=== PATIENT | female | born 1980 | race Caucasian/White ===

== ENCOUNTER 2025-02-18 12:53 | Inpatient (IN) | payer SELFPAY ==
[2025-02-18] VITALS (8 sets, daily range): BP systolic 107–148; BP diastolic 65–98; PULSE 85–125; RESP 15–18; TEMP 36.7–37.1; O2SAT 97–100; BMI 31.4; BMI 34.2
--- NOTE | 2025-02-18 13:19 | EKG12_ITS ---
Test Reason : Blood Pressure : */* mmHG Vent. Rate : 103 BPM Atrial Rate : 103 BPM P-R Int : 126 ms QRS Dur : 66 ms QT Int : 362 ms P-R-T Axes : 53 26 -8 degrees QTcB Int : 474 ms Sinus tachycardia Nonspecific T wave abnormality Abnormal ECG Confirmed by Luca Ring ([id number]), advertising editor SHARMAINE ENCISO ([id number]) on 02/19/2025 10:59:26 AM Referred By: Confirmed By: Luca Ring
--- NOTE | 2025-02-18 13:20 | US_ITS ---
PROCEDURE: ABDOMEN LIMITED 02/18/2025 REASON FOR EXAM: PAIN, JAUNDICE TECHNIQUE: Procedure Code: USABDL Modality: US Procedure: ABDOMEN LIMITED COMPARISON: None FINDINGS: Exam limited by soft tissue attenuation, shadowing bowel gas, and suboptimal penetration of the echogenic liver. Liver: LEFT lobe not visible. Echogenic. 22.0 cm in length. Gallbladder: Distended without visualized stones, significant wall thickening or pericholecystic fluid. Sludge is present. Reportedly, sonographic Jj's was negative. Biliary tree: Unremarkable. CBD measures 3 mm. Pancreas: Partially obscured by shadowing bowel gas, grossly unremarkable as visualized. Right kidney: Unremarkable. 10.6 cm in length. Other: No visualized free fluid. US/Abdomen Limited IMPRESSION: 1. Somewhat limited exam. 2. Distended gallbladder with sludge. No biliary dilatation or definite eviden ce of acute cholecystitis. 3. Hepatomegaly with appearance of the parenchyma most frequently associated w ith hepatic steatosis or other chronic liver disease. Correlate with clinical and laboratory evaluation. 4. Additional description as above. Reading Location: [id number]
--- NOTE | 2025-02-18 13:26 | EDS_ITS ---
HPI HPI - Female History of Present Illness Chief Complaint: Complaint Narrative Narrative: Chief complaint and HPI: 44-year-old female with past medical history of alcohol use presents for evaluation of dysuria and right upper quadrant abdominal pain. Onset of symptoms several weeks but worsened in the last 5 days. On presentation, patient is jaundice which I brought to her and her 's attention. states he has been noticing yellowing discoloration of her eyes for the past week. She states that she drinks a bottle of liquor every few days. Does not feel that she is an alcoholic. She denies any history of daily NSAID use or hepatitis. Denies any gallbladder disease. She denies any fever, chills, shortness of breath, chest pain. Endorses abdominal bloating and decreased p.o. intake. Review of systems: See HPI Medications: As listed on the chart Allergies: As listed on the chart PFSH: Per chart Vital signs: As listed on the chart. Reviewed. Physical exam: Gen: A&O x3, NAD Head: Normocephalic, atraumatic Eyes: + sclera icterus, conjunctiva clear, PERRL ENT: Mildly dry mucous membranes Neck: Trachea midline, No JVD CV: Tachycardic, regular rhythm, no murmurs, no peripheral edema Resp: Lungs CTA BL, no w/r/c GI: Abd soft, mildly distended, tender to palpation in the right upper quadrant and epigastrium, no rebound or rigidity Msc: Full ROM, no deformity Skin: Warm, dry, jaundice Neuro: Alert, oriented, grossly intact, sensation intact Psych: Cooperative, appropriate mood and affect PFS PFS Home Medications ?Medication ?Instructions ?Recorded ?Last Taken ?Type omeprazole 20 mg tablet,delayed 20 mg PO DAILY 5 02/17/25 History release Allergy/AdvReac Type Severity Reaction Status Date / Time No Known Allergies Allergy Verified 02/18/25 12:56 Social History Smoking Status: Never smoker EXAM Physical Exam Const Vital Signs: 02/18/25 12:54 02/18/25 12:56 02/18/25 14:56 Temperature 98.2 F 98.2 F 98.6 F Temperature Source Oral Oral Oral Pulse Rate 125 H 120 H 85 Respiratory Rate 16 18 17 Blood Pressure 148/98 H 148/98 H 110/65 Blood Pressure Mean 114 114 80 Pulse Ox 100 100 100 Oxygen Delivery Method Room Air Room Air Room Air 02/18/25 16:00 02/18/25 16:19 Temperature 98.8 F 98.8 F Temperature Source Oral Pulse Rate 92 92 Respiratory Rate 16 16 Blood Pressure 115/74 115/74 Blood Pressure Mean 87 87 Pulse Ox 98 98 Oxygen Delivery Method Room Air MDM MDM MDM Narrative Medical decision making narrative: 44-year-old female with past medical history of alcohol use presents for evaluation of dysuria and right upper quadrant abdominal pain. Onset of symptoms several weeks but worsened in the last 5 days. On presentation, patient is jaundice which I brought to her and her 's attention. states he has been noticing yellowing discoloration of her eyes for the past week. She states that she drinks a bottle of liquor every few days. Differential diagnosis includes but is not limited to choledocholithiasis, hepatitis, cirrhosis, pancreatic cancer, UTI. NS bolus, morphine, Zofran ordered. Abdominal pain workup ordered including ultrasound. CBC without leukocytosis or anemia. Platelets unremarkable. INR 1.2. CMP shows dehydration without MACIEJ. Patient has hypokalemia of 3.2. P.o. potassium ordered. Lactic acid 3.3. I suspect that lactic acid is elevated secondary to dehydration as well as UTI. Will cover broadly with Zosyn. Urine culture sent. NS bolus running. Patient has hyperbilirubinemia with a direct of 6.81, AST of 324, ALT of 100. Ammonia unremarkable. Lipase unremarkable. Abdominal ultrasound shows distended gallbladder with sludge. No biliary dilation or acute cholecystitis. Common bile duct measures 3 mm. Biliary tree unremarkable. Patient has hepatomegaly with hepatic steatosis or other chronic liver. Pancreas partially obscured by shadowing bowel gas, grossly unremarkable. At this point in time, no biliary obstruction to explain her hyperbilirubinemia. GI, Dr. Trotter was consulted and patient was discussed. Recommended CT abdomen pelvis to get a baseline of the liver. Suspect this is all alcoholic hepatitis. Alcohol level unremarkable. Ammonia level unremarkable. Dr. Trotter agrees with admission. CT abdomen pelvis ordered. I spoke with Dr. Balderrama who accepted admission. She will evaluate the patient after CT abdomen pelvis is performed. Patient was updated of all the results and confirmed understanding of the plan. CT abdomen pelvis pending at this time. EKG: Interpreted by me/EM physician: EKG shows sinus tachycardia nonspecific ST changes. Heart rate 103 Impression: 1. Hyperbilirubinemia 2. Transaminitis 3. Suspect alcoholic hepatitis 4. UTI 6. Hypokalemia with dehydration 7. History of alcohol abuse Lab Data Labs: Laboratory Results - last 24 hr 02/18/25 02/18/25 13:48 14:11 WBC 9.9 RBC 3.81 L Hgb 13.8 Hct 38.3 MCV 100.5 H MCH 36.2 H MCHC 36.0 RDW Std Deviation 63.7 H RDW Coeff of Chrissy 17.3 H Plt Count 196 MPV 10.1 Immature Gran % (Auto) 0.500 Neut % (Auto) 83.8 H Lymph % (Auto) 7.7 L [place] % (Auto) 6.0 Eos % (Auto) 1.0 Baso % (Auto) 1.0 Absolute Neuts (auto) 8.3 H Absolute Lymphs (auto) 0.76 L Nucleated RBC % 0 PT 15.1 H INR 1.2 Sodium 135 Potassium 3.2 L Chloride 92 L Carbon Dioxide 26.7 Anion Gap 15 BUN 5 Creatinine 0.87 Estim Creat Clear Calc 87.26 Est GFR (MDRD) Non-Af 84 BUN/Creatinine Ratio 6.0 L Glucose 120 H Lactic Acid 3.3 H* Calcium 9.2 Total Bilirubin 10.30 H Direct Bilirubin 6.81 H AST 324 H ALT 100 H Alkaline Phosphatase 426 H Ammonia 49.1 Total Protein 8.0 Albumin 3.7 Globulin 4.3 H Lipase 42 Urine Color SEE COMMENT BELOW Urine Clarity Turbid Urine pH 5.0 Ur Specific [place] 1.020 Urine Protein 100 H Urine Glucose (UA) Normal Urine Ketones 5 H Urine Occult Blood 150 H Urine Nitrite Negative Urine Bilirubin 6 H Urine Urobilinogen 12 H Ur Leukocyte Esterase Negative Urine RBC 0 SEEN Urine WBC 10-25 SEEN Ur Squamous Epith Cells 5-10 SEEN Urine Bacteria 3+ Urine Mucus 0 SEEN Ethyl Alcohol < 10.1 Radiography Diagnostic Testing: Clinical Impression(s) from Imaging Studies Abdomen Ultrasound 02/18/25 13:20 IMPRESSION: 1. Somewhat limited exam. 2. Distended gallbladder with sludge. No biliary dilatation or definite evidence of acute cholecystitis. 3. Hepatomegaly with appearance of the parenchyma most frequently associated with hepatic steatosis or other chronic liver disease. Correlate with clinical and laboratory evaluation. 4. Additional description as above. Reading Location: [facility] Discharge Plan Triage Chief Complaint: Complaint ED Provider: Dragan Montiel Dx/Rx/DC Orders Prescriptions: No Action omeprazole 20 mg tablet,delayed release (DR/EC) 20 mg PO DAILY Primary Care Provider: Care Physician,No Primary Referrals: Fadi Lawrence MD [STAFF PHYSICIAN] - Print Language: Georgian
[2025-02-18] MEDS: 0.9% Normal Saline (1000mL) 1,000 ML 999 ML IV ×2 (13:46→19:58)
[2025-02-18 13:57] LABS: Hematocrit 38.3 % (37-47); Hemoglobin 13.8 g/dL (12.0-15.0); Immature Granulocytes Count 0.050 X10^3/uL (0.0-0.0); Mean Corp Hgb Conc 36.0 g/dL (32-36); Mean Corpuscular Volume 100.5 fL (81-99); Mean Platelet Vol. 10.1 fl (6.2-12.0); NRBC Flagged by Analyzer 0 % (0-5); Platelet Count 196 K/mm3 (150-450); RBC Distribution Width CV 17.3 % (11.6-14.6); RBC Distribution Width SD 63.7 fl (35.1-43.9); Red Blood Count 3.81 M/mm3 (4.2-5.4); White Blood Count 9.9 K/mm3 (4.4-11.0)
[2025-02-18 14:05] LABS: Prothrombin Time (Protime)PT. 15.1 SECONDS (11.7-14.9)
--- OUTSIDE RECORDS SUMMARY | 2025-02-18 14:07 | XMS RPT_ITS | CCD ---
Author Organization [facility] Care Team Providers Care Strategic Marketing Leader Name Role Phone KATTY ULLOA MD Unavailable Unavailabl KATTY Sr MD Unavailable Unavailabl e NO REFERRING DR Unavailable Unavailable Unavailable Primary Care Provider Unavailabl e Medications Completed/Discontinued Medications Medication Drug Class(es) Dates Sig (Normalized) Sig (Original) 24 hr buPROPion hydrochloride 300 mg extended release oral tablet (1 source) Aminoketone Start: 12-13-2014 take 1 tablet by mouth once daily buPROPion XL (WELLBUTRIN XL) 300 mg 24 hr tablet Indications: Anxiety disorder , Depression, major Take 1 tablet by mouth once daily. 30 tablet 0 12/13/2014 Active Comment on above: Take 1 tablet by jae th once daily. cholecalciferol 0.05 mg oral capsule (2 sources) Vitamin D Start: 10-08-2014 take 1 tablet by mouth once daily Cholecalciferol, Vitamin D3, 2,000 unit cap Indications: Vitamin D deficiency Take 1 tablet by mouth once daily. 30 capsule 6 10/08/2014 Active Start: 11-28-2013 take 1 capsule by mo [facility] every week cholecalciferol, Vitamin D3, 50,000 unit cap capsule Indications: Vitamin D deficiency Take 1 capsule by mouth once each week. 12 capsule 0 11/28/2013 Active Comment on above: Take 1 capsule by mo [facility] once each week. Take 1 tablet by jae th once daily. clonazePAM 0.5 mg oral tablet (1 source) Benzodiazepine Start: 015 take 1 tablet by mouth twice daily as needed clonazePAM (KLONOPIN) 0.5 mg tablet Indications: Anxiety disorder Take 1 tablet by mouth twice daily as needed. 60 tablet 2 11/04/2014 Active Comment on above: Take 1 tablet by jae th twice daily as needed. cyclobenzaprine hydrochloride 10 mg oral tablet (1 source) Muscle Relaxant Start: 015 take 1 tablet by mouth three times daily as needed for muscle spasms cyclobenzaprine (FLEXERIL) 10 mg tablet Indications: Trapezius muscle spasm Take 1 tablet by mouth three times daily as needed for Muscle Spasm. 60 tablet 3 11/04/2014 Active Comment on above: Take 1 tablet by jae th three times daily as needed for Muscle Spasm. Problems Active Problems Problem Classification Problem Date Documented Da te Episodic/Chronic Anxiety disorders (1 source) Anxiety disorder; Translations: [Anxiety disorder, unspecified] Onset: 11-23-2013 11-23-2013 Chronic External Injury - Natural / Environment (1 source) Exposure to other specified factors, initial encounter; Translations: [EXPOSURE OTHER SPEC FACT] Onset: 11-19-2016 Mood disorders (1 source) Major depressive disorder; Translations: [Major depressive disorder, single episode, unspecified] Onset: 11-23-2013 11-23-2013 Chronic Other female genital disorders (1 source) Dyspareunia; Translations: [Dyspareunia] Onset: 01-23-2014 01-23-2014 Chronic Residual codes; unclassified (1 source) Viral syndrome; Translations: [Other general symptoms and signs] 07-03-2023 Episodic Substance-related disorders (1 source) Nicotine dependence, cigarettes, uncomplicated; Translations: [NICOTINE DEPEND CIGARETT] Onset: 11-19-2016 Chronic Past or Other Problems Problem Classification Problem Date Documented Da te Episodic/Chronic Abdominal pain (1 source) Chronic pelvic pain of female; Translations: [Pelvic and perineal pain] Onset: 01-23-2014 01-23-2014 Episodic Malaise and fatigue (1 source) Fatigue; Translations: [Other fatigue] Onset: 11-23-2013 11-23-2013 Episodic Other injuries and conditions due to external causes (2 sources) Unspecified injury of left wrist, hand and finger(s), initial encounter; Translations: [UNS INJ LT WRIST HAND FI] Onset: 11-19-2016 Episodic Sprains and strains (1 source) Unspecified sprain of left thumb, initial encounter; Translations: [UNSPECIFIED SPRAIN LT TH] Onset: 11-19-2016 Episodic Results Test Name Value Interpretation Reference Range Facility [facility] 07-04-2023 [facility] Telephone ([facility]) NEVAEH NAVARRETE ([id number]) 1980 F JAY[place] Date Time Provider Department 07/04/23 CONCEPCION GOFF During your visit today, we recorded the following information about you: Leann Loco 07/04/2023 10:08 AM Signed Nevaeh is calling Concepcion Goff PA-C today to request a call to advise the lab results from the [facility] in clinic on 07/03/2023 Please call number below which has been verified Patient has been identified by name and birthdate. Duration of symptoms: days Person calling: self Call patient at: at home [phone] (home) Was an appointment scheduled: No Closing statement: Symptom Call: Thank you for calling [facility], your call is very important. A nurse will call in approximately 2-4 hours during business hours. If this is an emergency, please contact 911. Ximena Barcenas APRN.MECHANICAL SERVICE TECHNICIAN 07/04/2023 10:15 AM Signed Spoke to patient. Notified her of positive influenza A results. Outside the window for tamiflu. Allergies As of Date: 07/04/2023 (No Known Allergies) Date Reviewed: 07/03/2023 Reviewed by: Janice Diamond MA - Fully Assessed Reason for Visit: Results [95] Prescriptions as of 07/04/2023 - buPROPion XL (WELLBUTRIN XL) 300 mg 24 hr tablet Take 1 tablet by mouth once daily. - cyclobenzaprine (FLEXERIL) 10 mg tablet Take 1 tablet by mouth three times daily as needed for Muscle Spasm. - clonazePAM (KLONOPIN) 0.5 mg tablet Take 1 tablet by mouth twice daily as needed. - Cholecalciferol, Vitamin D3, 2,000 unit cap Take 1 tablet by mouth once daily. - cholecalciferol, Vitamin D3, 50,000 unit cap capsule Take 1 capsule by mouth once each week. Problem List As Of Date 07/04/2023 Noted Resolved Fatigue [R53.83] 11/23/2013 Anxiety disorder [F41.9] 11/23/2013 Depression, major (HCC) [F32.9] 11/23/2013 Dyspareunia [[id number]] 01/23/2014 Chronic pelvic pain in female [R10.2, G89.29] 01/23/2014 Encounter Status:Closed by XIMENA DENSON on 07/04/23 [facility] CNCOon 07-03-2023 CNCO Letter Text [facility] CNOVon 07-03-2023 CNOV Office Visit ([place] ) NEVAEH NAVARRETE ([id number]) 1980 [facility] Date Time Provider Department 07/03/23 1:00 PM CONCEPCION GOFF During your visit today, we recorded the following information about you: Temperature Pulse Blood pressure Weight 98.5 degrees 85/minute 164/95 89.4 kg Concepcion Goff PA-C 07/03/2023 1:27 PM Signed Nevaeh Navarrete is a 42 year old female with a complaint of cough, nasal congestion, rhinorrhea, fever up to 100.5, chills x 3 days. Works at [employer]. Diarrhea today. Had one episode of vomiting 3 days ago. Denies sob or any other complaints. Home covid test negative on day 1 of symptoms. REVIEW OF SYSTEMS See HPI, otherwise unremarkable. PAST MEDICAL HISTORY Diagnosis Date Anxiety disorder Depression, major Tobacco abuse Vitamin D deficiency 11/2013 PAST SURGICAL HISTORY Procedure Laterality Date TUBAL LIGATION, 2001 FAMILY HISTORY Problem Relation Age of Onset Breast Cancer Paternal Grandmother other (dementia [Other]) Maternal Grandmother Diabetes Paternal Grandfather Social History Tobacco Use Smoking status: Every Day Packs/day: 0.50 Years: 10.00 Additional pack years: 0.00 Total pack years: 5.00 Types: Cigarettes Smokeless tobacco: Never Substance Use Topics Alcohol use: Yes Comment: rarely Drug use: No PHYSICAL EXAMINATION: Vitals: BP 164/95 Pulse 85 Temp 36.9 ?C (98.5 ?F) Wt 89.4 kg (196 lb 15.7 oz) LMP 07/21/2014 SpO2 100% BMI 32.53 kg/m? General Appearance: Well appearing, alert, in no acute distress, well-hydrated, well nourished.. Ears: External ears normal, canals clear. TMs clear Nose/Sinuses: Positive findings: mucosa erythematous and swollen. Oropharynx: Lips, mucosa, and tongue normal, teeth and gums normal, oropharynx normal. Neck: Supple, no adenopathy. Lungs: Lungs clear to auscultation. No wheezing, rhonchi, rales.. Heart: RRR without murmur, gallop, or rubs. No ectopy. ASSESSMENT: DIAGNOSIS: (R68.89) Flu-like symptoms (primary encounter diagnosis) PLAN: ASSESSMENT/PLAN: 1. Flu-like symptoms - ICD9: 780.99, ICD10: R68.89 Supportive care, follow up for new, worsening or persistent sx. Pt in agreement with the plan and verbalized understanding. - COVID AND INFLUENZA A/B AND RSV NAAT, ROUTINE Concepcion Goff PA-C Referring Provider: SELF [200] Allergies As of Date: 07/03/2023 (No Known Allergies) Date Reviewed: 07/03/2023 Reviewed by: Janice Diamond MA - Fully Assessed Reason for Visit: Viral Syndrome [119] Cmt: Symptoms started on the 11 cough, body aches diarrhea No diarrhea this morning, headache, head congestion. Primary Visit Diagnosis:Flu-like symptoms [R68.89] Order(s):COVID AND INFLUENZA A/B AND RSV NAAT, ROUTINE [[id number]] Order #: [id number]. #:[id number] Prescriptions as of 07/03/2023 - buPROPion XL (WELLBUTRIN XL) 300 mg 24 hr tablet Take 1 tablet by mouth once daily. - cyclobenzaprine (FLEXERIL) 10 mg tablet Take 1 tablet by mouth three times daily as needed for Muscle Spasm. - clonazePAM (KLONOPIN) 0.5 mg tablet Take 1 tablet by mouth twice daily as needed. - Cholecalciferol, Vitamin D3, 2,000 unit cap Take 1 tablet by mouth once daily. - cholecalciferol, Vitamin D3, 50,000 unit cap capsule Take 1 capsule by mouth once each week. Problem List As Of Date 07/03/2023 Noted Resolved Fatigue [R53.83] 11/23/2013 Anxiety disorder [F41.9] 11/23/2013 Depression, major (HCC) [F32.9] 11/23/2013 Dyspareunia [CJD7616] 01/23/2014 Chronic pelvic pain in female [R10.2, G89.29] 01/23/2014 Encounter Status:Closed by CONCEPCION GOFF on 07/03/23 Normal [facility] COVID AND INFLUENZA A/B AND RSV NAAT, ROUTINEon 07-03-2023 SARS-CoV-2 (COVID-19) RNA ELGIN+probe Ql (Unsp spec) COVID 19 RESULT: Not detected The method used is RT-PCR or an equivalent NAAT method. Reference Range (the expected result in uninfected individuals): Not detected INFLUENZA A PCR: Detected INFLUENZA B PCR: Not detected RSV PCR: Not detected Abnormal [facility] Comment on above: Performed By: #### C VFLRS #### [facility] CLIA [id number] [address] [place] [address] [place] Phone Msgon 05-21-2021 Phone Msg - From: Elizabeth Sheffield To: Shirin Johnson; Sent: 04/30/2021 10:56:44 EST Subject: re msg 04/16 Pt is calling back, this is the first day of her period and she was told to call to get scheduled for IUD. No available appts. [phone] From: Shirin Johnson To: Elizabeth Sheffield; Sent: 04/30/2021 11:22:14 EST Subject: RE: re msg 04/16 Is patient aware to call back next month? From: Elizabeth Sheffield To: Shirin Johnson; Sent: 04/30/2021 12:54:55 EST Subject: RE: re msg 04/16 she was under the impression that Dr would fit her in to an appt, so I dont think she does From: Shirin Johnson To: [facility] [employer]; Sent: 04/30/2021 13:15:44 EST Subject: FW: re msg 04/16 I LVM for patient- Please push patient through to the office Patient has not returned call. Normal [facility] Amb Office-Progress Notes-Pr ovideron 04-19-2021 Amb Office-Progress Notes-Provider Assessment/Plan 1. Abnormal uterine bleeding (AUB) N93.9 plan Mirena IUD 2. Menorrhagia N92.0 3. Tobacco use Z72.0 Chief Complaint f/u from [facility] on 03/31, discuss surgery History of Present Illness AUB- bleeds for a full month emb was normal + tobacco didn't tolerate aygestin no evidence of adenomyosis risk bleeding expectations discussed with mirena, ablation but hyst is major surgery she isn't ready for hyst yet she states recommended IUD if she doesn't like we can do ablation but can't go reverse Physical Exam Vitals & Measurements BP: 140/90 HT: 165 cm WT: 88.8 kg BMI: 32.62 Depression Screening Scores Initial Depression Screen Score: 0 (04/13/21 08:33:00) Fall Risk Assessment Is the patient ambulatory (mobile): Yes (04/13/21 08:33:00) Have you had a fall within the past: No (04/13/21 08:33:00) Have you had 2 or more falls in the past: No (04/13/21 08:33:00) OB History History (2,0,0,2) # 1 Baby 1 Outcome Date: 1998 Outcome: Live Outcome or Result: Vaginal Gender: Male Gest Age: 40 weeks Wt: -- Hospital: other [facility] Labor: -- Child's Name: -- Baby's Father: -- # 2 Baby 1 Outcome Date: 2001 Outcome: Live Outcome or Result: Vaginal Gender: Female Gest Age: 40 weeks Wt: -- Hospital: other [facility] Labor: -- Child's Name: -- Baby's Father: -- Problem List/Past Medical History Ongoing Abnormal uterine bleeding (AUB) Adult BMI 32.0-32.9 kg/sq m Menorrhagia Tobacco use Historical Procedure/Surgical History Last pap - Neg w/Neg HPV (02/17/2021) BTL (2001) Mammogram-never Allergies No Known Allergies No Known Medication Allergies Social History Alcohol Current, 12/08/2020 Sexual Other contraceptive use: BTL., 12/08/2020 Substance Abuse - Denies Substance Abuse, 12/08/2020 Tobacco 5-9 cigarettes (between 1/4 to 1/2 pack)/day in last 30 days Tobacco Use:., 12/08/2020 Family History Breast cancer..: Grandmother. Normal [facility] Phone Msgon 04-16-2021 Phone Msg - From: Shirin Johnson To: [facility] [employer]; Sent: 04/13/2021 09:06:40 EDT Subject: PA Will you please PA the patient for the Mirena for Dr. Betancourt From: Leandra Motta ([facility] [employer]) To: Shirin Johnson; Sent: 04/16/2021 13:36:53 EDT Subject: RE: PA Spoke with Erika and pt is covered under [employer] for insertion/removal. No copay. Calendar year benefits. REF# [id number] From: Shirin Johnson [facility] [employer]; Sent: 04/16/2021 15:50:51 EDT Subject: RE: PA Patient made aware and advised to call on the first day of her period to get her scheduled Normal [facility] Ambulatory Clinical Summaryo n 04-13-2021 Ambulatory Clinical Summary NEVAEH NAVARRETE :1980 Visit Date:04/13/2021 Ambulatory Visit Instructions Your Diagnosis Abnormal uterine bleeding (AUB) Menorrhagia Your Care Team Attending Physician - SERENA ARREDONDO Primary Care Physician - NO FAMILY PHYSICIAN, 837 Procedures Performed Last pap - Neg w/Neg HPV (02/17/2021) BTL (2001) Mammogram-never Discharge Vitals Blood Pressure 140/90 Height 165 cm Weight 88.8 kg BMI 32.62 Systolic Blood Pressure: 140 mmHg (04/13/21 08:33:00) Diastolic Blood Pressure: 90 mmHg (04/13/21 08:33:00) Mean Arterial Pressure: 107 mmHg (04/13/21 08:33:00) Height/Length Measured: 165 cm (04/13/21 08:33:00) Weight Measured: 88.8 kg (04/13/21 08:33:00) Body Mass Index Measured: 32.62 kg/m2 (04/13/21 08:33:00) Weight Measured - lbs2: 195 lb (04/13/21 08:33:00) Height/Length Measured - in2: 64.96 in (04/13/21 08:33:00) Body Mass Index Measured English2: 32.49 kg/m2 (04/13/21 08:33:00) BSA: 2.01 m2 (04/13/21 08:33:00) Ht/Wt Measurement Refused by Patient?2: No (04/13/21 08:33:00) What to do next Scheduled Follow-Up Appointments No results Medications What How Much When Why Instructions Unchanged norethindrone (Aygestin 5 mg oral tablet) 1 Tabs Oral DAILY Abnormal uterine bleeding (AUB) Unchanged progesterone (Prometrium 100 mg oral capsule) 1 Capsules Oral AT BEDTIME Dysmenorrhea Allergies No Known Allergies No Known Medication Allergies Problems Ongoing - Any problem that you are currently receiving treatment for. Abnormal uterine bleeding (AUB) Adult BMI 32.0-32.9 kg/sq m Menorrhagia Tobacco use Historical - Any problem that you are no longer receiving treatment for. Common Emergency Awareness Tips IS IT A STROKE? Act FAST and Check for these signs: FACE Does the face look uneven? ARM Does one arm drift down? SPEECH Does their speech sound strange? TIME Call at any sign of stroke Heart Attack Signs Chest discomfort: Most heart attacks involve discomfort in the center of the chest and lasts more than a few minutes, or goes away and comes back. It can feel like uncomfortable pressure, squeezing, fullness or pain. Discomfort in upper body: Symptoms can include pain or discomfort in one or both arms, back, neck, jaw or stomach. Shortness of breath: With or without discomfort. Other signs: Breaking out in a cold sweat, nausea, or lightheaded. Remember, MINUTES DO MATTER. If you experience any of these heart attack warning signs, call to get immediate medical attention! Normal [facility] HYSTERSONOGRAPHY OFFICE Peter Callaway 04-09-2021 HYSTERSONOGRAPHY OFFICE READ INBOUND SALES ADVISOR U/S TV Date: 03/31/2021 Indication: AUB SIS Uterus: 6.4 cm x 3.8 cm x 5.0 cm Endometrium: 4.0mm Position: retroverted Right Ovary: 13 mm x 16 mm x 14 mm well visualized, subcentimeter follicles present Flow normal Left Ovary: 14 mm x 13 mm x 8 mm well visualized, subcentimeter follicles present Flow normal No Free fluid in cul de sac IMPRESSION: Normal pelvic us No adnexal masses No acute process SIS= Saline infused Sonohysterogram Catheter seen inside cavity fluid distends with adequate view of uterine cavity. Endometrial lining visualized without difficulty. No pathology seen. Findings reviewed with patient. _ Normal [facility] Comment on above: Order Comment: Order ed on Fin# [id number] Result Comment: Tech nologist: DM Dictated By: SERENA ARREDONDO Signed By: SERENA ARREDONDO Transcribed: 04.09.2021 08:23 Signed Out: 04/09/21 08:23:31 Amb Office-Progress Notes-Pr ovideron 04-05-2021 Amb Office-Progress Notes-Provider Assessment/Plan 1. Abnormal uterine bleeding (AUB) N93.9 emb done 2. Pre-procedure lab exam Z01.812 3. Tobacco use Z72.0 no estrogen Chief Complaint u/s f/u, AUB, doesnt like aygestin makes her feel weird History of Present Illness AUB + tobacco prometrium didn't control bleeding Aygestin controlled bleeding but she didn't like how it made her feel lining today is thin SIS done with EMb to discuss next step of treatment she reported no period for 45 days and then reported to me bleeding non stop mirena or ablation or hyst discussed will get results of biopsy and discussed no evidence of adenomyosis risk bleeding expectations discussed with mirena, ablation but hyst is major surgery Physical Exam Vitals & Measurements BP: 130/88 HT: 165 cm WT: 88.8 kg BMI: 32.62 Depression Screening Scores Initial Depression Screen Score: 0 (03/31/21 10:16:00) Fall Risk Assessment Is the patient ambulatory (mobile): Yes (03/31/21 10:16:00) Have you had a fall within the past: No (03/31/21 10:16:00) Have you had 2 or more falls in the past: No (03/31/21 10:16:00) Procedure: Saline Infused Sonogram and Endometrial Biopsy Consent: Informed consent was obtained. Prep: The patient was placed in the dorsal lithotomy position, a speculum was placed in the vagina. The cervix was cleansed with betadyne solution.. Procedure: The cervix was stabilized with ring forceps. Uterus was sounded to __6_cm. Endometrial pipelle placed without difficulty and multiple passes were made. Adequate tissue obtained. The specimen sent to pathology. The SIS catheter was placed into the uterus easily, and saline was infused without difficulty. The cavity was visualized well. There was no evidence of pathology. There was not evidence of adenomyosis. Post procedure: Patient tolerated procedure well OB History History (2,0,0,2) # 1 Baby 1 Outcome Date: 1998 Outcome: Live Outcome or Result: Vaginal Gender: Male Gest Age: 40 weeks Wt: -- Hospital: other [facility]: -- Child's Name: -- Baby's Father: -- # 2 Baby 1 Outcome Date: 2001 Outcome: Live Outcome or Result: Vaginal Gender: Female Gest Age: 40 weeks Wt: -- Hospital: other [facility]: -- Child's Name: -- Baby's Father: -- Problem List/Past Medical History Ongoing Abnormal uterine bleeding (AUB) Adult BMI 32.0-32.9 kg/sq m Menorrhagia Tobacco use Historical Procedure/Surgical History Last pap - Neg w/Neg HPV (02/17/2021) BTL (2001) Mammogram-never Medications Aygestin 5 mg oral tablet, 5 mg= 1 tabs, ORAL, DAILY Allergies No Known Allergies No Known Medication Allergies Social History Alcohol Current, 12/08/2020 Sexual Other contraceptive use: BTL., 12/08/2020 Substance Abuse - Denies Substance Abuse, 12/08/2020 Tobacco 5-9 cigarettes (between 1/4 to 1/2 pack)/day in last 30 days Tobacco Use:., 12/08/2020 Family History Breast cancer..: Grandmother. Normal [facility] SURGICAL PATH REPORTon 04-03 SURGICAL PATH REPORT [facility] Department of Pathology [address] [place] [id number] Name: NEVAEH NAVARRETE : 1980 [facility] [id number] Number: Gender: Female Location: [facility]. Admit 40 years Attending SERENA ARREDONDO Age: Provider: Ordering SERENA ARREDONDO Provider: Consulting: Surgical Pathology Report ACCESSION: COLLECTED DATE/TIME: RECEIVED DATE/TIME: PATHOLOGIST: [id number] 03/31/2021 10:40 EDT 04/01/2021 08:31 EDT PILO FELIPE MD Final Diagnosis ENDOMETRIUM, BIOPSY: - STRIPS AND FRAGMENTS OF BENIGN ENDOMETRIUM OF INDETERMINATE DATE. - NEGATIVE FOR MALIGNANCY OR HYPERPLASIA. PILO FELIPE PATHOLOGIST (Electronic Signature) Date Verified 04/03/2021 WW Clinical Data PRE-OP DIAGNOSIS: AUB POST-OP DIAGNOSIS: Not specified PROCEDURES: SIS/endometrial biopsy SPECIMEN: Endometrial biopsy Gross Description Labeled endometrial bx. Received in formalin are multiple irregular grover feathery segments of soft tissue. The specimen is filtered and has a filtrate aggregate dimension of 0.9 x 0.5 x 0.1 cm. The specimen is entirely submitted in one cassette. MP/ww 04/01/2021 Codes CPT CODE: 79651 Print Date/ 04/03/2021 16:09 EDT Number: Time: Normal [facility] Comment on above: Performed By: #### [id number] ####[facility] [id number] [place] [address] Medical Director: Kristian Arellano MD [facility] Clinical Summary NEVAEH NAVARRETE :1980 Visit Date:03/31/2021 Ambulatory Visit Instructions Your Diagnosis Abnormal uterine bleeding (AUB) Pre-procedure lab exam Tobacco use Tests Performed AMB Urine POC [id number] US HYSTERSONOGRAPHY OFFICE READ -- Results Pending -- You will be contacted within 72 hours with your results. Your Care Team Attending Physician - SERENA ARREDONDO Primary Care Physician - NO FAMILY PHYSICIAN, 837 Procedures Performed Last pap - Neg w/Neg HPV (02/17/2021) BTL (2001) Mammogram-never Discharge Vitals Blood Pressure 130/88 Height 165 cm Weight 88.8 kg BMI 32.62 Systolic Blood Pressure: 130 mmHg (03/31/21 10:16:00) Diastolic Blood Pressure: 88 mmHg (03/31/21 10:16:00) Mean Arterial Pressure: 102 mmHg (03/31/21 10:16:00) Height/Length Measured: 165 cm (03/31/21 10:16:00) Weight Measured: 88.8 kg (03/31/21 10:16:00) Body Mass Index Measured: 32.62 kg/m2 (03/31/21 10:16:00) Weight Measured - lbs2: 195 lb (03/31/21 10:16:00) Height/Length Measured - in2: 64.96 in (03/31/21 10:16:00) Body Mass Index Measured English2: 32.49 kg/m2 (03/31/21 10:16:00) BSA: 2.01 m2 (03/31/21 10:16:00) Ht/Wt Measurement Refused by Patient?2: No (03/31/21 10:16:00) What to do next Scheduled Follow-Up Appointments Appointment Type Reason for visit Day With Date Time Where City&State Established Patient 2 Week Follow Up- Discuss Results Tuesday Serena Betancourt April 13, 2021 08:20 am EDT Sandra LEIJA Medications What How Much When Why Instructions Unchanged norethindrone (Aygestin 5 mg oral tablet) 1 Tabs Oral DAILY Abnormal uterine bleeding (AUB) Unchanged progesterone (Prometrium 100 mg oral capsule) 1 Capsules Oral AT BEDTIME Dysmenorrhea Test Results AMB Urine POC [id number] (03/31/2021) U beta hCG Ql - Negative Allergies No Known Allergies No Known Medication Allergies Problems Ongoing - Any problem that you are currently receiving treatment for. Abnormal uterine bleeding (AUB) Adult BMI 32.0-32.9 kg/sq m Menorrhagia Tobacco use Historical - Any problem that you are no longer receiving treatment for. Common Emergency Awareness Tips IS IT A STROKE? Act FAST and Check for these signs: FACE Does the face look uneven? ARM Does one arm drift down? SPEECH Does their speech sound strange? TIME Call at any sign of stroke Heart Attack Signs Chest discomfort: Most heart attacks involve discomfort in the center of the chest and lasts more than a few minutes, or goes away and comes back. It can feel like uncomfortable pressure, squeezing, fullness or pain. Discomfort in upper body: Symptoms can include pain or discomfort in one or both arms, back, neck, jaw or stomach. Shortness of breath: With or without discomfort. Other signs: Breaking out in a cold sweat, nausea, or lightheaded. Remember, MINUTES DO MATTER. If you experience any of these heart attack warning signs, call to get immediate medical attention! Normal [facility] Phone Msgon 03-04-2021 Phone Msg - From: Jasmyne Leon RN To: Jasmyne Leon RN; Sent: 03/04/2021 10:57:29 EDT Pt notified of pap and hpv results- showed signs of BV but pt is not symptomatic Normal [facility] THIN PREP IMAGE SEND OUTon 0 02-28-2021 THIN PREP IMAGE SEND OUT See Report Normal [facility] Comment on above: Order Comment: Order ed on Fin# [id number] Performed By: #### C [id number] ####[facility] [id number] [place] [address] Medical Director: Kristian Arellano MD GP HPVon 02-19-2021 GP HPV Negative Normal [facility] Comment on above: Order Comment: Order ed on Fin# [id number] Result Comment: This HPV assay is being performed via a second generation NAAT that utilizes target capture, general surgery physician assistant mediated amplification and dual kenetic assay technologies. Performed By: #### C [id number] #### [facility] [address] [place] [address] Business Lawyer: MD Jimi Talavera Office-Progress Notes-Pr ovideron 02-17-2021 Amb Office-Progress Notes-Provider Assessment/Plan 1. Well woman exam Z01.419 2. Abnormal uterine bleeding (AUB) N93.9 Ordered: Aygestin 5 mg oral tablet, 5 mg 1 tabs, ORAL, DAILY, 90 tabs, Date: 02/17/2021 15:39:00 EDT, [facility], Tablet, 1 tabs ORAL DAILY, Abnormal uterine bleeding (AUB) AMB Follow - Up Appt Amb, 02/17/2021 15:34:00 EDT, Other: pelvic possible SIS 3. Screening mammogram, encounter for Z12.31 Ordered: MAMM DIGITAL SCRN BILATERAL, 02/17/2021, Routine, SCREENING, Screening mammogram, encounter for 4. Cervical cancer screening Z12.4 Ordered: GP HPV, ROUTINE, 02/17/2021, Specimen type: Cervical, Dx: Cervical cancer screening THIN PREP IMAGE SEND OUT, ROUTINE, 02/17/2021, Specimen type: INBOUND SALES ADVISOR Spec, Dx: Cervical cancer screening Chief Complaint Here for Annual exam, Unknown last pap. Mammo-never. LMP still having AUB on prometrium History of Present Illness Annual due for pap due for mammo AUB still prometrium not working will try aygestin + tobacco she needs u/s as prometrium not working periods- 14 days long heavy for 2-3 days- change q q4-5 pads overnights, change at night or flood the sheet clots- half dollar occ usually quarter plan change to aygestin Review of Systems Constitutional: Denies chills, denies fever, no weight gain/loss, energized Eyes: no blurry vision, no double vision, normal conjunctiva Cardiovascular: denies angina, denies chest pain, denies palpitations Respiratory: denies difficulty breathing, denies chest tightness, denies cough Gastrointestinal: denies abdominal pain, denies diarrhea, denies dysphagia, denies nausea, denies vomiting Genitourinary: see HPI for details Musculoskeletal: denies arthralgias, denies muscle aches, denies paresthesia Skin: denies hives, denies rashes, denies sores Psychologic: denies anxiety, denies hallucinations, denies agitation Physical Exam Vitals & Measurements BP: 124/84 HT: 165 cm WT: 87.7 kg BMI: 32.21 LMP: 12/25/2020 00:00 EDT Depression Screening Scores Initial Depression Screen Score: 0 (02/17/21 14:58:00) Fall Risk Assessment Is the patient ambulatory (mobile): Yes (02/17/21 14:58:00) Have you had a fall within the past: No (02/17/21 14:58:00) Have you had 2 or more falls in the past: No (02/17/21 14:58:00) Constitutional: Appears appropriate for age, non-toxic, and comfortable. No signs of apparent distress present. Speech is clear and appropriate. Awake and oriented x3. Stand comfortably erect. Patient is cooperative. VSS and reviewed Eyes: Full range of extra-ocular motion. Conjunctivae clear. Neck: supple and no thyromegaly Respiratory: Chest expansion is adequate bilaterally. Lungs Clear Cardiovascular: Rate is regular and rhythm, Abdomen: Soft and Non-tender, Non distended Musculoskeletal: Walks with a normal gait. Motor strength is intact Ext: No C/C/E Skin: Warm and dry with no evidence of unusual rashes or suspicious lesions. Neurological: Alert and oriented x 3. Mood is normal. Extremities: No clubbing, Cyanosis or edema INBOUND SALES ADVISOR EXAM: Breast exam: normal bilateral breast tissue, no skin changes no masses and no nipple discharge, no LAD Pelvic Exam: Ext Gen: normal Vulva anatomy no rash Perineum: no lesions and intact Vagina: no cystocele or rectocele vaginal mucosa healthy pink Cervix: no CMT, discharge present normal Bladder: non tender on palpation Uterus: normal size and mobile midline, NT adnexa: NT and no masses Pelvic muscles: normal muscle tauntness/support INBOUND SALES ADVISOR Additional Details Menstrual History Menstrual StatusMenarcheal Last Menstrual Vptesl8912/25/2020 OB History History (2,0,0,2) # 1 Baby 1 Outcome Date: 1998 Outcome: Live Outcome or Result: Vaginal Gender: Male Gest Age: 40 weeks Wt: -- Hospital: other [facility]: -- Child's Name: -- Baby's Father: -- # 2 Baby 1 Outcome Date: 2001 Outcome: Live Outcome or Result: Vaginal Gender: Female Gest Age: 40 weeks Wt: -- Hospital: other [facility]: -- Child's Name: -- Baby's Father: -- Problem List/Past Medical History Ongoing Adult BMI 32.0-32.9 kg/sq m Historical Procedure/Surgical History BTL (2001) Last pap-unsure Mammogram-never Medications Aygestin 5 mg oral tablet, 5 mg= 1 tabs, ORAL, DAILY Prometrium 100 mg oral capsule, 100 mg= 1 caps, ORAL, QHS Allergies No Known Allergies No Known Medication Allergies Social History Alcohol Current, 12/08/2020 Sexual Other contraceptive use: BTL., 12/08/2020 Substance Abuse - Denies Substance Abuse, 12/08/2020 Tobacco 5-9 cigarettes (between 1/4 to 1/2 pack)/day in last 30 days Tobacco Use:., 12/08/2020 Family History Breast cancer..: Grandmother. Normal [facility] Ambulatory Clinical Summaryo n 02-17-2021 Ambulatory Clinical Summary NEVAEH NAVARRETE :1980 Visit Date:02/17/2021 Ambulatory Visit Instructions Your Diagnosis Well woman exam Abnormal uterine bleeding (AUB) Screening mammogram, encounter for Cervical cancer screening Menorrhagia Tobacco use Your Care Team Attending Physician - SERENA ARREDONDO Primary Care Physician - NO FAMILY PHYSICIAN, 837 Procedures Performed BTL (2001) Last pap-unsure Mammogram-never Discharge Vitals Blood Pressure 124/84 Height 165 cm Weight 87.7 kg BMI 32.21 Systolic Blood Pressure: 124 mmHg (02/17/21 14:58:00) Diastolic Blood Pressure: 84 mmHg (02/17/21 14:58:00) Mean Arterial Pressure: 97 mmHg (02/17/21 14:58:00) Height/Length Measured: 165 cm (02/17/21 14:58:00) Weight Measured: 87.7 kg (02/17/21 14:58:00) Body Mass Index Measured: 32.21 kg/m2 (02/17/21 14:58:00) Height/Length Measured - in2: 65 in (02/17/21 14:58:00) Ht/Wt Measurement Refused by Patient?2: No (02/17/21 14:58:00) Last Menstrual Period: 12/25/20 (02/17/21 14:58:00) What to do next Scheduled Follow-Up Appointments Appointment Type Reason for visit Day With Date Time Where City&State [place] - 40 POSS Tuesday Ultrasound - [facility] March 31, 2021 10:00 am EDT [facility]/ Endometrial Biopsy POSS Tuesday Serena Betancourt DO March 31, 2021 10:30 am EDT [facility]/ You Need to Schedule the Following Appointments GP HPV, ROUTINE, 02/17/2021, Specimen type: Cervical, Dx: Cervical cancer screening THIN PREP IMAGE SEND OUT, ROUTINE, 02/17/2021, Specimen type: INBOUND SALES ADVISOR Spec, Dx: Cervical cancer screening MAMM DIGITAL SCRN BILATERAL, 02/17/2021, Routine, SCREENING, Screening mammogram, encounter for Medications What How Much When Why Instructions New norethindrone (Aygestin 5 mg oral tablet) 1 Tabs Oral DAILY Abnormal uterine bleeding (AUB) Pickup at [facility] Unchanged progesterone (Prometrium 100 mg oral capsule) 1 Capsules Oral AT BEDTIME Dysmenorrhea Pharmacy Information [facility] #69: [address] [place], [place] [phone] Allergies No Known Allergies No Known Medication Allergies Problems Ongoing - Any problem that you are currently receiving treatment for. Abnormal uterine bleeding (AUB) Adult BMI 32.0-32.9 kg/sq m Menorrhagia Tobacco use Historical - Any problem that you are no longer receiving treatment for. Common Emergency Awareness Tips IS IT A STROKE? Act FAST and Check for these signs: FACE Does the face look uneven? ARM Does one arm drift down? SPEECH Does their speech sound strange? TIME Call at any sign of stroke Heart Attack Signs Chest discomfort: Most heart attacks involve discomfort in the center of the chest and lasts more than a few minutes, or goes away and comes back. It can feel like uncomfortable pressure, squeezing, fullness or pain. Discomfort in upper body: Symptoms can include pain or discomfort in one or both arms, back, neck, jaw or stomach. Shortness of breath: With or without discomfort. Other signs: Breaking out in a cold sweat, nausea, or lightheaded. Remember, MINUTES DO MATTER. If you experience any of these heart attack warning signs, call to get immediate medical attention! Normal [facility] Amb Office-Progress Notes-Pr ovideron 12-12-2020 Amb Office-Progress Notes-Provider Assessment/Plan 1. Abnormal uterine bleeding (AUB) N93.9 start with prometrium if persists needs u/s 2. Dysmenorrhea N94.6 due for pap and mammo med check annual in 2 months Chief Complaint New pt to discuss her periods, painful, irregular periods. happening for six months now. no recent u/s History of Present Illness Due for pap and mammo, last pap 8 years ago will use annual as followup s/p tubal Irregular periods= 6 months once a month heavy= yes change = pads and tampon q 1 hr- supers for 1 days clots= Quarter pain- yes occuring for how long= 6-30 days workup= had an u/s years ago heart shape/ retroverted treatment options tried= they recommended ocp but she declined smoker- yes acne-no migraines with aura-no family history of stroke/DVT - no post coital bleeding- no risks for uterine cancer reviewed workup discussed treatment options discussed R/B/A occ sleep issues will start with prometrium History (2,0,0,2) # 1 Baby 1 Outcome Date: 1998 Outcome: Live Outcome or Result: Vaginal Gender: Male Gest Age: 40 weeks Wt: -- Hospital: other [facility]: -- Child's Name: -- Baby's Father: -- # 2 Baby 1 Outcome Date: 2001 Outcome: Live Outcome or Result: Vaginal Gender: Female Gest Age: 40 weeks Wt: -- Hospital: other [facility]: -- Child's Name: -- Baby's Father: -- Physical Exam Vitals & Measurements BP: 120/82 HT: 165 cm WT: 87.7 kg BMI: 32.21 LMP: 11/19/2020 00:00 EDT Depression Screening Scores Initial Depression Screen Score: 0 (12/08/20 14:20:00) Fall Risk Assessment Is the patient ambulatory (mobile): Yes (12/08/20 14:20:00) Have you had a fall within the past: No (12/08/20 14:20:00) Have you had 2 or more falls in the past: No (12/08/20 14:20:00) Constitutional: Appears appropriate for age, non-toxic, and comfortable. No signs of apparent distress present. Speech is clear and appropriate. Patient is cooperative. VSS and reviewed Eyes: Pupils observed equal. Conjunctivae clear. Neck: Supple and no observed Thyromegaly Respiratory: Chest expansion is adequate bilaterally. No work of breath Musculoskeletal: Walks with a normal gait. Motor strength is observed intact Neurological: Alert and oriented x 3. Mood is normal. INBOUND SALES ADVISOR Additional Details Menstrual History Last Menstrual Nkyahb9111/19/2020 OB History History (2,0,0,2) # 1 Baby 1 Outcome Date: 1998 Outcome: Live Outcome or Result: Vaginal Gender: Male Gest Age: 40 weeks Wt: -- Hospital: other [facility]: -- Child's Name: -- Baby's Father: -- # 2 Baby 1 Outcome Date: 2001 Outcome: Live Outcome or Result: Vaginal Gender: Female Gest Age: 40 weeks Wt: -- Hospital: other [facility]: -- Child's Name: -- Baby's Father: -- Problem List/Past Medical History Ongoing No qualifying data Historical Procedure/Surgical History BTL (2001) Last pap-unsure Mammogram-never Medications Prometrium 100 mg oral capsule, 100 mg= 1 caps, ORAL, QHS Allergies No Known Medication Allergies Social History Alcohol Current, 12/08/2020 Sexual Other contraceptive use: BTL., 12/08/2020 Substance Abuse - Denies Substance Abuse, 12/08/2020 Tobacco 5-9 cigarettes (between 1/4 to 1/2 pack)/day in last 30 days Tobacco Use:., 12/08/2020 Family History Breast cancer..: Grandmother. Normal [facility] Ambulatory Clinical Summaryo n 12-08-2020 Ambulatory Clinical Summary NEVAEH NAVARRETE :1980 Visit Date:12/08/2020 Ambulatory Visit Instructions Your Diagnosis Abnormal uterine bleeding (AUB) Dysmenorrhea Your Care Team Attending Physician - SERENA ARREDONDO Primary Care Physician - NO FAMILY PHYSICIAN, 837 Procedures Performed BTL (2001) Last pap-unsure Mammogram-never Discharge Vitals Blood Pressure 120/82 Height 165 cm Weight 87.7 kg BMI 32.21 Systolic Blood Pressure: 120 mmHg (12/08/20 14:20:00) Diastolic Blood Pressure: 82 mmHg (12/08/20 14:20:00) Mean Arterial Pressure: 95 mmHg (12/08/20 14:20:00) Height/Length Measured: 165 cm (12/08/20 14:20:00) Weight Measured: 87.7 kg (12/08/20 14:20:00) Body Mass Index Measured: 32.21 kg/m2 (12/08/20 14:20:00) Height/Length Measured - in2: 65 in (12/08/20 14:20:00) Ht/Wt Measurement Refused by Patient?2: No (12/08/20 14:20:00) Last Menstrual Period: 11/19/20 (12/08/20 14:20:00) What to do next Scheduled Follow-Up Appointments Tuesday 3:00 PM EDT With: SERENA ARREDONDO Where: [facility] Medications What How Much When Why Instructions New progesterone (Prometrium 100 mg oral capsule) 1 Capsules Oral AT BEDTIME Dysmenorrhea Pickup at [facility] Pharmacy Information [facility]: [address], [place] [phone] Allergies No Known Medication Allergies Problems Historical - Any problem that you are no longer receiving treatment for. Common Emergency Awareness Tips IS IT A STROKE? Act FAST and Check for these signs: FACE Does the face look uneven? ARM Does one arm drift down? SPEECH Does their speech sound strange? TIME Call at any sign of stroke Heart Attack Signs Chest discomfort: Most heart attacks involve discomfort in the center of the chest and lasts more than a few minutes, or goes away and comes back. It can feel like uncomfortable pressure, squeezing, fullness or pain. Discomfort in upper body: Symptoms can include pain or discomfort in one or both arms, back, neck, jaw or stomach. Shortness of breath: With or without discomfort. Other signs: Breaking out in a cold sweat, nausea, or lightheaded. Remember, MINUTES DO MATTER. If you experience any of these heart attack warning signs, call to get immediate medical attention! Normal [facility] Vital Signs Date Time Vital Sign Value Performing Clinician Alessandra pineda 07-03-2023 13:15-0500 Body temperature 98.49 [degF] Concepcion Goff PA-C Work Phone: [facility] 07-03-2023 13:15-0500 Body weight 89.35 kg Concepcion JEFFERSON-C Work Phone: [facility] 07-03-2023 13:15-0500 Diastolic blood pressure 95 mm[Hg] Concepcion JEFFERSON-C Work Phone: [facility] 07-03-2023 13:15-0500 Heart rate 85 /min Concepcion JEFFERSON-C Work Phone: [facility] 07-03-2023 13:15-0500 SaO2% (BldA) [Mass fraction] 100 % Concepcion JEFFERSON-C Work Phone: [facility] 07-03-2023 13:15-0500 Systolic blood pressure 164 mm[Hg] Concepcion JEFFERSON-C Work Phone: [facility] Encounters Encounter Date Encounter Type Care Provider Facility Start: 07-03-2023 End: 07-03-2023 ambulatory Facility:[facility] Start: 07-03-2023 End: 07-03-2023 Patient encounter procedure Concepcion JEFFERSON-C Work Phone: [facility] Comment on above: Flu-like symptoms (P rimary Dx) Start: 11-19-2016 End: 11-19-2016 Emergency department patient visit KATTY ULLOA MD Facility:[facility] Plan of Treatment Date Care Activity Detail Author Start: 08-07-2024 Urine microalbumin profile DTaP,Tdap,Td Vaccine (2 - Td or Tdap) [facility] Start: 02-18-2023 Influenza vaccination Influenza Vacc ine (#1) [facility] Start: 01-23-2019 Screening for malign ant neoplasm of cervix [facility] Start: 2018 Screening for malign ant neoplasm of breast Mammogram Screening [facility] Start: 08-07-2015 Pneumococcal vaccination Pneumococcal Vaccine (2 of 2 - PCV) [facility] Start: 1996 Hepatitis C screening Hepatitis C Sc reening [facility] Start: 1996 HIV screening HIV Screening [facility] Start: 03-28-1979 Covid-19 Vaccine (#1) Covid-19 Vacci ne (#1) [facility] Start: 1978 Hepatitis B Vaccine (1 of 3 - 3-dose series) Hepatitis B Vaccine (1 of 3 - 3-dose series) [facility] COVID & INFLUENZA A/ B & RSV NAAT, ROUTINE COVID & INFLUENZA A/B & RSV NAAT, ROUTINE Microbiology Routine Flu-like symptoms Ordered: 07/03/2023 [facility] Work Phone: Comment on above: Ordered: 07/03/2023 Immunizations Immunization Date Immunization Notes Care Provider Fa cility 08-07-2014 pneumococcal polysaccharide vaccine, 23 valent Concepcion Goff PA-C Work Phone: [facility] Work Phone: 08-07-2014 tetanus toxoid, redu jesús diphtheria toxoid, and acellular pertussis vaccine, adsorbed Concepcion Goff PA-C Work Phone: [facility] Work Phone: 04-09-2014 influenza, seasonal, injectable Concepcion Goff PA-C Work Phone: [facility] Work Phone: 04-09-2014 influenza virus vacc ine, unspecified formulation Concepcion Goff PA-C Work Phone: [facility] Payers Date Payer Category Payer Policy ID Unknown [id number] Social History Date Type Detail Facility [facility]: 01-30-[facility] History of tobacco use [facility]igarette Sm[facility] Start: 01-30-2014 End: 07-03-2023 Cigarettes smoked current (pack per day) - Reported 0.5 [facility] Start: 01-30-2014 Tobacco use and exposure Smoke less tobacco non-user [facility] Start: 07-03-2023 Alcohol intake Current drinke r of alcohol (finding) [facility] Start: 07-03-2023 Tobacco use panel [facility] Start: 1980 Sex Assigned At Not on file [facility] Progress note 07-03-2023 Note Date & Type Note Facility 07-03-2023 Note HNO ID: [id number] Author: CONCEPCION GOFF PA-C Service: ? Author Type: Physician Supervisor Residential Type: Progress Notes Filed: 07/03/2023 13:27 Note Text: Nevaeh Navarrete is a 42 year old female with a complaint of cough, nasal congestion, rhinorrhea, fever up to 100.5, chills x 3 days. Works at [employer]. Diarrhea today. Had one episode of vomiting 3 days ago. Denies sob or any other complaints. Home covid test negative on day 1 of symptoms. REVIEW OF SYSTEMS See HPI, otherwise unremarkable. PAST MEDICAL HISTORY Diagnosis Date Anxiety disorder Depression, major Tobacco abuse Vitamin D deficiency 11/2013 PAST SURGICAL HISTORY Procedure Laterality Date TUBAL LIGATION, 2001 FAMILY HISTORY Problem Relation Age of Onset Breast Cancer Paternal Grandmother other (dementia [Other]) Maternal Grandmother Diabetes Paternal Grandfather Social History Tobacco Use Smoking status: Every Day Packs/day: 0.50 Years: 10.00 Additional pack years: 0.00 Total pack years: 5.00 Types: Cigarettes Smokeless tobacco: Never Substance Use Topics Alcohol use: Yes Comment: rarely Drug use: No PHYSICAL EXAMINATION: Vitals: BP 164/95 Pulse 85 Temp 36.9 ?C (98.5 ?F) Wt 89.4 kg (196 lb 15.7 oz) LMP 07/21/2014 SpO2 100% BMI 32.53 kg/m? General Appearance: Well appearing, alert, in no acute distress, well-hydrated, well nourished.. Ears: External ears normal, canals clear. TMs clear Nose/Sinuses: Positive findings: mucosa erythematous and swollen. Oropharynx: Lips, mucosa, and tongue normal, teeth and gums normal, oropharynx normal. Neck: Supple, no adenopathy. Lungs: Lungs clear to auscultation. No wheezing, rhonchi, rales.. Heart: RRR without murmur, gallop, or rubs. No ectopy. ASSESSMENT: DIAGNOSIS: (R68.89) Flu-like symptoms (primary encounter diagnosis) PLAN: ASSESSMENT/PLAN: 1. Flu-like symptoms - ICD9: 780.99, ICD10: R68.89 Supportive care, follow up for new, worsening or persistent sx. Pt in agreement with the plan and verbalized understanding. - COVID AND INFLUENZA A/B AND RSV NAAT, ROUTINE Concepcion Goff PA-C [facility] History of Present illness Narrative 07-03-2023 Concepcion Goff PA-C - 07/03/2023 1:21 PM EST Note Date & Type Note Facility 07-03-2023 History of Presen t illness Narrative Nevaeh Navarrete is a 42 year old female with a complaint of cough, nasal congestion, rhinorrhea, fever up to 100.5, chills x 3 days. Works at [employer]. Diarrhea today. Had one episode of vomiting 3 days ago. Denies sob or any other complaints. Home covid test negative on day 1 of symptoms. REVIEW OF SYSTEMS See HPI, otherwise unremarkable. PAST MEDICAL HISTORY Diagnosis Date Anxiety disorder Depression, major Tobacco abuse Vitamin D deficiency 11/2013 PAST SURGICAL HISTORY Procedure Laterality Date TUBAL LIGATION, 2001 FAMILY HISTORY Problem Relation Age of Onset Breast Cancer Paternal Grandmother other (dementia [Other]) Maternal Grandmother Diabetes Paternal Grandfather Social History Tobacco Use Smoking status: Every Day Packs/day: 0.50 Years: 10.00 Additional pack years: 0.00 Total pack years: 5.00 Types: Cigarettes Smokeless tobacco: Never Substance Use Topics Alcohol use: Yes Comment: rarely Drug use: No PHYSICAL EXAMINATION: Vitals: BP 164/95 Pulse 85 Temp 36.9 C (98.5 F) Wt 89.4 kg (196 lb 15.7 oz) LMP 07/21/2014 SpO2 100% BMI 32.53 kg/m General Appearance: Well appearing, alert, in no acute distress, well-hydrated, well nourished.. Ears: External ears normal, canals clear. TMs clear Nose/Sinuses: Positive findings: mucosa erythematous and swollen. Oropharynx: Lips, mucosa, and tongue normal, teeth and gums normal, oropharynx normal. Neck: Supple, no adenopathy. Lungs: Lungs clear to auscultation. No wheezing, rhonchi, rales.. Heart: RRR without murmur, gallop, or rubs. No ectopy. ASSESSMENT: DIAGNOSIS: (R68.89) Flu-like symptoms (primary encounter diagnosis) PLAN: ASSESSMENT/PLAN: 1. Flu-like symptoms - ICD9: 780.99, ICD10: R68.89 Supportive care, follow up for new, worsening or persistent sx. Pt in agreement with the plan and verbalized understanding. - COVID & INFLUENZA A/B & RSV NAAT, ROUTINE Concepcion Goff PA-C documented in this encounter [facility] Evaluation note Note Date & Type Note Facility Evaluation note Diagnosis Flu-like symptoms- Primary Other general symptoms documented in this encounter [facility] Summary Purpose Family History No Family History Records FoundNo Family History Records FoundNo Family History Records Found Advance Directives No Advanced Directives Records FoundNo Advanced Directives Records FoundNo Advanced Directives Records Found Additional Source Comments INFORMATION SOURCE (unrecogn ized section and content) DATE CREATED AUTHOR 12/14/2017 [facility] [employer] DATE CREATED AUTHOR AUTHOR'S ORGANIZ ATION 05/22/2021 [facility] DATE CREATED AUTHOR AUTHOR'S ORGANIZ ATION 07/04/2023 [facility] Source Comments (unrecognize d section and content) In the event this informatio n is protected by the Federal Confidentiality of Alcohol and Drug Abuse Patient Records regulations: The Federal rules restrict any use of the information to criminally investigate or prosecute any alcohol or drug abuse patient.[facility] Reason for Visit (unrecogniz ed section and content) Reason Comments Viral Syndrome Symptoms started on the cough, body aches diarrhea No diarrhea this morning, headache, head congestion. Specialty Diagnoses / Procedures Referred By Contac t Referred To Contact Internal Medicine / WALK-IN CLINIC Diagnoses cough, some body aches, diarrhea onset 06/30 Procedures NEW SAME DAY Self Walk In [address] [place] [address] Referral ID Status Reason Start Date Expiration Date Visits Requested Visits Authorized [id number] Pending Review Financial Clearance Required - Self Pay 07/03/2023 10/01/2023 1 1 FOR RECORDS PERTAINING TO PATIENTS WHO ARE OR HAVE BEEN ENROLLED IN A CHEMICAL DEPENDENCY/SUBSTANCEABUSE PROGRAM, SOME INFORMATION MAY BE OMITTED. This clinical summary was aggregated from multiple sources. Caution should be exercised in using it in the provision of clinical care. This summary normalizes information from multiple sources, and as a consequence, information in this document may materially change the coding, format and clinical context of patient data. In addition, data may be omitted in some cases. CLINICAL DECISIONS SHOULD BE BASED ON THE PRIMARY CLINICAL RECORDS. [facility]. provides no warranty or guarantee of the accuracy or completeness of information in this document.
[2025-02-18 14:17] LABS: Mucous, Urine 0 SEEN /hpf (<or=2+); Red Blood Cells-Urine 0 SEEN /hpf (0-5)
[2025-02-18 14:17] LABS: Lipase 42 U/L (13-75)
[2025-02-18 14:19] LABS: AST(SGOT) 324 U/L (<=31); Alanine Aminotransfer ALT/SGPT 100 U/L (<=34); Albumin, Serum 3.7 g/dL (3.5-5.0); Alkaline Phosphatase 426 U/L (35-104); Anion Gap 15 (5-15); BUN 5 mg/dL (4-19); BUN/Creat Ratio 6.0 RATIO (10-20); Bilirubin, Direct 6.81 mg/dL (0.00-0.30); Calcium,Total 9.2 mg/dL (7.6-11.0); Carbon Dioxide 26.7 mmol/L (21.0-32.0); Chloride 92 mmol/L (98-108); Estimated Creatinine Clearance 87.26 ml/min (50-250); Globulin 4.3 g/dL (2.2-4.2); Glucose 120 mg/dL (70-99); Potassium 3.2 mmol/L (3.3-5.1)
[2025-02-18 14:20] LABS: Alcohol, Blood (Medical)-Serum < 10.1 mg/dL (<=10.0); Ammonia 49.1 umol/L (11-51)
[2025-02-18 14:21] LABS: Glucose, Dipstick Normal (Normal); Ketone-Dipstick 5 mg/dl (Negative); Leukocyte Esterase-Dipstick Negative /ul (Negative); Nitrite-Dipstick Negative (Negative); Occult Blood-Urine 150 /ul (Negative); Protein-Dipstick 100 mg/dl (Negative); Specific Gravity, Urine 1.020 (1.002-1.030)
[2025-02-18 14:22] LABS: Color, Urine SEE COMMENT BELOW (Yellow); Urine Bilirubin Dipstick 6 mg/dL (Negative)
[2025-02-18 14:32] LABS: Squamous Epithelial Cells - UA 5-10 SEEN /hpf (5-10)
[2025-02-18] MEDS: Piperacil/Tazobactam 3.375 GM in 0.9% Normal Saline (50mL MB+) 50 ML IV ×2 (15:29→21:06)
--- NOTE | 2025-02-18 15:55 | CT_ITS ---
PROCEDURE: CT ABDOMEN/PELVIS W IV CONT ONLY 02/18/2025 REASON FOR EXAM: RIGHT UPPER QUADRANT ABDOMINAL PAIN TECHNIQUE: Procedure Code: [id number] Modality: CT Procedure: ABDOMEN/PELVIS W IV CONT ONLY Coronal and Sagittal reconstruction series were provided. One or more dose reduction techniques were used (e.g., Automated exposure control, adjustment of the mA and/or kV according to patient size, use of iterative reconstruction technique. RADIATION DOSE SUMMARY: DLP: 1266.91 mGycm COMPARISON: Abdominal ultrasound same day 02/18/2025. FINDINGS: Lung bases: Clear. Liver: Hepatomegaly with severe hepatic steatosis. No focal lesion. Gallbladder: Unremarkable. No biliary ductal dilatation or pericholecystic inflammation. Spleen: Normal size and morphology. Pancreas: Unremarkable. Adrenals: Unremarkable. Kidneys: Unremarkable. No urolithiasis or hydronephrosis. Bladder: Unremarkable. Reproductive Organs: Grossly normal. Bilateral tubal ligation clips. Bowel: No evidence of bowel obstruction or active inflammatory process. Normal appendix. Diffuse submucosal fatty infiltration of the colon, likely metabolic such as with insulin resistance. Lymph nodes: No enlarged abdominopelvic lymph nodes. Vasculature: Major vascular structures are patent, normal in course and caliber. Peritoneum / Retroperitoneum: No significant ascites or free air. Bones: No significant abnormality. CT/Abdomen/Pelvis W IV Cont ONLY IMPRESSION: 1. No acute or active inflammatory intra-abdominal pathology. 2. No evidence for acute cholecystitis or pancreatitis. No biliary ductal dilat ation. 3. Hepatomegaly with severe fatty infiltration. Submucosal fat deposition throu ghout the colon presumably metabolic in nature and can be seen with insulin resistance. Reading Location: [id number]
[2025-02-18] MEDS: Potassium Chloride Oral Soln 20 MEQ/15 ML UDC 40 MEQ PO (16:38)
--- NOTE | 2025-02-18 16:51 | PCM.HP.STD ---
HPI - General General Date of Admission: 02/18/25 Date of Service: 02/18/25 Chief Complaint: Abd pain, poor PO intake HPI Narrative NEVAEH CARDENAS, is a 44-year-old female history of alcohol abuse and GERD presented to [facility] ED 02/18/2025 for dysuria and right upper quadrant abdominal pain over the past several weeks but have worsened further over the past 5 days. also states he noticed yellow discoloration of her eyes for the past week. Patient drinks a bottle of liquor every few days but does not think she is an alcoholic. Does endorse some abdominal bloating decreased p.o. intake. In the ED temp 98.2, heart rate initially 125 with a blood pressure 148/98, respiratory rate 16 pulse ox 100% on room air. CBC with white blood cell count 9.9, hemoglobin 13.8. BMP with potassium of 3.2 and a glucose of 120, INR 1.2 and lipase of 42. Liver profile did reveal a total bili of 10.3 with a direct bili 6.81, AST 324, ALT 100 and alk phos 426, alcohol level negative and ammonia 49. Lactic acid 3.3 and UA with bacteria, occult blood, 10-25 white blood cells but negative nitrite negative leuk esterase. Abdominal ultrasound somewhat limited but showed distended gallbladder with sludge with no definitive evidence of acute cholecystitis, also noted hepatomegaly with appearance of parenchyma most frequently associated with hepatic steatosis or other chronic liver diseases. ED physician contacted GI who felt that this was likely a manifestation of her alcohol abuse, recommended CT abdomen pelvis with IV contrast just to get baseline and better look at liver and to admit patient, did not think the MRCP was necessary at this time. Patient given Zosyn due to abnormal UA and significant elevation of her direct bili and total bili and hospitalist contacted for admission. Patient evaluated bedside. She reports several weeks of increasing right upper quadrant pain worsened over the past 3 to 5 days with yellowing of her eyes over the past 3 days and poor p.o. intake for a couple of weeks with nausea if she tries to eat at all, denies diarrhea and has been constipated, notes the pain in her abdomen is a pressure and is somewhat better if she just sits there but is worse if she tries to move or do any other activities so she has not been doing much in general. Does drink usually daily and will drink peach [place], bottle lasts her about 2 days. Denies any history of withdrawal seizures or DTs. Used to smoke but has subsequently quit smoking recently and now only have a cigarette occasionally. Denies cough or fever but has been having little bit of shortness of breath since she began having the abdominal pain. Dysuria has been present over the past week or 2 as well PFSH Home Medications ?Medication ?Instructions ?Recorded ?Last Taken ?Type omeprazole 20 mg tablet,delayed 20 mg PO DAILY 02/18/25 02/17/25 History release Allergy/AdvReac Type Severity Reaction Status Date / Time No Known Allergies Allergy Verified 02/18/25 12:56 Social History Smoking Status: Never smoker ROS ROS Narrative General: Denies fever/chills HENT: Denies headache, denies stuffy nose, denies sore throat EYES: Denies changes in vision Resp: Denies cough, some shortness of breath Cardiac: Denies chest pain GI: Right upper abdominal pressure, some constipation, poor p.o. with nausea if she tries to eat : Some burning on urination Extremity: Has had problems with intermittent swelling in her legs since at least last summer MSK: Feels generally weak and fatigued Neuro: Denies any numbness/tingling Heme: Denies any bleeding or bruising, does have the yellowing of sclera Skin: Denies rashes Psychiatric: No complaints voiced Vital Signs Vital Signs Vital Signs: 02/18/25 12:54 02/18/25 12:56 02/18/25 14:56 Temperature 98.2 F 98.2 F 98.6 F Temperature Source Oral Oral Oral Pulse Rate 125 H 120 H 85 Respiratory Rate 16 18 17 Blood Pressure 148/98 H 148/98 H 110/65 Blood Pressure Mean 114 114 80 Pulse Ox 100 100 100 Oxygen Delivery Method Room Air Room Air Room Air 02/18/25 16:00 02/18/25 16:19 Temperature 98.8 F 98.8 F Temperature Source Oral Pulse Rate 92 92 Respiratory Rate 16 16 Blood Pressure 115/74 115/74 Blood Pressure Mean 87 87 Pulse Ox 98 98 Oxygen Delivery Method Room Air Weight Weight: 85.531 kg Body Mass Index (BMI) 31.4 Physical Exam Narrative General: Alert, oriented HEENT: Atraumatic, normocephalic Eyes: scleral icterus, normal conjunctiva, extraocular movements grossly intact Neck: Supple Respiratory: Clear to auscultation bilaterally, normal respiratory effort Cardiovascular: Regular rate and rhythm GI: Soft, somewhat tender to palpation more in epigastric to right upper quadrant without rebound, guarding, rigidity Extremities: No significant pitting edema Musculoskeletal: Moving all extremities Neuro: No overt focal neurological deficits Skin: No rashes appreciated Psych: Cooperative Results Lab / Micro Data 02/18/25 13:48 02/18/25 13:48 Labs: Laboratory Results - last 24 hr 02/18/25 13:48: WBC 9.9, RBC 3.81 L, Hgb 13.8, Hct 38.3, MCV 100.5 H, MCH 36.2 H, MCHC 36.0, RDW Std Deviation 63.7 H, RDW Coeff of Chrissy 17.3 H, Plt Count 196, MPV 10.1, Immature Gran % (Auto) 0.500, Neut % (Auto) 83.8 H, Lymph % (Auto) 7.7 L, [place] % (Auto) 6.0, Eos % (Auto) 1.0, Baso % (Auto) 1.0, Absolute Neuts (auto) 8.3 H, Absolute Lymphs (auto) 0.76 L, Nucleated RBC % 0, PT 15.1 H, INR 1.2, Sodium 135, Potassium 3.2 L, Chloride 92 L, Carbon Dioxide 26.7, Anion Gap 15, BUN 5, Creatinine 0.87, Estim Creat Clear Calc 87.26, Est GFR (MDRD) Non-Af 84, BUN/Creatinine Ratio 6.0 L, Glucose 120 H, Lactic Acid 3.3 H*, Calcium 9.2, Total Bilirubin 10.30 H, Direct Bilirubin 6.81 H, AST 324 H, ALT 100 H, Alkaline Phosphatase 426 H, Ammonia 49.1, Total Protein 8.0, Albumin 3.7, Globulin 4.3 H, Lipase 42, Ethyl Alcohol < 10.1 02/18/25 14:11: Urine Color SEE COMMENT BELOW, Urine Clarity Turbid, Urine pH 5.0, Ur Specific [place] 1.020, Urine Protein 100 H, Urine Glucose (UA) Normal, Urine Ketones 5 H, Urine Occult Blood 150 H, Urine Nitrite Negative, Urine Bilirubin 6 H, Urine Urobilinogen 12 H, Ur Leukocyte Esterase Negative, Urine RBC 0 SEEN, Urine WBC 10-25 SEEN, Ur Squamous Epith Cells 5-10 SEEN, Urine Bacteria 3+, Urine Mucus 0 SEEN Imaging Radiology Impression Abdomen Ultrasound 02/18/25 13:20 IMPRESSION: 1. Somewhat limited exam. 2. Distended gallbladder with sludge. No biliary dilatation or definite evidence of acute cholecystitis. 3. Hepatomegaly with appearance of the parenchyma most frequently associated with hepatic steatosis or other chronic liver disease. Correlate with clinical and laboratory evaluation. 4. Additional description as above. Reading Location: [id number] Assessment & Plan Assessment/Plan (1) Elevated liver function tests: PLAN: Plan # Abnormal liver function tests -Liver profile did reveal a total bili of 10.3 with a direct bili 6.81, AST 324, ALT 100 and alk phos 426 -No previous labs available in our system - Abdominal ultrasound somewhat limited but showed distended gallbladder with sludge with no definitive evidence of acute cholecystitis, also noted hepatomegaly with appearance of parenchyma most frequently associated with hepatic steatosis or other chronic liver diseases -GI suspicious for alcoholic hepatitis given history and symptoms -Also check hepatitis panel -GI consult -Will continue Zosyn started in the ED, do feel it is reasonable at this time -IV fluids - Will start patient on transitional diet, will make her n.p.o. at midnight in the event she does need further imaging or evaluation tomorrow # Abnormal UA - There is concern patient may have UTI in the ED given her complaints of dysuria and bacteria in the urine -Patient does have some white cells but it is reported negative leuk esterase and nitrite -Does have some squamous cells -Bacteria is 3+ -Patient placed on Zosyn -Will continue for now given all of the above though lower suspicion for actual UTI, de-escalate as tolerated -Urine culture ordered and pending #Hypokalemia -Replace -Repeat in the AM # Heavy alcohol use - Will start CIWA with as needed coverage -Thiamine and folate #GERD -Continue PPI #DVT ppx: SCDs Sanam Balderrama MD Charges/Coding Visit Charges Inpatient E&M: 09786 Init Hosp L2
--- OUTSIDE RECORDS SUMMARY | 2025-02-18 17:14 | XMS RPT_ITS | CCD ---
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 12 capsule 0 11/28/2013 Active Comment on above: Take 1 capsule by mo [facility] once each week. Take 1 tablet [...] Test Name Value Interpretation Reference Range Facility Abdomen Limitedon 02-18-2025 Abdomen Limited [facility] [address] [place], [place] [address] Abdomen Limited MR#: [id number] Acct: [id number] Name: NEVAEH CARDENAS Rep #: [id number] : 1980 F 44 From: Orlando Recinos MD PCP: Care Physician,No Primary Status: REG ER Study: Abdomen Limited Date of Exam: 02/18/25 Exam# [id number] Ordering Dr: Dragan Montiel DO PROCEDURE: ABDOMEN LIMITED 02/18/2025 REASON FOR EXAM: PAIN, JAUNDICE TECHNIQUE: Procedure Code: USABDL Modality: US Procedure: ABDOMEN LIMITED COMPARISON: None FINDINGS: Exam limited by soft tissue attenuation, shadowing bowel gas, and suboptimal penetration of the echogenic liver. Liver: LEFT lobe not visible. Echogenic. 22.0 cm in length. Gallbladder: Distended without visualized stones, significant wall thickening or pericholecystic fluid. Sludge is present. Reportedly, sonographic Jj's was negative. Biliary tree: Unremarkable. CBD measures 3 mm. Pancreas: Partially obscured by shadowing bowel gas, grossly unremarkable as visualized. Right kidney: Unremarkable. 10.6 cm in length. Other: No visualized free fluid. US/Abdomen Limited IMPRESSION: 1. Somewhat limited exam. 2. Distended gallbladder with sludge. No biliary dilatation or definite evidence of acute cholecystitis. 3. Hepatomegaly with appearance of the parenchyma most frequently associated with hepatic steatosis or other chronic liver disease. Correlate with clinical and laboratory evaluation. 4. Additional description as above. Reading Location: [facility] CC: Dr. Dragan Montiel DO; No Primary Care Physician Cylinder Dyer: Signed Normal [facility] Alcohol, Blood (Medical)-Ser umon 02-18-2025 SERUM ETOH < 10.1 Normal <=10.0 [facility] Comment on above: Result Comment: This test is for medical purposes only. The legal definition of intoxication varies according to local law. Performed By: #### L 501.9100 #### [facility] [address] [place], [address] Ammoniaon 02-18-2025 Ammonia (P) [Moles/Vol] 49.1 umol/L Normal 11-51 [facility] Comment on above: Performed By: #### L 501.2450, L500.2500, L100.0100, L500.3400, L503.6005 #### [facility] [address] [place], [address] Basic Metabolic Profile (BMP )on 02-18-2025 BUN/CRE 6.0 RATIO Low 10-20 [facility] Comment on above: Performed By: #### L 501.2450, L500.2500, L100.0100, L500.3400, L503.6005 #### [facility] [address] [place], [address] Calcium [Mass/Vol] 9.2 mg/dL Normal 7.6-11.0 [facility] Comment on above: Performed By: #### L 501.2450, L500.2500, L100.0100, L500.3400, L503.6005 #### [facility] [address] [place], [address] Chloride [Moles/Vol] 92 mmol/L Low 98-108 [facility] Comment on above: Performed By: #### L 501.2450, L500.2500, L100.0100, L500.3400, L503.6005 #### [facility] [address] [place], [address] CO2 [Moles/Vol] 26.7 mmol/L Normal 21.0-32.0 [facility] Comment on above: Performed By: #### L 501.2450, L500.2500, L100.0100, L500.3400, L503.6005 #### [facility] [address] [place], [address] Creatinine [Mass/Vol] 0.87 mg/dL Normal 0.70-1.20 [facility] Comment on above: Result Comment: Icte sabiha present, Results may be affected. Performed By: #### L 501.2450, L500.2500, L100.0100, L500.3400, L503.6005 #### [facility] [address] [place], [address] ECRCL 87.26 ml/min Normal 50-250 [facility] Comment on above: Performed By: #### L 501.2450, L500.2500, L100.0100, L500.3400, L503.6005 #### [facility] [address] [place], [address] GAP 15 Normal 5-15 [facility] Comment on above: Performed By: #### L 501.2450, L500.2500, L100.0100, L500.3400, L503.6005 #### [facility] [address] [place], [address] GFR/1.73 sq M.predicted among non-blacks MDRD (S/P/Bld) [Vol rate/Area] 84 mL/min/{1.73_m2} Normal >60 [facility] Comment on above: Result Comment: mL/m in/1.73m2 CKD-EPI Creatinine Equation (2020) Performed By: #### L 501.2450, L500.2500, L100.0100, L500.3400, L503.6005 #### [facility] [address] [place], [address] Glucose [Mass/Vol] 120 mg/dL High 70-99 [facility] Comment on above: Performed By: #### L 501.2450, L500.2500, L100.0100, L500.3400, L503.6005 #### [facility] [address] [place], [address] Potassium [Moles/Vol] 3.2 mmol/L Low 3.3-5.1 [facility] Comment on above: Performed By: #### L 501.2450, L500.2500, L100.0100, L500.3400, L503.6005 #### [facility] [address] [place], [address] Sodium [Moles/Vol] 135 mmol/L Normal 133-145 [facility] Comment on above: Performed By: #### L 501.2450, L500.2500, L100.0100, L500.3400, L503.6005 #### [facility] [address] [place], [address] Urea nitrogen [Mass/Vol] 5 mg/dL Normal 4-19 [facility] Comment on above: Performed By: #### L 501.2450, L500.2500, L100.0100, L500.3400, L503.6005 #### [facility] [address] [place], [address] CBC W/Diff, Automatedon 09-0 -2024 Absolute Lymph 0.76 X10 3/uL Low 0.83-4.51 [facility] Comment on above: Performed By: #### L 501.2450, L500.2500, L100.0100, L500.3400, L503.6005 #### [facility] [address] [place], [address] Absolute Neut 8.3 X10 3/uL High 2.0-7.7 [facility] Comment on above: Performed By: #### L 501.2450, L500.2500, L100.0100, L500.3400, L503.6005 #### [facility] [address] [place], [address] Basophils/100 WBC (Bld) 1.0 % Normal 0-1 [facility] Comment on above: Performed By: #### L 501.2450, L500.2500, L100.0100, L500.3400, L503.6005 #### [facility] [address] [place], [address] Eosinophils/100 WBC (Bld) 1.0 % Normal 0-5 [facility] Comment on above: Performed By: #### L 501.2450, L500.2500, L100.0100, L500.3400, L503.6005 #### [facility] [address] [place], [address] Erythrocyte distribution width (RBC) [Ratio] 17.3 % High 11.6-14.6 [facility] Comment on above: Performed By: #### L 501.2450, L500.2500, L100.0100, L500.3400, L503.6005 #### [facility] [address] [place], [address] Hematocrit (Bld) [Volume fraction] 38.3 % Normal 37-47 [facility] Comment on above: Performed By: #### L 501.2450, L500.2500, L100.0100, L500.3400, L503.6005 #### [facility] [address] [place], [address] Hemoglobin (Bld) [Mass/Vol] 13.8 g/dL Normal 12.0-15.0 [facility] Comment on above: Performed By: #### L 501.2450, L500.2500, L100.0100, L500.3400, L503.6005 #### [facility] [address] [place], [address] IG% 0.500 Normal 0.0-0.9 [facility] Comment on above: Result Comment: IG% - Immature Granulocytes (promyelocytes, myelocytes and metamyelocytes) > 1% indicates that a LEFT SHIFT is Present. Performed By: #### L 501.2450, L500.2500, L100.0100, L500.3400, L503.6005 #### [facility] [address] [place], [address] Lymphocytes/100 WBC (Bld) 7.7 % Low 19-41 [facility] Comment on above: Performed By: #### L 501.2450, L500.2500, L100.0100, L500.3400, L503.6005 #### [facility] [address] [place], [address] MCH (RBC) [Entitic mass] 36.2 pg High 27.0-32.0 [facility] Comment on above: Performed By: #### L 501.2450, L500.2500, L100.0100, L500.3400, L503.6005 #### [facility] [address] [place], [address] MCHC (RBC) [Mass/Vol] 36.0 g/dL Normal 32-36 [facility] Comment on above: Performed By: #### L 501.2450, L500.2500, L100.0100, L500.3400, L503.6005 #### [facility] [address] [place], [address] MCV (RBC) [Entitic vol] 100.5 fL High 81-99 [facility] Comment on above: Performed By: #### L 501.2450, L500.2500, L100.0100, L500.3400, L503.6005 #### [facility] [address] [place], [address] Monocytes/100 WBC (Bld) 6.0 % Normal 0-10 [facility] Comment on above: Performed By: #### L 501.2450, L500.2500, L100.0100, L500.3400, L503.6005 #### [facility] [address] [place], [address] Neutrophils/100 WBC (Bld) 83.8 % High 47-70 [facility] Comment on above: Performed By: #### L 501.2450, L500.2500, L100.0100, L500.3400, L503.6005 #### [facility] [address] [place], [address] Nucleated RBC (Bld) [#/Vol] 0 10*3/uL Normal 0-5 [facility] Comment on above: Performed By: #### L 501.2450, L500.2500, L100.0100, L500.3400, L503.6005 #### [facility] [address] [place], [address] Platelet mean volume (Bld) [Entitic vol] 10.1 fL Normal 6.2-12.0 [facility] Comment on above: Performed By: #### L 501.2450, L500.2500, L100.0100, L500.3400, L503.6005 #### [facility] [address] [place], [address] Platelets (Bld) [#/Vol] 196 10*3/uL Normal 150-450 [facility] Comment on above: Performed By: #### L 501.2450, L500.2500, L100.0100, L500.3400, L503.6005 #### [facility] [address] [place], [address] RBC (Bld) [#/Vol] 3.81 10*6/uL Low 4.2-5.4 [facility] Comment on above: Performed By: #### L 501.2450, L500.2500, L100.0100, L500.3400, L503.6005 #### [facility] [address] [place], [address] RDW SD 63.7 fl High 35.1-43.9 [facility] Comment on above: Performed By: #### L 501.2450, L500.2500, L100.0100, L500.3400, L503.6005 #### [facility] [address] [place], [address] WBC (Bld) [#/Vol] 9.9 10*3/uL Normal 4.4-11.0 [facility] Comment on above: Performed By: #### L 501.2450, L500.2500, L100.0100, L500.3400, L503.6005 #### [facility] [address] [place], [address] Emergency Department Summary on 02-18-2025 Emergency Department Summary [facility] Medical Records Department [address] [place] [id number] Emergency Department Summary 02/18/25 MR#: [id number] Acct: [id number] Name: NEVAEH CARDENAS Rep #: [id number] : 1980 44 From: Dragan Montiel DO PCP: Care Physician,No Primary Status:REG ER Location: ED HPI HPI - Female History of Present Illness Chief Complaint: Complaint Narrative Narrative: Chief complaint and HPI: 44-year-old female with past medical history of alcohol use presents for evaluation of dysuria and right upper quadrant abdominal pain. Onset of symptoms several weeks but worsened in the last 5 days. On presentation, patient is jaundice which I brought to her and her 's attention. states he has been noticing yellowing discoloration of her eyes for the past week. She states that she drinks a bottle of liquor every few days. Does not feel that she is an alcoholic. She denies any history of daily NSAID use or hepatitis. Denies any gallbladder disease. She denies any fever, chills, shortness of breath, chest pain. Endorses abdominal bloating and decreased p.o. intake. Review of systems: See HPI Medications: As listed on the chart Allergies: As listed on the chart PFSH: Per chart Vital signs: As listed on the chart. Reviewed. Physical exam: Gen: A O x3, NAD Head: Normocephalic, atraumatic Eyes: + sclera icterus, conjunctiva clear, PERRL ENT: Mildly dry mucous membranes Neck: Trachea midline, No JVD CV: Tachycardic, regular rhythm, no murmurs, no peripheral edema Resp: Lungs CTA BL, no w/r/c GI: Abd soft, mildly distended, tender to palpation in the right upper quadrant and epigastrium, no rebound or rigidity Msc: Full ROM, no deformity Skin: Warm, dry, jaundice Neuro: Alert, oriented, grossly intact, sensation intact Psych: Cooperative, appropriate mood and affect PFS PFS Home Medications ???Medication ???Instructions ???Recorded ???Last Taken ???Type omeprazole 20 mg tablet,delayed 20 mg PO DAILY 02/18/25 02/17/25 H istory release Allergy/AdvReac Type Severity Reaction Status Date / Time No Known Allergies Allergy Verified 02/18/25 12:56 Social History Smoking Status: Never smoker EXAM Physical Exam Const Vital Signs: 02/18/25 12:54 02/18/25 12:56 02/18/25 14:56 Temperature 98.2 F 98.2 F 98.6 F Temperature Source Oral Oral Oral Pulse Rate 125 H 120 H 85 Respiratory Rate 16 18 17 Blood Pressure 148/98 H 148/98 H 110/65 Blood Pressure Mean 114 114 80 Pulse Ox 100 100 100 Oxygen Delivery Method Room Air Room Air Room Air 02/18/25 16:00 02/18/25 16:19 Temperature 98.8 F 98.8 F Temperature Source Oral Pulse Rate 92 92 Respiratory Rate 16 16 Blood Pressure 115/74 115/74 Blood Pressure Mean 87 87 Pulse Ox 98 98 Oxygen Delivery Method Room Air MDM MDM MDM Narrative Medical decision making narrative: 44-year-old female with past medical history of alcohol use presents for evaluation of dysuria and right upper quadrant abdominal pain. Onset of symptoms several weeks but worsened in the last 5 days. On presentation, patient is jaundice which I brought to her and her 's attention. states he has been noticing yellowing discoloration of her eyes for the past week. She states that she drinks a bottle of liquor every few days. Differential diagnosis includes but is not limited to choledocholithiasis, hepatitis, cirrhosis, pancreatic cancer, UTI. NS bolus, morphine, Zofran ordered. Abdominal pain workup ordered including ultrasound. CBC without leukocytosis or anemia. Platelets unremarkable. INR 1.2. CMP shows dehydration without MACIEJ. Patient has hypokalemia of 3.2. P.o. potassium ordered. Lactic acid 3.3. I suspect that lactic acid is elevated secondary to dehydration as well as UTI. Will cover broadly with Zosyn. Urine culture sent. NS bolus running. Patient has hyperbilirubinemia with a direct of 6.81, AST of 324, ALT of 100. Ammonia unremarkable. Lipase unremarkable. Abdominal ultrasound shows distended gallbladder with sludge. No biliary dilation or acute cholecystitis. Common bile duct measures 3 mm. Biliary tree unremarkable. Patient has hepatomegaly with hepatic steatosis or other chronic liver. Pancreas partially obscured by shadowing bowel gas, grossly unremarkable. At this point in time, no biliary obstruction to explain her hyperbilirubinemia. GI, Dr. Trotter was consulted and patient was discussed. Recommended CT abdomen pelvis to get a baseline of the liver. Suspect this is all alcoholic hepatitis. Alcohol level unremarkable. Ammonia level unremarkable. Dr. Trotter agrees with admission. CT abdomen pelvis ordered. I spoke with Dr. Balderrama who accepted admission. She will evaluate the patient after CT abdomen pelvis is pe (more content not included)... Normal [facility] Lactic Acidon 02-18-2025 Lactate [Moles/Vol] 3.3 mmol/L Invalid Interpretation Code 0.0-2.0 [facility] Comment on above: Order Comment: Y Result Comment: Crit ical Result(s) Called at 02/18/2025-14:20 by Donavan Christopher to Matt Watson.??Results read back by same. Performed By: #### L 501.2450, L500.2500, L100.0100, L500.3400, L503.6005 #### [facility] [address] [place], [address] Lipaseon 02-18-2025 Lipase [Catalytic activity/Vol] 42 U/L Normal 13-75 [facility] Comment on above: Result Comment: Marlon hanley note: LIPASE revised reference range effective 22. New Lipase methodology. Expected to produce lower values than the previous assay method. NEW Reference Range: 13 - 75 U/L Performed By: #### L 501.2450, L500.2500, L100.0100, L500.3400, L503.6005 #### [facility] [address] [place], [address] Liver Profileon 02-18-2025 Albumin [Mass/Vol] 3.7 g/dL Normal 3.5-5.0 [facility] Comment on above: Performed By: #### L 501.2450, L500.2500, L100.0100, L500.3400, L503.6005 #### [facility] [address] [place], [address] ALK PHOS 426 U/L High 35-104 [facility] Comment on above: Performed By: #### L 501.2450, L500.2500, L100.0100, L500.3400, L503.6005 #### [facility] [address] [place], [address] ALT [Catalytic activity/Vol] 100 U/L High <=34 [facility] Comment on above: Performed By: #### L 501.2450, L500.2500, L100.0100, L500.3400, L503.6005 #### [facility] [address] [place], [address] AST [Catalytic activity/Vol] 324 U/L High <=31 [facility] Comment on above: Performed By: #### L 501.2450, L500.2500, L100.0100, L500.3400, L503.6005 #### [facility] [address] [place], [address] Bilirubin [Mass/Vol] 10.30 mg/dL High 0.00-1.30 [facility] Comment on above: Performed By: #### L 501.2450, L500.2500, L100.0100, L500.3400, L503.6005 #### [facility] [address] [place], [address] Bilirubin.direct [Mass/Vol] 6.81 mg/dL High 0.00-0.30 [facility] Comment on above: Performed By: #### L 501.2450, L500.2500, L100.0100, L500.3400, L503.6005 #### [facility] [address] [place], [address] Globulin (S) [Mass/Vol] 4.3 g/dL High 2.2-4.2 [facility] Comment on above: Performed By: #### L 501.2450, L500.2500, L100.0100, L500.3400, L503.6005 #### [facility] [address] [place], [address] T PROT 8.0 g/dL Normal 5.9-8.4 [facility] Comment on above: Performed By: #### L 501.2450, L500.2500, L100.0100, L500.3400, L503.6005 #### [facility] [address] [place], [address] Prothrombin Time w/INRon INR Coag (PPP) [Relative time] 1.2 {INR} Normal [facility] Comment on above: Performed By: #### L 503.5510, L300.3900 #### [facility] [address] [place], [address] PT Coag (PPP) [Time] 15.1 s High 11.7-14.9 [facility] Comment on above: Performed By: #### L 503.5510, L300.3900 #### [facility] [address] [place], [address] Urinalysis, Completeon 02-18 BACTERIA 3+ /hpf Normal None Seen [facility] Comment on above: Order Comment: CLEAN CATCH Performed By: #### L 400.0001 #### [facility] [address] [place], [address] EPI,SQUAMOUS 5-10 SEEN Normal 5-10 [facility] Comment on above: Order Comment: CLEAN CATCH Performed By: #### L 400.0001 #### [facility] [address] [place], [address] WBC 10-25 SEEN Normal 0-5 [facility] Comment on above: Order Comment: CLEAN CATCH Performed By: #### L 400.0001 #### [facility] [address] [place], [address] Mucus Ql (Urine sed) 0 SEEN Normal [facility] Comment on above: Order Comment: CLEAN CATCH Performed By: #### L 400.0001 #### [facility] [address] [place], [address] RBC 0 SEEN Normal 0-5 [facility] Comment on above: Order Comment: CLEAN CATCH Performed By: #### L 400.0001 #### [facility] [address] [place], [address] [facility] NEVAEH NAVARRETE ([id number]) 1980 [facility] Date Time Provider Department 07/04/23 [facility] GOFF During your visit today, we recorded the following information about you: Leann Loco 07/04/2023 10:08 AM Signed Nevaeh is calling Concepcion Goff PA-C today to request a call to advise the lab results from the [place] walk in clinic on 07/03/2023 Please call number below which has been verified Patient has been identified by name and birthdate. Duration of symptoms: days Person calling: self Call patient at: at home [phone] (home) Was an appointment scheduled: No Closing statement: Symptom Call: Thank you for calling [facility], your call is very important. A nurse will call in approximately 2-4 hours during business hours. If this is an emergency, please contact 911. Leann Byrne [facility] Ximena Huang APRN.SOCIAL SECRETARY 07/04/2023 10:15 AM Signed Spoke to patient. [...] 11/23/2013 Depression, major (HCC) [F32.9] 11/23/2013 Dyspareunia [BRE0071] 01/23/2014 Chronic pelvic pain in female [R10.2, G89.29] 01/23/2014 Encounter Status:Closed by XIMENA HUANG on 07/04/23 Normal [facility] CNCOon 07-03-2023 CNCO Letter Text Normal [facility] CNOVon 07-03-2023 CNOV Office Visit (WALKWA ) NEVAEH NAVARRETE ([id number]) 1980 [place] Date Time Provider Department 07/03/23 1:00 PM [...] 100.5, chills x 3 days. Works at [employer]. Diarrhea today. Had one episode of vomiting [...] AND INFLUENZA A/B AND RSV NAAT, ROUTINE LI Malagon-Altagracia Referring Provider: SELF [200] Allergies As of Date: 07/03/2023 (No Known Allergies) Date Reviewed: 07/03/2023 Reviewed by: Janice Diamond MA - Fully Assessed Reason for Visit: Viral Syndrome [119] Cmt: Symptoms started on the 11 cough, body aches diarrhea No diarrhea this morning, headache, head congestion. Primary Visit Diagnosis:Flu-like symptoms [R68.89] Order(s):COVID AND INFLUENZA A/B AND RSV NAAT, ROUTINE [SQCVFLRS] Order #: [id number]. #:[id number] Prescriptions as of 07/03/2023 - buPROPion XL [...] 11/23/2013 Depression, major (HCC) [F32.9] 11/23/2013 Dyspareunia [RMZ3051] 01/23/2014 Chronic pelvic pain in female [R10.2, G89.29] 01/23/2014 Encounter Status:Closed by CONCEPCION GOFF on 07/03/23 Normal [facility] COVID AND INFLUENZA A/B AND RSV NAAT, ROUTINEon 07-03-2023 SARS-CoV-2 (COVID-19) RNA ELGIN+probe Ql (Unsp spec) COVID 19 RESULT: Not detected The method used is RT-PCR or an equivalent NAAT method. Reference Range (the expected result in uninfected individuals): Not detected INFLUENZA A PCR: Detected INFLUENZA B PCR: Not detected RSV PCR: Not detected Abnormal [facility] Comment on above: Performed By: #### C VFLRS #### [facility] CLIA [id number] [address] [place] [address] [place] Phone Msgon 05-21-2021 Phone Msg - From: Elizabeth Sheffield To: Shirin Johnson; Sent: 04/30/2021 10:56:44 EST Subject: re msg 04/16 Pt is calling back, this is the first day of her period and she was told to call to get scheduled for IUD. No available appts. [phone] From: Shirin Johnson To: Elizabeth Sheffield; Sent: 04/30/2021 11:22:14 EST Subject: RE: re msg 04/16 Is patient aware to call back next month? From: Elizabeth Sheffield To: Shirin Johnson; Sent: 04/30/2021 12:54:55 EST Subject: RE: re msg 04/16 she was under the impression that would fit her in to an appt, so I dont think she does From: Shirin Johnson To: [facility] Access to Care; Sent: 04/30/2021 13:15:44 EST Subject: FW: re msg 04/16 I LVM for patient- Please push patient through to the office Patient has not returned call. [facility] Amb Office-Progress Notes-Pr ovideron 04-19-2021 Amb Office-Progress [...] 12/08/2020 Family History Breast cancer..: Grandmother. [facility] Phone Msgon 04-16-2021 Phone Msg - From: Shirin Johnson To: [facility] Precert Pool; Sent: 04/13/2021 09:06:40 EDT Subject: PA Will you please PA the patient for the Mirena for Dr. Betancourt From: Leandra Motta ([facility] Precert Pool) To: Shirin Johnson; Sent: 04/16/2021 13:36:53 EDT Subject: RE: PA Spoke with Erika and pt is covered under [employer] for insertion/removal. No copay. Calendar year benefits. REF# [id number] From: Shirin Johnson To: [facility] Precert Pool; Sent: 04/16/2021 15:50:51 EDT Subject: RE: PA Patient made aware and advised to call on the first day of her period to get her scheduled [facility] Ambulatory Clinical Summaryo n 04-13-2021 Ambulatory Clinical [...] 08:33:00) Body Mass Index Measured: 32.62 kg/m2 (04/13/21:33:00) Weight Measured - lbs2: 195 lb (04/13/21 08:33:00) Height/Length Measured - in2: 64.96 in (04/13/21 08:33:00) Body Mass Index Measured English2: 32.49 kg/m2 (04/13/21:33:00) BSA: 2.01 m2 (04/13/21 08:33:00) Ht/Wt Measurement [...] of these heart attack warning signs, call 02-18- to get immediate medical attention! 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 Findings reviewed with patient. _ [facility] Comment on above: Order Comment: Order ed on Fin# [id number] Result Comment: Tech nologist: DM Dictated By: [...] 12/08/2020 Family History Breast cancer..: Grandmother. [facility] SURGICAL PATH REPORTon 04-03 SURGICAL PATH REPORT [facility] Department of Pathology [address] [place] [id number] Name: NEVAEH NAVARRETE : 1980 [facility]ly [facility] [id number] Number: Gender: Female Location: [facility]. Admit 40 years Attending SERENA ARREDONDO Age: Provider: Ordering SERENA ARREDONDO Provider: Consulting: Surgical Pathology Report ACCESSION: COLLECTED DATE/TIME: RECEIVED DATE/TIME: PATHOLOGIST: [id number] 03/31/2021 10:40 EDT 04/01/2021 08:31 EDT MATTEO AMATO, PILO SUÁREZ Final Diagnosis ENDOMETRIUM, BIOPSY: - STRIPS AND FRAGMENTS OF BENIGN ENDOMETRIUM OF INDETERMINATE DATE. - NEGATIVE FOR MALIGNANCY OR HYPERPLASIA. PILO FELIPE PATHOLOGIST (Electronic Signature) Date Verified 04/03/2021 Clinical Data PRE-OP DIAGNOSIS: AUB POST-OP DIAGNOSIS: Not specified PROCEDURES: SIS/endometrial biopsy SPECIMEN: Endometrial biopsy Gross Description Labeled endometrial bx. Received in formalin are multiple irregular grover feathery segments of soft tissue. The specimen is filtered and has a filtrate aggregate dimension of 0.9 x 0.5 x 0.1 cm. The specimen is entirely submitted in one cassette. 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 [facility] Phone Msgon 03-04-2021 Phone Msg - From: Jasmyne Leon RN To: Jasmyne Leon RN; Sent: 03/04/2021 10:57:29 EDT Pt notified of pap and hpv results- showed signs of BV but pt is not symptomatic [facility] THIN PREP IMAGE SEND OUTon 0 02-28-2021 THIN PREP IMAGE SEND OUT See Report [facility] Comment on above: Order Comment: Order ed on Fin# [id number] Performed By: #### C [id number] ####[facility] [id number] [place] [address] Medical Director: Kristian Arellano MD GP HPVon 02-19-2021 GP HPV Negative [facility] Comment on above: Order Comment: Order ed on Fin# [id number] Result Comment: This HPV assay is being performed via a second generation NAAT that utilizes target capture, road boss mediated amplification and dual kenetic assay technologies. Performed By: #### C [id number] #### [facility] [address] [place] [address] Cardiovascular Technician: MD Jimi Talavera Office-Progress Notes-Pr ovideron 02-17-2021 Amb Office-Progress Notes-Provider Assessment/Plan 1. Well woman exam Z01.419 2. 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 [facility] Ambulatory Clinical Summaryo n 02-17-2021 Ambulatory Clinical [...] for visit Day With Date Time Where 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 [facility] Amb Office-Progress Notes-Pr ovideron 12-12-2020 [facility] Office-Progress Notes-Provider Assessment/Plan 1. Abnormal uterine bleeding [...] and oriented x 3. Mood is normal. 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 [facility] Ambulatory Clinical Summaryo n 12-08-2020 Ambulatory Clinical [...] Capsules Oral AT BEDTIME Dysmenorrhea Pickup at [facility] Pharmacy Information [facility]: [address] [place], [place] [id number] [phone] Allergies No Known Medication Allergies Problems Historical [...] call to get immediate medical attention! [facility] Vital Signs Date Time Vital Sign Value Performing Clinician Alessandra pineda 07-03-2023 13:15-0500 Body temperature 98.49 [degF] Concepcion Goff PA-C Work Phone: [facility] 07-03-2023 13:15-0500 Body weight 89.35 kg Concepcion Goff PA-C Work Phone: [facility] 07-03-2023 13:15-0500 Diastolic blood pressure 95 mm[Hg] Concepcion Goff PA-C Work Phone: [facility] 07-03-2023 13:15-0500 Heart rate 85 /min Concepcion Goff PA-C Work Phone: [facility] 07-03-2023 13:15-0500 SaO2% (BldA) [Mass fraction] 100 % Concepcion Goff PA-C Work Phone: [facility] 07-03-2023 13:15-0500 Systolic blood pressure 164 mm[Hg] Concepcion Goff PA-C Work Phone: [facility] Encounters Encounter Date Encounter Type Care Provider Facility Start: 02-18-2025 [facility] Start: 07-03-2023 End: 07-03-2023 ambulatory Facility:[facility] Start: 07-03-2023 End: 07-03-2023 Patient encounter procedure Concepcion Goff PA-C [facility] Phone: [facility] Comment on above: Flu-like symptoms (P rimary Dx) Start: 11-19-2016 End: 11-19-2016 Emergency department patient visit KATTY ULLOA MD Facility:[facility] Plan of Treatment Date Care Activity Detail Author Start: 08-07-2024 Urine microalbumin profile DTaP,Tdap,Td Vaccine (2 - Td or Tdap) [facility] Start: 02-18-2023 Influenza vaccination Influenza Vacc ine (#1) [facility] Start: 01-23-2019 Screening for malign ant neoplasm of cervix [facility] Start: 2018 Screening for malign ant neoplasm of breast Mammogram Screening [facility] Start: 08-07-2015 Pneumococcal vaccination Pneumococcal Vaccine (2 of 2 - PCV) [facility] Start: 1996 Hepatitis C screening Hepatitis C Sc reening [facility] Start: 1996 HIV screening HIV Screening [facility] Start: 03-28-1979 Covid-19 Vaccine (#1) Covid-19 Vacci ne (#1) [facility] Start: 1978 Hepatitis B Vaccine (1 of 3 - 3-dose series) Hepatitis B Vaccine (1 of 3 - 3-dose series) [facility] COVID & INFLUENZA A/ B & RSV NAAT, ROUTINE COVID & INFLUENZA A/B & RSV NAAT, ROUTINE Microbiology Routine Flu-like symptoms Ordered: 07/03/2023 [facility] Work Phone: Comment on above: Ordered: 07/03/2023 Immunizations Immunization Date Immunization Notes Care Provider Fa dongnadine 08-07-2014 pneumococcal polysaccharide vaccine, 23 valent Concepcion Goff PA-C Work Phone: [facility] Work Phone: 08-07-2014 tetanus toxoid, redu jesús diphtheria toxoid, and acellular pertussis vaccine, adsorbed Concepcion Goff PA-C Work Phone: [facility] Work Phone: 04-09-2014 influenza, seasonal, injectable Concepcion Goff PA-C Work Phone: [facility] Work Phone: 04-09-2014 influenza virus vacc ine, unspecified formulation Concepcion Goff PA-C Work Phone: [facility] Payers Date Payer Category Payer Self-pay Unknown [id number] Unknown [id number] Social History Date Type Detail Facility [facility]: [facility] History of tobacco use Cigarette Smoker [facility] Start: 01-30-2014 End: 07-03-2023 Cigarettes smoked current (pack per day) - Reported 0.5 [facility] Start: 01-30-2014 Tobacco use and exposure Smoke less tobacco non-user [facility] Start: 07-03-2023 Alcohol intake Current drinke r of alcohol (finding) [facility] Start: 07-03-2023 Tobacco use panel [facility] Start: 1980 Sex Assigned At [facility] 07-03-2023 Note Date & Type Note Facility 07-03-2023 Note HNO ID: [id number] Author: CONCEPCION GOFF PA-C Service: ? Author Type: Physician Tray Filler Type: Progress Notes Filed: 07/03/2023 13:27 Note Text: Nevaeh Navarrete is a 42 year old female with a complaint of cough, nasal congestion, rhinorrhea, fever up to 100.5, chills x 3 days. Works at [employer]. Diarrhea today. Had one episode of vomiting [...] AND RSV NAAT, ROUTINE Concepcion Goff PA-C [facility] History of Present illness Narrative 07-03-2023 Concepcion Goff PA-C - 07/03/2023 1:21 PM EST Note Date & Type Note Facility 07-03-2023 History of Presen t illness Narrative Nevaeh Navarrete is a 42 year old female with a complaint of cough, nasal congestion, rhinorrhea, fever up to 100.5, chills x 3 days. Works at long [employer]. Diarrhea today. Had one episode of vomiting [...] Concepcion Goff PA-C documented in this encounter [facility] Evaluation note Note Date & Type Note Facility Evaluation note Diagnosis Flu-like symptoms- Primary Other general symptoms documented in this encounter [facility] Summary Purpose Family History No Family History Records FoundNo Family History Records FoundNo Family History Records FoundNo Family History Records Found Advance Directives No Advanced Directives Records FoundNo Advanced Directives Records FoundNo Advanced Directives Records FoundNo Advanced Directives Records Found Additional Source Comments INFORMATION SOURCE (unrecogn ized section and content) DATE CREATED AUTHOR 12/14/2017 [facility] DATE CREATED AUTHOR AUTHOR'S ORGANIZ ATION 05/22/2021 [facility] DATE CREATED AUTHOR AUTHOR'S ORGANIZ ATION 07/04/2023 [facility] DATE CREATED AUTHOR AUTHOR'S ORGANIZ ATION 02/18/2025 [facility] Source Comments (unrecognize d section and content) In the event this informatio n is protected by the Federal Confidentiality of Alcohol and Drug Abuse Patient Records regulations: The Federal rules restrict any use of the information to criminally investigate or prosecute any alcohol or drug abuse patient.[facility] Reason for Visit (unrecogniz ed section and content) Reason Comments Viral Syndrome Symptoms started on the 11 cough, body aches diarrhea No diarrhea this morning, headache, head congestion. Specialty Diagnoses / Procedures Referred By Sidra tee Referred To Contact Internal Medicine / WALK-IN CLINIC Diagnoses cough, some body aches, diarrhea onset 06/30 Procedures NEW SAME DAY Self Walk In [place] [place] [address] Referral ID Status Reason Start Date Expiration Date Visits Requested Visits Authorized [id number] Pending Review Financial Clearance Required - Self [...] BE BASED ON THE PRIMARY CLINICAL RECORDS. [facility]. provides no warranty or guarantee of the accuracy or completeness of information in this document.
[2025-02-18 17:55] LABS: Reflex Lactate? Y
[2025-02-18] MEDS: 0.9% Normal Saline (1000mL) 1,000 ML 75 ML IV (18:03)
[2025-02-19 00:34] VITALS: BP 124/82; PULSE 95; RESP 15; TEMP 36.6; O2SAT 97
[2025-02-19 01:22] VITALS: BP 124/82; PULSE 95; RESP 15; TEMP 36.6; O2SAT 97
[2025-02-19 05:00] VITALS: BP 122/79; PULSE 89; RESP 15; TEMP 36.7; O2SAT 100
[2025-02-19 05:36] VITALS: BP 122/79; PULSE 89; RESP 15; TEMP 36.7; O2SAT 100
[2025-02-19] MEDS: Piperacil/Tazobactam 3.375 GM in 0.9% Normal Saline (50mL MB+) 50 ML IV (06:19)
[2025-02-19 06:21] LABS: Hematocrit 30.6 % (37-47); Hemoglobin 11.0 g/dL (12.0-15.0); Immature Granulocytes Count 0.050 X10^3/uL (0.0-0.0); Mean Corp Hgb Conc 35.9 g/dL (32-36); Mean Corpuscular Volume 101.7 fL (81-99); Mean Platelet Vol. 10.6 fl (6.2-12.0); NRBC Flagged by Analyzer 0 % (0-5); Platelet Count 170 K/mm3 (150-450); RBC Distribution Width CV 17.5 % (11.6-14.6); RBC Distribution Width SD 64.0 fl (35.1-43.9); Red Blood Count 3.01 M/mm3 (4.2-5.4); White Blood Count 7.3 K/mm3 (4.4-11.0)
[2025-02-19 06:37] LABS: Prothrombin Time (Protime)PT. 15.7 SECONDS (11.7-14.9)
[2025-02-19 06:52] LABS: Magnesium 1.6 mg/dL (1.5-2.2)
[2025-02-19 06:54] LABS: AST(SGOT) 230 U/L (<=31); Alanine Aminotransfer ALT/SGPT 71 U/L (<=34); Albumin, Serum 3.0 g/dL (3.5-5.0); Alkaline Phosphatase 308 U/L (35-104); Anion Gap 12 (5-15); BUN 5 mg/dL (4-19); BUN/Creat Ratio 6.7 RATIO (10-20); Calcium,Total 7.9 mg/dL (7.6-11.0); Carbon Dioxide 23.9 mmol/L (21.0-32.0); Chloride 99 mmol/L (98-108); Estimated Creatinine Clearance 103.16 ml/min (50-250); Globulin 3.1 g/dL (2.2-4.2); Glucose 81 mg/dL (70-99); Potassium 3.5 mmol/L (3.3-5.1)
[2025-02-19] MEDS: 0.9% Normal Saline (1000mL) 1,000 ML 75 ML IV (08:28)
[2025-02-19] MEDS: Thiamine Hydrochloride 100 MG Tablet PO (08:28)
[2025-02-19 09:34] VITALS: BP 113/76; PULSE 91; RESP 18; TEMP 36.4; O2SAT 97
--- NOTE | 2025-02-19 11:26 | CASEMGMT ---
Dx: ABD pain, elevated LFTS and bili LACE: 1 6-Clicks:24 Medical record reviewed and patient evaluated for identification of discharge planning needs. Based on this review, at this time criteria are not present to indicate a need for discharge planning. Will remain available to assist with discharge planning needs as identified or requested.
--- NOTE | 2025-02-19 12:09 | CASEMGMT ---
Social Work- SW met with pt to discuss self-pay status. Pt completed HCPA with [employer] rep Debra. Pt provided [facility]CP list, [facility], and [facility] list, as well as [facility]. Pt reports no additional needs at this time. NIKHIL Christiansen
[2025-02-19 14:00] VITALS: BP 118/81; PULSE 80; RESP 18; TEMP 36.3; O2SAT 96
--- NOTE | 2025-02-19 14:12 | DCINST_ITS ---
Discharge Instructions DC O2, CPAP, BIPAP needs Home O2 Discharge instructions: No Dressing / Incision Discharge Activity: Return to Normal Activity Weight Bearing Status: Full weight bearing Follow Up Care Test Results: Test results from this visit will be discussed in further detail at your follow- up appointment, if applicable. Discharge Plan Admission Admit Date/Time: 02/18/25 16:51 Primary Reason for Your Visit: alcohol induced hepatitis Attending Provider: Orlando Ordoñez Primary Care Provider: Care Physician,No Primary Consulting Providers: Anselmo Guan; Josh Trotter; Yola Galo; Radha Sands; Gena Josue; Sanam Balderrama Instructions Additional Instructions / Restrictions: Avoid alcohol intake Discharge Orders/Prescriptions Prescriptions: New prednisone 20 mg tablet 20 mg PO BID Qty: 60 1RF Rx Instructions: begin tonite Continued omeprazole 20 mg tablet,delayed release (DR/EC) 20 mg PO DAILY Referrals / Follow Up: Josh Trotter DO [Med Staff - Active Staff] - See Referral Note (office will call you to schedule the appointment, call by this Tuesday if you don't hear from the office) Fadi Lawrence MD [STAFF PHYSICIAN] - In 1 Week (Have him recheck your liver enzymes) Care Physician,No Primary [Primary Care Provider] - Disposition Disposition (needs filled in before D/C Order can be placed): Home, Self Care
--- NOTE | 2025-02-19 14:23 | PCM.DC.SUM ---
Providers Date of Admission: 02/18/25 Date of Discharge: 02/19/25 Primary Care Physician: Addie Primary Care Phys Consultations 02/18/25 17:39 Consult: Gastroenterology Routine Consulting Provider: Syed Gastroenteragustin Reason for Consult: elevated bili and LFTs EMERGENT Consult: No MD Notified: Yes Date Notified: 02/18/25 Time Notified: 17:02 Method of Notification: ED Physician Initiated Reason For Visit: ABD PAIN, ELEVATED LFTS AND BILI Diagnosis Discharge Diagnosis (1) Elevated liver function tests: Status: Acute Code(s): R79.89 - Other specified abnormal findings of blood chemistry Plan 1. Alcoholic hepatitis #2 GERD Medications at Discharge Home Medications omeprazole 20 mg tablet,delayed release 20 mg PO DAILY 02/18/25 prednisone 20 mg tablet 20 mg PO BID #60 tabs 02/19/25 Hospital Course Operations None Procedures None Summary of Care Provided Minutes Spent on Discharge: 30 Hospital Course: This 44-year-old white female was seen in the emergency room at [facility] for evaluation of dysuria and right upper quadrant abdominal pain. She had also noted a discoloration of her skin over the past several days. Patient admitted to a daily intake of alcohol. Lab work obtained revealed normal CBC, patient's chemistry was abnormal for a bilirubin of 10.3, alkaline phosphatase of 426, AST of 324 and an ALT of 100. Patient's lactic acid was elevated at 3.3, her lipase was normal. CT of the abdomen pelvis showed no evidence for cholecystitis or pancreatitis, there was hepatomegaly with severe fatty liver infiltration, there was no acute or active inflammatory intra-abdominal pathology. Patient's urine showed +3 bacteria but it was not a good specimen as it had 5-10 squamous cells present, there were 10-25 WBCs seen. Patient was admitted to [place] [address], she was seen in consultation by gastroenterology felt that the patient had alcoholic hepatitis. Patient's urine culture came back showing low numbers of alphahemolytic organism she was not felt to have a UTI. On 02/19/2025, patient was seen and examined: On examination she appeared in good health and spirits, she does not appear to be in any distress. Vital signs as documented. Skin warm and dry and without overt rashes. Patient appeared jaundiced. Neck without JVD, thyroid appears normal, trachea is midline, neck is supple. Lungs clear, normal air movement was noted. Heart exam notable for regular rhythm, normal sounds and absence of murmurs, rubs or gallops. Abdomen unremarkable and without evidence of organomegaly, masses, or abdominal aortic enlargement, bowel sounds are present in all 4 quadrants, no abdominal tenderness was noted. Extremities nonedematous, no cyanosis was noted, no clubbing was noted. Neuro: Cranial nerves II through XII are grossly intact, no focal motor deficits were noted, sensation to light touch and pinprick is intact, motor exam 5/5 throughout. Psych: Patient is alert and oriented x3, she does not appear anxious or depressed, she does not appear agitated. On 02/19/2025, patient was seen and examined and felt to be in stable condition for discharge home. Weight / BMI Weight Weight: 93.44 kg Body Mass Index (BMI) 34.2 ABG / Lab / Microbiology Data 02/19/25 05:15 02/19/25 05:15 Laboratory: Laboratory Results - last 24 hr 02/18/25 14:11: Urine RBC 0 SEEN, Urine WBC 10-25 SEEN, Ur Squamous Epith Cells 5-10 SEEN, Urine Bacteria 3+, Urine Mucus 0 SEEN 02/18/25 18:12: Lactic Acid 3.9 H* 02/19/25 05:15: WBC 7.3, RBC 3.01 L, Hgb 11.0 L, Hct 30.6 L, MCV 101.7 H, MCH 36.5 H, MCHC 35.9, RDW Std Deviation 64.0 H, RDW Coeff of Chrissy 17.5 H, Plt Count 170, MPV 10.6, Immature Gran % (Auto) 0.700, Neut % (Auto) 80.2 H, Lymph % (Auto) 9.3 L, Emmet % (Auto) 6.5, Eos % (Auto) 2.5, Baso % (Auto) 0.8, Absolute Neuts (auto) 5.9, Absolute Lymphs (auto) 0.68 L, Nucleated RBC % 0, PT 15.7 H, INR 1.2, Sodium 135, Potassium 3.5, Chloride 99, Carbon Dioxide 23.9, Anion Gap 12, BUN 5, Creatinine 0.77, Estim Creat Clear Calc 103.16, Est GFR (MDRD) Non-Af 96, BUN/Creatinine Ratio 6.7 L, Glucose 81, Calcium 7.9, Magnesium 1.6, Total Bilirubin 10.30 H, AST 230 H, ALT 71 H, Alkaline Phosphatase 308 H, Total Protein 6.1, Albumin 3.0 L, Globulin 3.1, Albumin/Globulin Ratio 1.0, TSH 7.250 H Microbiology: Microbiology 02/18/25 14:11 Urine, Clean Catch Urine Culture - Final Alpha hemolytic organism Radiography Diagnostic Testing: Radiology Impression Abdomen Ultrasound 02/18/25 13:20 IMPRESSION: 1. Somewhat limited exam. 2. Distended gallbladder with sludge. No biliary dilatation or definite evidence of acute cholecystitis. 3. Hepatomegaly with appearance of the parenchyma most frequently associated with hepatic steatosis or other chronic liver disease. Correlate with clinical and laboratory evaluation. 4. Additional description as above. Reading Location: [facility] Abdomen/Pelvis CT 02/18/25 15:55 IMPRESSION: 1. No acute or active inflammatory intra-abdominal pathology. 2. No evidence for acute cholecystitis or pancreatitis. No biliary ductal dilatation. 3. Hepatomegaly with severe fatty infiltration. Submucosal fat deposition throughout the colon presumably metabolic in nature and can be seen with insulin resistance. Reading Location: [facility] D/C Instructions Weight Bearing Status: Full weight bearing DC O2, CPAP, BIPAP Needs Home O2 Discharge instructions: No Meaningful Use Info Meaningful Use Meaningful Use Diagnoses (Choose all that apply): None applicable Discharge Plan Admission Admit Date/Time: 02/18/25 16:51 Primary Reason for Your Visit: alcohol induced hepatitis Attending Provider: Orlando Ordoñez Primary Care Provider: Care Physician,No Primary Consulting Providers: Anselmo Guan; Josh Trotter; Yola Galo; Radha Sands; Gena Josue; Sanam Balderrama Instructions Additional Instructions / Restrictions: Avoid alcohol intake Discharge Orders/Prescriptions Prescriptions: New prednisone 20 mg tablet 20 mg PO BID Qty: 60 1RF Rx Instructions: begin tonite Continued omeprazole 20 mg tablet,delayed release (DR/EC) 20 mg PO DAILY Referrals / Follow Up: Josh Trotter DO [Med Staff - Active Staff] - See Referral Note (office will call you to schedule the appointment, call by this Tuesday if you don't hear from the office) Fadi Lawrence MD [STAFF PHYSICIAN] - In 1 Week (Have him recheck your liver enzymes) Care Physician,No Primary [Primary Care Provider] - Disposition Disposition (needs filled in before D/C Order can be placed): Home, Self Care Charges/Coding Visit Charges Inpatient E&M: 03538 Disch Hosp
--- NOTE | 2025-02-19 17:39 | CON.PCM.GI_ITS ---
HPI Consult Data Date of Consult: 02/19/25 HPI Narrative Reason for Consultation: Jaundice HPI Narrative: NEVAEH CARDENAS, is a 44 F who presents to the ER with abdominal and jaundice. She has a history of heavy, chronic alcohol consumption presents with a rapid onset of worsening jaundice over the past two weeks. Associated symptoms include anorexia, fatigue, weakness, nausea, and occasional vomiting. 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 Her abdomen has become more distended recently, with associated tenderness. The patient has been drinking heavily for several years but reports abstaining in the days leading up to admission. She denies any hematemesis or coffee-ground emesis.she complains of fever, malaise, fatigue, anorexia, and weight loss. She also complains of new onset jaundice along with right upper quadrant abdominal pain and tenderness, abdominal distension, nausea, vomiting, dark urine, and light stools. She denies any episodes of confusion, altered mental status and seizures. She does admit to?proximal muscle weakness is noted. She patient reports heavy, long-standing alcohol use. Details of average daily consumption should be documented. She lives alone and reports recent stressors. There is no history of IV drug use or other risk factors for viral hepatitis at this time. Her white blood cell count is normal. However her liver enzymes and liver function tests are extremely elevated with a bilirubin of 10.6, AST of 400 and ALT at 150. INR is 1.2. Her BUN is 20 and creatinine is 1.0 US/Abdomen Limited IMPRESSION: 1. Somewhat limited exam. 2. Distended gallbladder with sludge. No biliary dilatation or definite evidence of acute cholecystitis. 3. Hepatomegaly with appearance of the parenchyma most frequently associated with hepatic steatosis or other chronic liver disease. Correlate with clinical and laboratory evaluation. CT/Abdomen/Pelvis W IV Cont ONLY IMPRESSION: 1. No acute or active inflammatory intra-abdominal pathology. 2. No evidence for acute cholecystitis or pancreatitis. No biliary ductal dilatation. 3. Hepatomegaly with severe fatty infiltration. Submucosal fat deposition throughout the colon presumably metabolic in nature and can be seen with insulin resistance. PFSH Medical History Alcohol abuse Depression Anxiety GERD (gastroesophageal reflux disease) Former smoker Home Medications ?Medication ?Instructions ?Recorded ?Last Taken ?Type omeprazole 20 mg tablet,delayed 20 mg PO DAILY 5 02/17/25 History release prednisone 20 mg tablet 20 mg PO BID #60 tabs Unknown Rx Allergy/AdvReac Type Severity Reaction Status Date / Time No Known Allergies Allergy Verified 02/18/25 12:56 Social History Smoking Status: Former smoker ROS Constitutional Constitutional: Denies fatigue, fever(s), poor appetite, weight gain or weight loss Gastrointestinal Gastrointestinal: Denies belching, bloating, change in bowel habits, change in stool character, chewing difficulty, coffee ground emesis, constipation, cramping, diarrhea, dyspepsia, dysphagia, early satiety, excessive flatus, fecal incontinence, heartburn, hematemesis, hematochezia, hemorrhoids, loose stools, melena, nausea, odynophagia, rectal bleeding, tenesmus, vomiting or weight changes Physical Exam Narrative General: Alert, oriented HEENT: Atraumatic, normocephalic Eyes: scleral icterus, normal conjunctiva, extraocular movements grossly intact Neck: Supple Respiratory: Clear to auscultation bilaterally, normal respiratory effort Cardiovascular: Regular rate and rhythm GI: Soft, somewhat tender to palpation more in epigastric to right upper quadrant without rebound, guarding, rigidity Extremities: No significant pitting edema Musculoskeletal: Moving all extremities Neuro: No overt focal neurological deficits Skin: No rashes appreciated Psych: Cooperative Const alert, oriented x3, no apparent distress and healthy appearing General Appearance: cooperative GI normal to inspection, nondistended, normoactive bowel sounds, soft to palpation, non-tender and non-distended Percussion: normal to percussion Rectal Exam: deferred Lab / Micro Data 02/19/25 05:15 02/19/25 05:15 Labs: Laboratory Results - last 24 hr 02/18/25 18:12: Lactic Acid 3.9 H* 02/19/25 05:15: WBC 7.3, RBC 3.01 L, Hgb 11.0 L, Hct 30.6 L, MCV 101.7 H, MCH 36.5 H, MCHC 35.9, RDW Std Deviation 64.0 H, RDW Coeff of Chrissy 17.5 H, Plt Count 170, MPV 10.6, Immature Gran % (Auto) 0.700, Neut % (Auto) 80.2 H, Lymph % (Auto) 9.3 L, Carson % (Auto) 6.5, Eos % (Auto) 2.5, Baso % (Auto) 0.8, Absolute Neuts (auto) 5.9, Absolute Lymphs (auto) 0.68 L, Nucleated RBC % 0, PT 15.7 H, INR 1.2, Sodium 135, Potassium 3.5, Chloride 99, Carbon Dioxide 23.9, Anion Gap 12, BUN 5, Creatinine 0.77, Estim Creat Clear Calc 103.16, Est GFR (MDRD) Non-Af 96, BUN/Creatinine Ratio 6.7 L, Glucose 81, Calcium 7.9, Magnesium 1.6, Total Bilirubin 10.30 H, AST 230 H, ALT 71 H, Alkaline Phosphatase 308 H, Total Protein 6.1, Albumin 3.0 L, Globulin 3.1, Albumin/Globulin Ratio 1.0, TSH 7.250 H Assessment & Plan Assessment/Plan (1) Elevated liver function tests: (2) Alcoholic hepatitis: (3) Hepatomegaly: PLAN: Severe Alcoholic Hepatitis: The diagnosis is clinical, supported by the patient's history of heavy alcohol use, acute onset of jaundice, and characteristic laboratory findings (AST:ALT > 2 1 is greater than 2 colon 1, hyperbilirubinemia, and coagulopathy). Prognostic scores, such as the Maddrey Discriminant Function (MDF) or MELD score, should be calculated to confirm severity. A high MDF ( > 32 is greater than 32) indicates severe disease and increased short-term mortality. Complications: * Hepatic Encephalopathy: Indicated by altered mental status and asterixis. * Ascites: Clinically evident abdominal distention and physical exam findings. * Portal Hypertension: Suggested by the presence of ascites and splenomegaly. * Malnutrition: Evidenced by anorexia, weakness, and hypokalemia. * Coagulopathy: Reflected by the elevated INR. Differential Diagnoses: Viral hepatitis, autoimmune hepatitis, drug-induced liver injury (including acetaminophen toxicity), and biliary obstruction should be considered and ruled out. P: Plan Inpatient Management: * Monitoring: Continuous monitoring of vital signs, fluid balance, and mental status. * Abstinence: Strict alcohol cessation is the cornerstone of treatment. * Supportive Care: * Nutrition: Intensive nutritional support is crucial, as many patients are malnourished. Enteral feeding should be considered if necessary. * Fluids and Electrolytes: Address electrolyte abnormalities, particularly hypokalemia and hypomagnesemia. Provide IV hydration as indicated. * Infection: Screen for infections (pneumonia, urinary tract infections, spontaneous bacterial peritonitis) with labs and imaging. Administer empiric antibiotics if infection is suspected. * Pharmacotherapy: * Corticosteroids: Initiate corticosteroids (e.g., prednisone) based on a high MDF score (>32is greater than 32), assuming no contraindications (such as active infection). Response to steroids will be assessed at day 7 using the Lille score. * Alcohol Withdrawal: Monitor, prevent, and treat symptoms of alcohol withdrawal with benzodiazepines, like lorazepam or chlordiazepoxide, using a symptom-triggered protocol. * Encephalopathy: Start lactulose to reduce ammonia levels and improve mental status. * Consultations: * Gastroenterology/Hepatology: For management guidance and consideration of liver biopsy or liver transplant evaluation. * Nutrition: For ongoing nutritional assessment and support. * Social Work: To help with patient support and placement. * Substance Abuse Counseling: For long-term alcohol abstinence strategies, including potential referral to rehab or AA. * Prognosis and Goals of Care: The patient and family should be counseled on the high short-term mortality associated with severe alcoholic hepatitis and the importance of complete, lifelong alcohol abstinence. Goals of care should be discussed early in the hospital course. This is for informational purposes only. For medical advice or diagnosis, consult a professional. AI responses may include mistakes. Learn more https://support.[employer].com/websearch?p=aimode Creating a public link... Can?t create link. Try again later. Thank you Your feedback helps [employer] improve. See our Privacy Policy https://policies.google.com/privacy?hl=en . Share more feedbackReport a problemClose
[2025-02-20 05:07] LABS: HEPATITIS B SURFACE AG Negative (Negative); Hep C Antibodies Non Reactive (Non Reactive)
== END 2025-02-19 15:09 | disposition home or self-care (01) | DRG 434 ==
LOC: ED 14:05 → MS3 17:12
PROVIDERS: Admitting Provider Internal Medicine; Emergency Provider Surgery; Visit Provider Internal Medicine
DX: K70.10 Alcoholic hepatitis without ascites (principal); E87.6 Hypokalemia; F10.10 Alcohol abuse, uncomplicated; K21.9 Gastro-esophageal reflux disease without esophagitis; Y90.0 Blood alcohol level of less than 20 mg/100 ml; Z79.899 Other long term (current) drug therapy; Z87.891 Personal history of nicotine dependence
CPT/HCPCS: 36415; 74177; 76705; 80048; 80053; 80074; 80076; 81001; 82077; 82140; 83605; 83690; 83735; 84443; 85025; 85610; 87086; 87088; 93005; 99285; P9612; Q9967; A4216; J2405

== ENCOUNTER → 2025-02-28 | Outpatient (CLI) | payer SELFPAY ==
[2025-02-28 12:11] LABS: Hematocrit 35.3 % (37-47); Hemoglobin 12.2 g/dL (12.0-15.0); Immature Granulocytes Count 0.300 X10^3/uL (0.0-0.0); Mean Corp Hgb Conc 34.6 g/dL (32-36); Mean Corpuscular Volume 104.4 fL (81-99); Mean Platelet Vol. 10.9 fl (6.2-12.0); NRBC Flagged by Analyzer 0 % (0-5); POSITIVE MORPHOLOGY YES; Platelet Count 295 K/mm3 (150-450); RBC Distribution Width CV 17.5 % (11.6-14.6); RBC Distribution Width SD 67.1 fl (35.1-43.9); Red Blood Count 3.38 M/mm3 (4.2-5.4); White Blood Count 18.5 K/mm3 (4.4-11.0)
[2025-02-28 12:14] LABS: Differential Indicated SCAN CRITERIA MET
[2025-02-28 12:18] LABS: Prothrombin Time (Protime)PT. 15.0 SECONDS (11.7-14.9)
[2025-02-28 12:47] LABS: AST(SGOT) 286 U/L (<=31); Alanine Aminotransfer ALT/SGPT 200 U/L (<=34); Albumin, Serum 3.7 g/dL (3.5-5.0); Alkaline Phosphatase 280 U/L (35-104); Anion Gap 12 (5-15); BUN 19 mg/dL (4-19); BUN/Creat Ratio 23.9 RATIO (10-20); Bilirubin, Direct 3.46 mg/dL (0.00-0.30); Calcium,Total 9.5 mg/dL (7.6-11.0); Carbon Dioxide 26.5 mmol/L (21.0-32.0); Chloride 100 mmol/L (98-108); Globulin 3.3 g/dL (2.2-4.2); Glucose 94 mg/dL (70-99); Potassium 4.7 mmol/L (3.3-5.1)
== END | disposition home or self-care (01) ==
PROVIDERS: Referring Provider Nurse Practitioner Acute Care; Visit Provider Nurse Practitioner Acute Care
DX: R16.0 Hepatomegaly, not elsewhere classified (principal); K70.10 Alcoholic hepatitis without ascites
CPT/HCPCS: 36415; 80048; 80076; 85025; 85610; 86706

== ENCOUNTER 2025-03-05 08:47 | Outpatient (CLI) | payer SELFPAY ==
--- NOTE | 2025-03-05 08:51 | US_ITS ---
PROCEDURE: ABDOMEN LIMITED 03/05/2025 REASON FOR EXAM: ASCITES TECHNIQUE: Procedure Code: USABDL Modality: US Procedure: ABDOMEN LIMITED. The 4 quadrants were assessed for possible ascites. COMPARISON: None FINDINGS: No ascites seen. US/Abdomen Limited IMPRESSION: No ascites seen. Reading Location: [place] [id number]
== END 2025-03-05 23:59 | disposition home or self-care (01) ==
LOC: US 08:49 → MEDOUTP 08:53
PROVIDERS: Referring Provider Nurse Practitioner Acute Care; Visit Provider Nurse Practitioner Acute Care
DX: K70.31 Alcoholic cirrhosis of liver with ascites (principal)
CPT/HCPCS: 49083; 76705

== ENCOUNTER → 2025-03-07 | Outpatient (CLI) | payer SELFPAY ==
[2025-03-07 15:06] LABS: Hematocrit 34.8 % (37-47); Hemoglobin 11.7 g/dL (12.0-15.0); Immature Granulocytes Count 0.260 X10^3/uL (0.0-0.0); Mean Corp Hgb Conc 33.6 g/dL (32-36); Mean Corpuscular Volume 106.4 fL (81-99); Mean Platelet Vol. 11.1 fl (6.2-12.0); NRBC Flagged by Analyzer 0 % (0-5); POSITIVE DIFFERENTIAL YES; Platelet Count 246 K/mm3 (150-450); RBC Distribution Width CV 15.0 % (11.6-14.6); RBC Distribution Width SD 58.9 fl (35.1-43.9); Red Blood Count 3.27 M/mm3 (4.2-5.4); White Blood Count 20.0 K/mm3 (4.4-11.0)
[2025-03-07 15:41] LABS: AST(SGOT) 321 U/L (<=31); Alanine Aminotransfer ALT/SGPT 349 U/L (<=34); Albumin, Serum 3.9 g/dL (3.5-5.0); Alkaline Phosphatase 229 U/L (35-104); Anion Gap 15 (5-15); BUN 25 mg/dL (4-19); BUN/Creat Ratio 28.6 RATIO (10-20); Bilirubin, Direct 2.41 mg/dL (0.00-0.30); Calcium,Total 9.7 mg/dL (7.6-11.0); Carbon Dioxide 22.1 mmol/L (21.0-32.0); Chloride 101 mmol/L (98-108); Globulin 3.3 g/dL (2.2-4.2); Glucose 129 mg/dL (70-99); Potassium 4.3 mmol/L (3.3-5.1)
--- OUTSIDE RECORDS SUMMARY | 2025-03-07 18:36 | XMS RPT_ITS | CCD ---
Author Organization [facility] Care Team Providers Care Coal Shoveler Name Role Phone KATTY ULLOA MD Unavailable Unavailabl KATTY Sr MD Unavailable Unavailabl e NO REFERRING DR Unavailable Unavailable Unavailable Primary Care Provider Unavailleonor e Dr. Dragan Montiel DO Emergency Provider Care Physician, No Primary Primary Care Provider Unavailable Tacos AMATO, Dr. Marion Admit Provider Dr. Sanam Balderrama MD Attending Provider Dr. Sanam Balderrama MD Other Provider Dr. Anselmo Guan MD Other Provider Dr. Josh Trotter DO Other Provider [phone] Iraj BRAGA-CYola Other Provider Wicho PRODUCT DEVELOPMENT COORDINATOR-CRadha Other Provider Gena Irvin Other Provider Dr. Orlando Ordoñez DO Attending Provider Dr. Orlando Ordoñez DO Other Provider Dr. Josh Trotter DO Attending Provider Care Physician, No Primary Referring Provider Un available Wicho GREGORIOCRadha Attending Provider [place]o PRODUCT DEVELOPMENT COORDINATOR-CRadha Referring Provider Radha Sands Attending Unavailable Care Physician, No Primary Primary Care Unava ilable Radha Sands Referring Unavailable Care Physician, No Primary Primary Care Unava ilable Sanam Balderrama Admitting Unavailable Orlando Ordoñez Attending Unavailable Anselmo Guan Consulting Unavailable Friend, Josh Consulting Unavailable Iraj, Yola Consulting Unavailable Radha Sands Consulting Unavailable Gena Josue Consulting Unavailable Sanam Balderrama Consulting Unavailable Care Physician, No Primary Primary Care Unava ilable Sanam Balderrama Attending Unavailable Friend, Josh Attending Unavailable Roge, Anselmo Consulting Unavailable Balderrama, Sanam Admitting Unavailable Friend, Josh Consulting Unavailable Yola Galo Consulting Unavailable Radha Sands Consulting Unavailable iLat, Gena Consulting Unavailable Sanam Balderrama Consulting Unavailable Orlando Ordoñez Consulting Unavailable Orlando Ordoñez Attending Unavailable Radha Sands Attending Unavailable Care Physician, No Primary Referring Unava ilable Care Physician, No Primary Primary Care Unava ilable Radha Sands Referring Unavailable Radha Sands Attending Unavailable Care Physician, No Primary Primary Care Unava ilable Radha Sands Referring Unavailable Radha Sands Attending Unavailable Care Physician, No Primary Primary Care Unava ilable Medications Current Medications Medication Drug Class(es) Dates Sig (Normalized) Sig (Original) furosemide 40 mg oral tablet (1 source) Loop Diuretic Start: 02-28-2025 take 1 tablet by mouth once daily in the morning Furosemide (Lasix) 40 mg tablet Active 40 mg PO EVERY MORNING 30 February 28, 2025 12:00am omeprazole 20 mg delayed release oral tablet (6 sources) Proton Pump Inhibitor Start: 02-18-2025 End: 02-28-2025 take 1 tablet by mouth once daily as needed Omeprazole 20 mg tablet,delayed release (DR/EC) Active 20 mg PO DAILY as needed February 28, 2025 11:07am predniSONE 20 mg oral tablet (3 sources) Start: 02-19-2025 take 1 tablet by mouth twice daily Prednisone 20 mg tablet Active 20 mg PO TWICE A DAY 60 February 19, 2025 12:00am begin tonite spironolactone 100 mg oral tablet (1 source) Aldosterone Antagonist Start: 02-28-2025 take 1 tablet by mouth once daily in the morning Spironolactone (Aldactone) 100 mg tablet Active 100 mg PO EVERY MORNING 30 February 28, 2025 12:00am Completed/Discontinued Medications Medication Drug Class(es) Dates Sig [...] Start: 11-28-2013 take 1 capsule by mo [facility] every week cholecalciferol, Vitamin D3, 50,000 unit cap capsule Indications: Vitamin D deficiency Take 1 capsule by mouth once each week. 12 capsule 0 11/28/2013 Active Comment on above: Take 1 capsule by mo [facility] once each week. Take 1 tablet by jae th once daily. clonazePAM 0.5 mg oral tablet (1 source) Benzodiazepine Start: 015 take 1 tablet by mouth twice daily as needed clonazePAM (KLONOPIN) 0.5 mg tablet Indications: Anxiety disorder Take 1 tablet by mouth twice daily as needed. 60 tablet 2 11/04/2014 Active Comment on above: Take 1 tablet by jae twice daily as needed. cyclobenzaprine hydrochloride 10 [...] Classification Problem Date Documented Da te Episodic/Chronic Alcohol-related disorders (8 sources) Alcoholic hepatitis; Translations: [Alcoholic hepatitis without ascites] Onset: 02-28-2025 02-19-2025 Chronic Anxiety disorders (1 source) Anxiety disorder; Translations: [...] Dyspareunia; Translations: [Dyspareunia] Onset: 01-23-2014 01-23-2014 Chronic Other gastrointestinal disorders (2 sources) Ascites; Translations: [Other ascites] 02-28-2025 Episodic Other gastrointestinal disorders (1 source) Other ascites; Translations: [Other ascites] Onset: 03-06-2025 Episodic Other liver diseases (6 sources) Large liver; Translations: [Hepatomegaly, not elsewhere classified] 02-19-2025 Episodic Other liver diseases (2 sources) Jaundice; Translations: [Unspecified jaundice] 02-28-2025 Episodic Other liver diseases (2 sources) Hepatomegaly, not elsewhere classified; Translations: [Hepatomegaly, not elsewhere classified] Onset: 02-28-2025 Episodic Other nutritional; endocrine; and metabolic disorders (2 sources) Weight increased; Translations: [Abnormal weight gain] 02-28-2025 Episodic Other screening for suspected conditions (not mental disorders or infectious disease) (9 sources) Other specified abnormal findings of blood chemistry; Translations: [Elevated liver function tests] Onset: 02-26-2025 02-18-2025 Episodic Residual codes; unclassified (1 source) Viral syndrome; Translations: [Other general symptoms and signs] 07-03-2023 Episodic Residual codes; unclassified (2 sources) Edema; Translations: [Edema, unspecified] 02-28-2025 Episodic Substance-related disorders (1 source) Nicotine dependence, cigarettes, uncomplicated; Translations: [NICOTINE DEPEND CIGARETT] Onset: 11-19-2016 Chronic Unclassified (3 sources) office will call you to schedule the appointment, call by this Tuesday if you don't hear from the office Unclassified (3 sources) Have him recheck your liver enzymes Past or Other Problems Problem Classification Problem [...] Test Name Value Interpretation Reference Range Facility Basic Metabolic Profile (BMP )on 03-07-2025 BUN/CRE 28.6 RATIO High 10-20 [facility] Comment on above: Order Comment: prior to paracentesis Performed By: #### L 100.0100, L500.2500, L500.3400 ####[facility] [address] [place], [address] Calcium [Mass/Vol] 9.7 mg/dL Normal 7.6-11.0 [facility] Comment on above: Order Comment: prior to paracentesis Performed By: #### L 100.0100, L500.2500, L500.3400 ####[facility] [address] [place], [address] Chloride [Moles/Vol] 101 mmol/L Normal 98-108 [facility] Comment on above: Order Comment: prior to paracentesis Performed By: #### L 100.0100, L500.2500, L500.3400 ####[facility] [address] [place], [address] CO2 [Moles/Vol] 22.1 mmol/L Normal 21.0-32.0 [facility] Comment on above: Order Comment: prior to paracentesis Performed By: #### L 100.0100, L500.2500, L500.3400 ####[facility] [address] [place], [address] Creatinine [Mass/Vol] 0.89 mg/dL Normal 0.70-1.20 [facility] Comment on above: Order Comment: prior to paracentesis Performed By: #### L 100.0100, L500.2500, L500.3400 ####[facility] [address] [place], [address] GAP 15 Normal 5-15 [facility] Comment on above: Order Comment: prior to paracentesis Performed By: #### L 100.0100, L500.2500, L500.3400 ####[facility] [address] [place], [address] GFR/1.73 sq M.predicted among non-blacks MDRD (S/P/Bld) [Vol rate/Area] 81 mL/min/{1.73_m2} Normal >60 [facility] Comment on above: Order Comment: prior to paracentesis Result Comment: mL/m in/1.73m2 CKD-EPI Creatinine Equation (2020) Performed By: #### L 100.0100, L500.2500, L500.3400 ####[facility] [address] [place], [address] Glucose [Mass/Vol] 129 mg/dL High 70-99 [facility] Comment on above: Order Comment: prior to paracentesis Performed By: #### L 100.0100, L500.2500, L500.3400 ####[facility] [address] [place], [address] Potassium [Moles/Vol] 4.3 mmol/L Normal 3.3-5.1 [facility] Comment on above: Order Comment: prior to paracentesis Performed By: #### L 100.0100, L500.2500, L500.3400 ####[facility] [address] [place], [address] Sodium [Moles/Vol] 137 mmol/L Normal 133-145 [facility] Comment on above: Order Comment: prior to paracentesis Performed By: #### L 100.0100, L500.2500, L500.3400 ####[facility] [address] [place], [address] Urea nitrogen [Mass/Vol] 25 mg/dL High 4-19 [facility] Comment on above: Order Comment: prior to paracentesis Performed By: #### L 100.0100, L500.2500, L500.3400 ####[facility] [address] [place], [address] CBC W/Diff, Automatedon 02-18 Absolute Lymph 0.39 X10 3/uL Low 0.83-4.51 [facility] Comment on above: Performed By: #### L 100.0100, L500.2500, L500.3400 ####[facility] [address] [place], [address] Absolute Neut 18.5 X10 3/uL High 2.0-7.7 [facility] Comment on above: Performed By: #### L 100.0100, L500.2500, L500.3400 ####[facility] [address] [place], [address] Basophils/100 WBC (Bld) 0.1 % Normal 0-1 [facility] Comment on above: Performed By: #### L 100.0100, L500.2500, L500.3400 ####[facility] [address] [place], [address] Eosinophils/100 WBC (Bld) 0.1 % Normal 0-5 [facility] Comment on above: Performed By: #### L 100.0100, L500.2500, L500.3400 ####[facility] [address] [place], [address] Erythrocyte distribution width (RBC) [Ratio] 15.0 % High 11.6-14.6 [facility] Comment on above: Performed By: #### L 100.0100, L500.2500, L500.3400 ####[facility] [address] [place], [address] Hematocrit (Bld) [Volume fraction] 34.8 % Low 37-47 [facility] Comment on above: Performed By: #### L 100.0100, L500.2500, L500.3400 ####[facility] [address] [place], [address] Hemoglobin (Bld) [Mass/Vol] 11.7 g/dL Low 12.0-15.0 [facility] Comment on above: Performed By: #### L 100.0100, L500.2500, L500.3400 ####[facility] [address] [place], [address] IG% 1.300 High 0.0-0.9 [facility] Comment on above: Result Comment: IG% - Immature Granulocytes (promyelocytes, myelocytes and metamyelocytes) > 1% indicates that a LEFT SHIFT is Present. Performed By: #### L 100.0100, L500.2500, L500.3400 ####[facility] [address] [place], [address] Lymphocytes/100 WBC (Bld) 2.0 % Low 19-41 [facility] Comment on above: Performed By: #### L 100.0100, L500.2500, L500.3400 ####[facility] [address] [place], [address] MCH (RBC) [Entitic mass] 35.8 pg High 27.0-32.0 [facility] Comment on above: Performed By: #### L 100.0100, L500.2500, L500.3400 ####[facility] [address] [place], [address] MCHC (RBC) [Mass/Vol] 33.6 g/dL Normal 32-36 [facility] Comment on above: Performed By: #### L 100.0100, L500.2500, L500.3400 ####[facility] [address] [place], [address] MCV (RBC) [Entitic vol] 106.4 fL High 81-99 [facility] Comment on above: Performed By: #### L 100.0100, L500.2500, L500.3400 ####[facility] [address] [place], [address] Monocytes/100 WBC (Bld) 3.7 % Normal 0-10 [facility] Comment on above: Performed By: #### L 100.0100, L500.2500, L500.3400 ####[facility] [address] [place], [address] Neutrophils/100 WBC (Bld) 92.8 % High 47-70 [facility] Comment on above: Performed By: #### L 100.0100, L500.2500, L500.3400 ####[facility] [address] [place], [address] Nucleated RBC (Bld) [#/Vol] 0 10*3/uL Normal 0-5 [facility] Comment on above: Performed By: #### L 100.0100, L500.2500, L500.3400 ####[facility] [address] [place], [address] Platelet mean volume (Bld) [Entitic vol] 11.1 fL Normal 6.2-12.0 [facility] Comment on above: Performed By: #### L 100.0100, L500.2500, L500.3400 ####[facility] [address] [place], [address] Platelets (Bld) [#/Vol] 246 10*3/uL Normal 150-450 [facility] Comment on above: Performed By: #### L 100.0100, L500.2500, L500.3400 ####[facility] [address] [place], [address] RBC (Bld) [#/Vol] 3.27 10*6/uL Low 4.2-5.4 [facility] Comment on above: Performed By: #### L 100.0100, L500.2500, L500.3400 ####[facility] [address] [place], [address] RDW SD 58.9 fl High 35.1-43.9 [facility] Comment on above: Performed By: #### L 100.0100, L500.2500, L500.3400 ####[facility] [address] [place], [address] WBC (Bld) [#/Vol] 20.0 10*3/uL High 4.4-11.0 [facility] Comment on above: Performed By: #### L 100.0100, L500.2500, L500.3400 ####[facility] [address] [place], [address] Liver Profileon 03-07-2025 Albumin [Mass/Vol] 3.9 g/dL Normal 3.5-5.0 [facility] Comment on above: Order Comment: prior to paracentesis Performed By: #### L 100.0100, L500.2500, L500.3400 ####[facility] [address] [place], [address] ALK PHOS 229 U/L High 35-104 [facility] Comment on above: Order Comment: prior to paracentesis Performed By: #### L 100.0100, L500.2500, L500.3400 ####[facility] [address] [place], [address] ALT [Catalytic activity/Vol] 349 U/L High <=34 [facility] Comment on above: Order Comment: prior to paracentesis Performed By: #### L 100.0100, L500.2500, L500.3400 ####[facility] [address] [place], [address] AST [Catalytic activity/Vol] 321 U/L High <=31 [facility] Comment on above: Order Comment: prior to paracentesis Performed By: #### L 100.0100, L500.2500, L500.3400 ####[facility] [address] [place], [address] Bilirubin [Mass/Vol] 3.49 mg/dL High 0.00-1.30 [facility] Comment on above: Order Comment: prior to paracentesis Performed By: #### L 100.0100, L500.2500, L500.3400 ####[facility] [address] [place], [address] Bilirubin.direct [Mass/Vol] 2.41 mg/dL High 0.00-0.30 [facility] Comment on above: Order Comment: prior to paracentesis Performed By: #### L 100.0100, L500.2500, L500.3400 ####[facility] [address] [place], [address] Globulin (S) [Mass/Vol] 3.3 g/dL Normal 2.2-4.2 [facility] Comment on above: Order Comment: prior to paracentesis Performed By: #### L 100.0100, L500.2500, L500.3400 ####[facility] [address] [place], [address] T PROT 7.1 g/dL Normal 5.9-8.4 [facility] Comment on above: Order Comment: prior to paracentesis Performed By: #### L 100.0100, L500.2500, L500.3400 ####[facility] [address] [place], [address] Abdomen Limitedon 03-05-2025 Abdomen Limited [facility] Imaging Services [address] [place], [place] [address] Abdomen Limited MR#: [id number] Acct: [id number] Name: AALIYAH CARDENAS Rep #: [id number] : 1980 F 44 From: Zane arboleda MD PCP: Care Physician,No Primary Status: DEP CLI Study: Abdomen Limited Date of Exam: 03/05/25 Exam# [id number] Ordering Dr: Radha Sands PROCEDURE: ABDOMEN LIMITED 03/05/2025 REASON FOR EXAM: ASCITES TECHNIQUE: Procedure Code: USABDL Modality: US Procedure: ABDOMEN LIMITED. The 4 quadrants were assessed for possible ascites. COMPARISON: None FINDINGS: No ascites seen. US/Abdomen Limited IMPRESSION: No ascites seen. Reading Location: [place] [address] CC: PRODUCT DEVELOPMENT COORDINATOR-C Radha Sands; No Primary Care Physician Consumer Marketing Analyst: Signed Normal [facility] Absolute lymphocyte countOrd ered By: Radha Sands on 02-28-2025 Lymphocytes Auto (Unsp spec) [#/Vol] 1.04 10*3/uL 0.83-4.51 [facility] Absolute neutrophil countOrd ered By: Radha Sands on 02-28-2025 Neutrophils (Bld) [#/Vol] 15.9 10*3/uL High 2.0-7.7 [facility] Anion gap in Serum or Plasma Ordered By: Radha Sands on 02-28-2025 Anion gap [Moles/Vol] 12 mmol/L 5-15 [facility] Automated lymphocyte count a s percentage of total leukocytesOrdered By: Radha Sands on 02-28-2025 Lymphocytes/100 WBC Auto (Unsp spec) 5.6 % Low 19-41 [facility] BUN/creatinine ratioOrdered By: Radha Sands on 02-28-2025 Urea nitrogen/Creatinine [Mass ratio] 23.9 mg/mg High 10-20 [facility] Basic Metabolic Profile (BMP )on 02-28-2025 BUN/CRE 23.9 RATIO High 10-20 [facility] Comment on above: Performed By: #### L 100.0100, L300.3900, L500.2500, L500.3400, L3890.6202 ####[facility] [address] [place], [address] Calcium [Mass/Vol] 9.5 mg/dL Normal 7.6-11.0 [facility] Comment on above: Performed By: #### L 100.0100, L300.3900, L500.2500, L500.3400, L3890.6202 ####[facility] [address] [place], [address] Chloride [Moles/Vol] 100 mmol/L Normal 98-108 [facility] Comment on above: Performed By: #### L 100.0100, L300.3900, L500.2500, L500.3400, L3890.6202 ####[facility] [address] [place], [address] CO2 [Moles/Vol] 26.5 mmol/L Normal 21.0-32.0 [facility] Comment on above: Performed By: #### L 100.0100, L300.3900, L500.2500, L500.3400, L3890.6202 ####[facility] [address] [place], [address] Creatinine [Mass/Vol] 0.80 mg/dL Normal 0.70-1.20 [facility] Comment on above: Result Comment: Icte sabiha present, Results may be affected. Performed By: #### L 100.0100, L300.3900, L500.2500, L500.3400, L3890.6202 ####[facility] [address] [place], [address] GAP 12 Normal 5-15 [facility] Comment on above: Performed By: #### L 100.0100, L300.3900, L500.2500, L500.3400, L3890.6202 ####[facility] [address] [place], [address] GFR/1.73 sq M.predicted among non-blacks MDRD (S/P/Bld) [Vol rate/Area] 93 mL/min/{1.73_m2} Normal >60 [facility] Comment on above: Result Comment: mL/m in/1.73m2 CKD-EPI Creatinine Equation (2020) Performed By: #### L 100.0100, L300.3900, L500.2500, L500.3400, L3890.6202 ####[facility] [address] [place], [address] Glucose [Mass/Vol] 94 mg/dL Normal 70-99 [facility] Comment on above: Performed By: #### L 100.0100, L300.3900, L500.2500, L500.3400, L3890.6202 ####[facility] [address] [place], [address] Potassium [Moles/Vol] 4.7 mmol/L Normal 3.3-5.1 [facility] Comment on above: Performed By: #### L 100.0100, L300.3900, L500.2500, L500.3400, L3890.6202 ####[facility] [address] [place], [address] Sodium [Moles/Vol] 138 mmol/L Normal 133-145 [facility] Comment on above: Performed By: #### L 100.0100, L300.3900, L500.2500, L500.3400, L3890.6202 ####[facility] [address] [place], [address] Urea nitrogen [Mass/Vol] 19 mg/dL Normal 4-19 [facility] Comment on above: Performed By: #### L 100.0100, L300.3900, L500.2500, L500.3400, L3890.6202 ####[facility] [address] [place], [place], [address] Basophil percentageOrdered B y: Radha Sands on 02-28-2025 Basophils/100 WBC (Bld) 0.3 % 0-1 [facility] Bilirubin directOrdered By: Radha Sands on 02-28-2025 Bilirubin.direct [Mass/Vol] 3.46 mg/dL High 0.00-0.30 [facility] Bilirubin, totalOrdered By: Radha Sands on 02-28-2025 Bilirubin [Mass/Vol] 5.24 mg/dL High 0.00-1.30 [facility] Blood stomatocytes detection by light microscopyOrdered By: Radha Sands on 02-28-2025 Stomatocytes LM Ql (Bld) 3+ [facility] CBC W/Diff, Automatedon 02-18 STOMATOCYTE 3+ Normal [facility] Comment on above: Performed By: #### L 100.0100, L300.3900, L500.2500, L500.3400, L3890.6202 #### [facility] Laboratory [address] [place], [place], [id number] Carbon dioxide, total [Moles /volume] in Central venous bloodOrdered By: Radha Sands on 02-28-2025 CO2 [Moles/Vol] 26.5 mmol/L 21.0-32.0 [facility] Chloride assayOrdered By: Aditya Sands on 02-28-2025 Chloride [Moles/Vol] 100 mmol/L 98-108 [facility] Eosinophil percentageOrdered By: Radha Sands on 02-28-2025 Eosinophils/100 WBC (Bld) 0.4 % 0-5 [facility] Erythrocyte distribution wid th ratioOrdered By: Radha Sands on 02-28-2025 Erythrocyte distribution width (RBC) [Ratio] 17.5 % High 11.6-14.6 [facility] Erythrocyte distribution wid th standard deviationOrdered By: Radha Sands on 02-28-2025 Erythrocyte distribution width (RBC) [Ratio] 67.1 fl High 35.1-43.9 [facility] Gastroenterology Visit Repor ton 02-28-2025 Gastroenterology Visit Report [facility] [address] [place] [address] OFFICE VISIT Date of Service: 02/28/25 MR#: [id number] Acct: [id number] Name: AALIYAH CARDENAS Rep #: [id number] : 1980 Provider: EMILIE valle Age/Sex: 44/F Location: [facility] Status: Signed Intake Vital Signs 02/18/25 17:39 02/28/25 11:11 Height 5 ft 5 in 5 ft 5 in Weight: 224 lb 2 oz BMI 37.3 BP 151/94 H Respiration 16 Pulse 76 Temp 97.9 F Temp Source Temporal Pulse Oximetry (%) 98 Oxygen Delivery Method room air Intake Visit Reasons: elevated liver enzymes Chief Complaint: consult post admission for acute alcoholic hepatitis Online Media [employer]er Required: No Accompanied by: Is patient in pain?: No Allergies No Known Allergies Allergy (Verified 02/28/25 11:00) Medications ???Medication ???Instructions ???Recorded ???Confirmed ???Type prednisone 20 mg tablet 20 mg PO BID #60 tabs 02/19/2505/14 Rx furosemide 40 mg tablet (Lasix) 40 mg PO QAM #30 tabs 02/28/2505/14 Rx omeprazole 20 mg tablet,delayed 20 mg PO DAILY PRN 02/28/25 History release spironolactone 100 mg tablet 100 mg PO QAM #30 tabs 02/28/25 Rx (Aldactone) PFSH Medical History Elevated liver function tests Alcohol abuse Depression Anxiety GERD (gastroesophageal reflux disease) Former smoker Social History Smoking Status: Current every day smoker tobacco type: cigarettes alcohol intake: never substance use type: does not use what type of physical activity do you participate in: walking frequency: daily HPI HPI Chief Complaint: consult post admission for acute alcoholic hepatitis Details: Discharged 02/19/2025 This 44-year-old white female was seen in the emergency room at [facility] for evaluation of dysuria and right upper quadrant abdominal pain. She had also noted a discoloration of her skin over the past several days. Patient admitted to a daily intake of alcohol. Lab work obtained revealed normal CBC, patient's chemistry was abnormal for a bilirubin of 10.3, alkaline phosphatase of 426, AST of 324 and an ALT of 100. Patient's lactic acid was elevated at 3.3, her lipase was normal. CT of the abdomen pelvis showed no evidence for cholecystitis or pancreatitis, there was hepatomegaly with severe fatty liver infiltration, there was no acute or active inflammatory intra-abdominal pathology. Patient's urine showed +3 bacteria but it was not a good specimen as it had 5-10 squamous cells present, there were 10-25 WBCs seen. Patient was admitted to [place] [address], she was seen in consultation by gastroenterology felt that the patient had alcoholic hepatitis. Patient's urine culture came back showing low numbers of alphahemolytic organism she was not felt to have a UTI. On 02/19/2025, patient was seen and examined: On examination she appeared in good health and spirits, she does not appear to be in any distress. Vital signs as documented. Skin warm and dry and without overt rashes. Patient appeared jaundiced. Neck without JVD, thyroid appears normal, trachea is midline, neck is supple. Lungs clear, normal air movement was noted. Heart exam notable for regular rhythm, normal sounds and absence of murmurs, rubs or gallops. Abdomen unremarkable and without evidence of organomegaly, masses, or abdominal aortic enlargement, bowel sounds are present in all 4 quadrants, no abdominal tenderness was noted. Extremities nonedematous, no cyanosis was noted, no clubbing was noted. Neuro: Cranial nerves II through XII are grossly intact, no focal motor deficits were noted, sensation to light touch and pinprick is intact, motor exam 5/5 throughout. Psych: Patient is alert and oriented x3, she does not appear anxious or depressed, she does not appear agitated. US/Abdomen Limited IMPRESSION: 1. Somewhat limited exam. 2. Distended gallbladder with sludge. No biliary dilatation or definite evidence of acute cholecystitis. 3. Hepatomegaly with appearance of the parenchyma most frequently associated with hepatic steatosis or other chronic liver disease. Correlate with clinical and laboratory evaluation. CT/Abdomen/Pelvis W IV Cont ONLY IMPRESSION: 1. No acute or active inflammatory intra-abdominal pathology. 2. No evidence for acute cholecystitis or pancreatitis. No biliary ductal dilatation. 3. Hepatomegaly with severe fatty infiltration. Submucosal fat deposition throughout the colon presumably metabolic in nature and can be seen with insulin resistance. Labs on admission: ??? WBC 9.9, HGB 13.8, MCV 100.5, PLT 196, ANC 8.3, ALC 0.76 ??? INR 1.2, Na 135, K+ 3.2, Creat 0.87, BUN 6, Lactic Acid 3.3 ??? T. bili 10.3, D. bili 6.81, AST 324, ALT 100, ALP 426 ??? (more content not included)... Normal [facility] Glomerular filtration rate ( GFR) estimation/1.73 sq m using serum, plasma, or whole bOrdered By: Radha Sands on 02-28-2025 GFR/1.73 sq M.predicted among non-blacks MDRD (S/P/Bld) [Vol rate/Area] 93 mL/min/{1.73_m2} >60 [facility] Comment on above: mL/min/1.73m2 CKD-EP I Creatinine Equation (2020) Hematocrit Auto (Bld) [Volum e fraction]Ordered By: Radha Sands on 02-28-2025 Hematocrit (Bld) [Volume fraction] 35.3 % Low 37-47 [facility] Hemoglobin measurementOrdere d By: Radha Sands on 02-28-2025 Hemoglobin (Bld) [Mass/Vol] 12.2 g/dL 12.0-15.0 [facility] Hepatitis B Surface Antibody on 02-28-2025 HEP B Surf Ab REAC Normal [facility] Comment on above: Result Comment: <8.5 mIU/mL: Non-Reactive 8.5<= x <11.5 mIU/mL: Indeterminate >=11.5 mIU/mL: Reactive Non Reactive: Inconsistent with immunity less than <10 mIU/mL Reactive: Consistent with immunity greater than or equal to 10 mIU/mL Performed By: #### L 100.0100, L300.3900, L500.2500, L500.3400, L3890.6202 ####[facility] [address] [place], [address] Immature granulocytes/100 WB C Auto (Bld)Ordered By: Radha Sands on 02-28-2025 Immature granulocytes/100 WBC (Bld) 1.600 % High 0.0-0.9 [facility] Comment on above: IG% - Immature Granu locytes (promyelocytes, myelocytes and metamyelocytes) > 1% indicates that a LEFT SHIFT is Present. International normalized rat io (INR) calculationOrdered By: Radha Sands on 02-28-2025 INR Coag (Bld) [Relative time] 1.2 {INR} [facility] Laboratory - Chemistry and C hemistry - challengeOrdered By: Radha Sands on 02-28-2025 AST [Catalytic activity/Vol] 286 U/L High <32 [facility] Liver Profileon 02-28-2025 Albumin [Mass/Vol] 3.7 g/dL Normal 3.5-5.0 [facility] Comment on above: Performed By: #### L 100.0100, L300.3900, L500.2500, L500.3400, L3890.6202 ####[facility] [address] [place], [address] ALK PHOS 280 U/L High 35-104 [facility] Comment on above: Performed By: #### L 100.0100, L300.3900, L500.2500, L500.3400, L3890.6202 ####[facility] [address] [place], [address] ALT [Catalytic activity/Vol] 200 U/L High <=34 [facility] Comment on above: Performed By: #### L 100.0100, L300.3900, L500.2500, L500.3400, L3890.6202 ####[facility] [address] [place], [address] AST [Catalytic activity/Vol] 286 U/L High <=31 [facility] Comment on above: Performed By: #### L 100.0100, L300.3900, L500.2500, L500.3400, L3890.6202 ####[facility] [address] [place], [address] Bilirubin [Mass/Vol] 5.24 mg/dL High 0.00-1.30 [facility] Comment on above: Performed By: #### L 100.0100, L300.3900, L500.2500, L500.3400, L3890.6202 ####[facility] [address] [place], [address] Bilirubin.direct [Mass/Vol] 3.46 mg/dL High 0.00-0.30 [facility] Comment on above: Performed By: #### L 100.0100, L300.3900, L500.2500, L500.3400, L3890.6202 ####[facility] [address] [place], [address] Globulin (S) [Mass/Vol] 3.3 g/dL Normal 2.2-4.2 [facility] Comment on above: Performed By: #### L 100.0100, L300.3900, L500.2500, L500.3400, L3890.6202 ####[facility] [address] [place], [address] T PROT 7.0 g/dL Normal 5.9-8.4 [facility] Comment on above: Performed By: #### L 100.0100, L300.3900, L500.2500, L500.3400, L3890.6202 ####[facility] [address] [place], [address] MCV (mean corpuscular volume ) determinationOrdered By: Radha Sands on 02-28-2025 MCV (RBC) [Entitic vol] 104.4 fL High 81-99 [facility] Mean corpuscular hemoglobin (MCH) determinationOrdered By: Radha Sands on 02-28-2025 MCH (RBC) [Entitic mass] 36.1 pg High 27.0-32.0 [facility] Mean corpuscular hemoglobin concentration (MCHC) determinationOrdered By: Radha Sands on 02-28-2025 MCHC (RBC) [Mass/Vol] 34.6 g/dL 32-36 [facility] Mean platelet volume determi nationOrdered By: Radha Sands on 02-28-2025 Platelet mean volume (Bld) [Entitic vol] 10.9 fL 6.2-12.0 [facility] Monocyte percentageOrdered B y: Radha Sands on 02-28-2025 Monocytes/100 WBC (Bld) 5.7 % 0-10 [facility] Neutrophil percentageOrdered By: Radha Sands on 02-28-2025 Neutrophils/100 WBC (Bld) 86.4 % High 47-70 [facility] Nucleated red blood cell per centageOrdered By: Radha Sands on 02-28-2025 Nucleated RBC/100 WBC (Bld) [Ratio] 0 % 0-5 [facility] Platelet countOrdered By: Aditya Sands on 02-28-2025 Platelets (Bld) [#/Vol] 295 10*3/uL 150-450 [facility] Potassium measurement (mass/ volume)Ordered By: Radha Sands on 02-28-2025 Potassium (Unsp spec) [Mass/Vol] 4.7 mmol/L 3.3-5.1 [facility] Prothrombin Time w/INRon INR Coag (PPP) [Relative time] 1.2 {INR} Normal [facility] Comment on above: Performed By: #### L 100.0100, L300.3900, L500.2500, L500.3400, L3890.6202 ####[facility] [address] [place], [place], [id number] PT Coag (PPP) [Time] 15.0 s High 11.7-14.9 [facility] Comment on above: Performed By: #### L 100.0100, L300.3900, L500.2500, L500.3400, L3890.6202 ####[facility] [address] [place], [place], [address] Prothrombin timeOrdered By: Radha Sands on 02-28-2025 PT Coag (PPP) [Time] 15.0 s High 11.7-14.9 [facility] RBC Auto (Bld) [#/Vol]Ordere d By: Radha Sands on 02-28-2025 RBC (Bld) [#/Vol] 3.38 10*6/uL Low 4.2-5.4 [facility] Serum creatinine measurement (mass/volume)Ordered By: Radha Sands on 02-28-2025 Creatinine [Mass/Vol] 0.80 mg/dL 0.70-1.20 [facility] Comment on above: Icterus present, Res ults may be affected. Serum globulin measurementOr dered By: Radha Sands on 02-28-2025 Globulin (S) [Mass/Vol] 3.3 g/dL 2.2-4.2 [facility] Serum glucose measurement (m ass/volume)Ordered By: Radha Sands on 02-28-2025 Glucose [Mass/Vol] 94 mg/dL 70-99 [facility] Serum hepatitis B virus surf aria antibody detectionOrdered By: Radha Sands on 02-28-2025 HBV surface Ab Ql (S) REAC [facility] Comment on above: <8.5 mIU/mL: Non-[place] ctive8.5<= x <11.5 mIU/mL: Indeterminate>=11.5 mIU/mL: Reactive Non Reactive: Inconsistent with immunity less than <10 mIU/mL Reactive: Consistent with immunity greater than or equal to 10 mIU/mL Serum or plasma alanine amador otransferase (ALT) measurementOrdered By: Radha Sands on 02-28-2025 ALT [Catalytic activity/Vol] 200 U/L High <35 [facility] Serum or plasma albumin espinoza urement (mass/volume)Ordered By: Radha Sands on 02-28-2025 Albumin [Mass/Vol] 3.7 g/dL 3.5-5.0 [facility] Serum or plasma alkaline naveed sphatase measurementOrdered By: Radha Sands on 02-28-2025 ALP [Catalytic activity/Vol] 280 U/L High 35-104 [facility] Serum or plasma calcium espinoza urement (mass/volume)Ordered By: Radha Sands on 02-28-2025 Calcium [Mass/Vol] 9.5 mg/dL 7.6-11.0 [facility] Serum or plasma urea nitroge n measurement (mass/volume)Ordered By: Radha Sands on 02-28-2025 Urea nitrogen [Mass/Vol] 19 mg/dL 4-19 [facility] Sodium levelOrdered By: Isabel Sands on 02-28-2025 Sodium [Moles/Vol] 138 mmol/L 133-145 [facility] Total proteinOrdered By: Cierra Sands on 02-28-2025 Protein [Mass/Vol] 7.0 g/dL 5.9-8.4 [facility] White blood cell (WBC) count Ordered By: Radha Sands on 02-28-2025 WBC (Bld) [#/Vol] 18.5 10*3/uL High 4.4-11.0 [facility] Hepatitis Panel Acuteon COMMENT Comment Normal . [facility] Comment on above: Result Comment: Not infected with HCV unless early or acute infection is suspected (which may be delayed in an immunocompromised individual), or other evidence exists to indicate HCV infection. Performed at: - [facility] [id number] Supervisor Plate Forming: Gato Carrillo PhD, Phone: [phone] Performed By: #### L 3000.0375 ####[facility] [address] [place], [address] HEP B CORE,IgM Negative Normal Negative [facility] Comment on above: Performed By: #### L 3000.0375 ####[facility] [address] [place], [address] HEP B SURF AG Negative Normal Negative [facility] Comment on above: Performed By: #### L 3000.0375 ####[facility] [address] [place], [address] HEP C VIRUS AB Non-Reactive Normal Non Reactive [facility] Comment on above: Performed By: #### L 3000.0375 ####[facility] [address] [place], [address] HEPATITIS A-IgM Negative Normal Negative [facility] Comment on above: Result Comment: A ne gative anti-HAV IgM result suggests no recent or current HAV infection. Performed By: #### L 3000.0375 ####[facility] [address] [place], [address] Urine Cultureon 02-20-2025 URC Below infection level. Alpha hemolytic organism [place] Count 1000-10,000 Normal [facility] Comment on above: Performed By: #### M 100.2200 ####[facility] [address] [place], [address] Absolute lymphocyte countOrd ered By: Sanam Balderrama on 02-19-2025 Lymphocytes Auto (Unsp spec) [#/Vol] 0.68 10*3/uL Low 0.83-4.51 [facility] Absolute neutrophil countOrd ered By: Sanam Balderrama on 02-19-2025 Neutrophils (Bld) [#/Vol] 5.9 10*3/uL 2.0-7.7 [facility] Anion gap in Serum or Plasma Ordered By: Sanam Balderrama on 02-19-2025 Anion gap [Moles/Vol] 12 mmol/L 5-15 [facility] Automated lymphocyte count a s percentage of total leukocytesOrdered By: Sanam Balderrama on 02-19-2025 Lymphocytes/100 WBC Auto (Unsp spec) 9.3 % Low 19-41 [facility] BUN/creatinine ratioOrdered By: Sanamredd Balderrama on 02-19-2025 Urea nitrogen/Creatinine [Mass ratio] 6.7 mg/mg Low 10-20 [facility] Basophil percentageOrdered B y: Sanam Balderrama on 02-19-2025 Basophils/100 WBC (Bld) 0.8 % 0-1 [facility] Bilirubin, totalOrdered By: Sanam Balderrama on 02-19-2025 Bilirubin [Mass/Vol] 10.30 mg/dL High 0.00-1.30 [facility] CBC W/Diff, Automatedon Absolute Lymph 0.68 X10 3/uL Low 0.83-4.51 [facility] Comment on above: Performed By: #### L 100.0100, L300.3900, L500.4050, L501.5200, L501.9520 ####[facility] [address] [place], [address] Absolute Neut 5.9 X10 3/uL Normal 2.0-7.7 [facility] Comment on above: Performed By: #### L 100.0100, L300.3900, L500.4050, L501.5200, L501.9520 ####[facility] [address] [place], [address] Basophils/100 WBC (Bld) 0.8 % Normal 0-1 [facility] Comment on above: Performed By: #### L 100.0100, L300.3900, L500.4050, L501.5200, L501.9520 ####[facility] [address] [place], [address] Eosinophils/100 WBC (Bld) 2.5 % Normal 0-5 [facility] Comment on above: Performed By: #### L 100.0100, L300.3900, L500.4050, L501.5200, L501.9520 ####[facility] [address] [place], [address] Erythrocyte distribution width (RBC) [Ratio] 17.5 % High 11.6-14.6 [facility] Comment on above: Performed By: #### L 100.0100, L300.3900, L500.4050, L501.5200, L501.9520 ####[facility] [address] [place], [address] Hematocrit (Bld) [Volume fraction] 30.6 % Low 37-47 [facility] Comment on above: Performed By: #### L 100.0100, L300.3900, L500.4050, L501.5200, L501.9520 ####[facility] [address] [place], [address] Hemoglobin (Bld) [Mass/Vol] 11.0 g/dL Low 12.0-15.0 [facility] Comment on above: Performed By: #### L 100.0100, L300.3900, L500.4050, L501.5200, L501.9520 ####[facility] [address] [place], [address] IG% 0.700 Normal 0.0-0.9 [facility] Comment on above: Result Comment: IG% - Immature Granulocytes (promyelocytes, myelocytes and metamyelocytes) > 1% indicates that a LEFT SHIFT is Present. Performed By: #### L 100.0100, L300.3900, L500.4050, L501.5200, L501.9520 ####[facility] [address] [place], [address] Lymphocytes/100 WBC (Bld) 9.3 % Low 19-41 [facility] Comment on above: Performed By: #### L 100.0100, L300.3900, L500.4050, L501.5200, L501.9520 ####[facility] [address] [place], [address] MCH (RBC) [Entitic mass] 36.5 pg High 27.0-32.0 [facility] Comment on above: Performed By: #### L 100.0100, L300.3900, L500.4050, L501.5200, L501.9520 ####[facility] [address] [place], [address] MCHC (RBC) [Mass/Vol] 35.9 g/dL Normal 32-36 [facility] Comment on above: Performed By: #### L 100.0100, L300.3900, L500.4050, L501.5200, L501.9520 ####[facility] [address] [place], [address] MCV (RBC) [Entitic vol] 101.7 fL High 81-99 [facility] Comment on above: Performed By: #### L 100.0100, L300.3900, L500.4050, L501.5200, L501.9520 ####[facility] [address] [place], [address] Monocytes/100 WBC (Bld) 6.5 % Normal 0-10 [facility] Comment on above: Performed By: #### L 100.0100, L300.3900, L500.4050, L501.5200, L501.9520 ####[facility] [address] [place], [address] Neutrophils/100 WBC (Bld) 80.2 % High 47-70 [facility] Comment on above: Performed By: #### L 100.0100, L300.3900, L500.4050, L501.5200, L501.9520 ####[facility] [address] [place], [address] Nucleated RBC (Bld) [#/Vol] 0 10*3/uL Normal 0-5 [facility] Comment on above: Performed By: #### L 100.0100, L300.3900, L500.4050, L501.5200, L501.9520 ####[facility] [address] [place], [address] Platelet mean volume (Bld) [Entitic vol] 10.6 fL Normal 6.2-12.0 [facility] Comment on above: Performed By: #### L 100.0100, L300.3900, L500.4050, L501.5200, L501.9520 ####[facility] [address] [place], [address] Platelets (Bld) [#/Vol] 170 10*3/uL Normal 150-450 [facility] Comment on above: Performed By: #### L 100.0100, L300.3900, L500.4050, L501.5200, L501.9520 ####[facility] [address] [place], [address] RBC (Bld) [#/Vol] 3.01 10*6/uL Low 4.2-5.4 [facility] Comment on above: Performed By: #### L 100.0100, L300.3900, L500.4050, L501.5200, L501.9520 ####[facility] [address] [place], [address] RDW SD 64.0 fl High 35.1-43.9 [facility] Comment on above: Performed By: #### L 100.0100, L300.3900, L500.4050, L501.5200, L501.9520 ####[facility] [address] [place], [address] WBC (Bld) [#/Vol] 7.3 10*3/uL Normal 4.4-11.0 [facility] Comment on above: Performed By: #### L 100.0100, L300.3900, L500.4050, L501.5200, L501.9520 ####[facility] [address] [place], [address] Carbon dioxide, total [Moles /volume] in Central venous bloodOrdered By: Sanam Balderrama on 02-19-2025 CO2 [Moles/Vol] 23.9 mmol/L 21.0-32.0 [facility] Chloride assayOrdered By: Li Balderrama on 02-19-2025 Chloride [Moles/Vol] 99 mmol/L 98-108 [facility] Comprehensive Metabolic Prof ilon 02-19-2025 Albumin [Mass/Vol] 3.0 g/dL Low 3.5-5.0 [facility] Comment on above: Performed By: #### L 100.0100, L300.3900, L500.4050, L501.5200, L501.9520 ####[facility] [address] [place], [address] Albumin/Globulin [Mass ratio] 1.0 {ratio} Normal 0.9-2.4 [facility] Comment on above: Performed By: #### L 100.0100, L300.3900, L500.4050, L501.5200, L501.9520 ####[facility] [address] [place], [address] ALK PHOS 308 U/L High 35-104 [facility] Comment on above: Performed By: #### L 100.0100, L300.3900, L500.4050, L501.5200, L501.9520 ####[facility] [address] [place], [address] ALT [Catalytic activity/Vol] 71 U/L High <=34 [facility] Comment on above: Performed By: #### L 100.0100, L300.3900, L500.4050, L501.5200, L501.9520 ####[facility] [address] [place], [address] AST [Catalytic activity/Vol] 230 U/L High <=31 [facility] Comment on above: Performed By: #### L 100.0100, L300.3900, L500.4050, L501.5200, L501.9520 ####[facility] [address] [place], [address] Bilirubin [Mass/Vol] 10.30 mg/dL High 0.00-1.30 [facility] Comment on above: Performed By: #### L 100.0100, L300.3900, L500.4050, L501.5200, L501.9520 ####[facility] [address] [place], [address] BUN/CRE 6.7 RATIO Low 10-20 [facility] Comment on above: Performed By: #### L 100.0100, L300.3900, L500.4050, L501.5200, L501.9520 ####[facility] [address] [place], [address] Calcium [Mass/Vol] 7.9 mg/dL Normal 7.6-11.0 [facility] Comment on above: Performed By: #### L 100.0100, L300.3900, L500.4050, L501.5200, L501.9520 ####[facility] [address] [place], [address] Chloride [Moles/Vol] 99 mmol/L Normal 98-108 [facility] Comment on above: Performed By: #### L 100.0100, L300.3900, L500.4050, L501.5200, L501.9520 ####[facility] [address] [place], [address] CO2 [Moles/Vol] 23.9 mmol/L Normal 21.0-32.0 [facility] Comment on above: Performed By: #### L 100.0100, L300.3900, L500.4050, L501.5200, L501.9520 ####[facility] [address] [place], [address] Creatinine [Mass/Vol] 0.77 mg/dL Normal 0.70-1.20 [facility] Comment on above: Result Comment: Icte sabiha present, Results may be affected. Performed By: #### L 100.0100, L300.3900, L500.4050, L501.5200, L501.9520 ####[facility] [address] [place], [address] ECRCL 103.16 ml/min Normal 50-250 [facility] Comment on above: Performed By: #### L 100.0100, L300.3900, L500.4050, L501.5200, L501.9520 ####[facility] [address] [place], [address] GAP 12 Normal 5-15 [facility] Comment on above: Performed By: #### L 100.0100, L300.3900, L500.4050, L501.5200, L501.9520 ####[facility] [address] [place], [address] GFR/1.73 sq M.predicted among non-blacks MDRD (S/P/Bld) [Vol rate/Area] 96 mL/min/{1.73_m2} Normal >60 [facility] Comment on above: Result Comment: mL/m in/1.73m2 CKD-EPI Creatinine Equation (2020) Performed By: #### L 100.0100, L300.3900, L500.4050, L501.5200, L501.9520 ####[facility] [address] [place], [address] Globulin (S) [Mass/Vol] 3.1 g/dL Normal 2.2-4.2 [facility] Comment on above: Performed By: #### L 100.0100, L300.3900, L500.4050, L501.5200, L501.9520 ####[facility] [address] [place], [address] Glucose [Mass/Vol] 81 mg/dL Normal 70-99 [facility] Comment on above: Performed By: #### L 100.0100, L300.3900, L500.4050, L501.5200, L501.9520 ####[facility] [address] [place], [address] Potassium [Moles/Vol] 3.5 mmol/L Normal 3.3-5.1 [facility] Comment on above: Performed By: #### L 100.0100, L300.3900, L500.4050, L501.5200, L501.9520 ####[facility] [address] [place], [address] Sodium [Moles/Vol] 135 mmol/L Normal 133-145 [facility] Comment on above: Performed By: #### L 100.0100, L300.3900, L500.4050, L501.5200, L501.9520 ####[facility] [address] [place], [address] T PROT 6.1 g/dL Normal 5.9-8.4 [facility] Comment on above: Performed By: #### L 100.0100, L300.3900, L500.4050, L501.5200, L501.9520 ####[facility] [address] [place], [address] Urea nitrogen [Mass/Vol] 5 mg/dL Normal 4-19 [facility] Comment on above: Performed By: #### L 100.0100, L300.3900, L500.4050, L501.5200, L501.9520 ####[facility] [address] [place], [address] Discharge Instructionon Discharge Instruction [facility] Medical Records Department [address] [place] [address] Instructions for Home/Discharge Instructions 02/19/25 1412 MR#: [id number] Acct: [id number] Name: AALIYAH CARDENAS Rep #: [id number] : 1980 44 From: Orlando Ordoñez DO PCP: Care Physician,No Primary Status:ADM IN Discharge Instructions DC O2, CPAP, BIPAP needs Home O2 Discharge instructions: No Dressing / Incision Discharge Activity: Return to Normal Activity Weight Bearing Status: Full weight bearing Follow Up Care Test Results: Test results from this visit will be discussed in further detail at your follow-up appointment, if applicable. Discharge Plan Admission Admit Date/Time: 02/18/25 16:51 Primary Reason for Your Visit: alcohol induced hepatitis Attending Provider: Orlando Ordoñez Primary Care Provider: Care Physician,No Primary Consulting Providers: Anselmo Guan; Josh Trotter; Yola Galo; Radha Sands; Gena Josue; Sanam Balderrama Instructions Additional Instructions / Restrictions: Avoid alcohol intake Discharge Orders/Prescriptions Prescriptions: New prednisone 20 mg tablet 20 mg PO BID Qty: 60 1RF Rx Instructions: begin tonite Continued omeprazole 20 mg tablet,delayed release (DR/EC) 20 mg PO DAILY Referrals / Follow Up: Josh Trotter DO [Med Staff - Active Staff] - See Referral Note (office will call you to schedule the appointment, call by this Tuesday if you don't hear from the office) Fadi Lawrence MD [STAFF PHYSICIAN] - In 1 Week (Have him recheck your liver enzymes) Care Physician,No Primary [Primary Care Provider] - Disposition Disposition (needs filled in before D/C Order can be placed): Home, Self Care 02/19/25 1422 Orlando Ordoñez DO CC: PRODUCT DEVELOPMENT COORDINATOR-C Yola Galo; PRODUCT DEVELOPMENT COORDINATOR-C Radha Sands; Dr. Sanam Balderrama MD; Dr. Anselmo Guan MD; LI Dias; No Primary Care Physician; Josh Trotter, Signed Normal [facility] Electrocardiogram reportOrde red By: Luca Ring on 02-19-2025 EKG study [facility] Cardiovascular Services [address] [place] [address] 12 Lead EKG 02/18/25 1332 MR#: [id number] Acct: [id number] Name: AALIYAH CARDENAS Rep #:[id number] : 1980 44 From: Luca renteria MD Attending Dr: Dr. Orlando Ordoñez DO Status: ADM IN Ordering Dr: Dragan Montiel ate: 02/18/25 Location: [facility]3 Sex: F C Admitted: 02/18/25 Test Reason : Blood Pressure : */* mmHG Vent. Rate : 103 BPM Atrial Rate : 103 BPM P-R Int : 126 ms QRS Dur : 66 ms QT Int : 362 ms P-R-T Axes : 53 26 -8 degrees QTcB Int : 474 ms Sinus tachycardia Nonspecific T wave abnormality Abnormal ECG Confirmed by Luca Ring ([id number]), television station manager SHARMAINE ENCISO ([id number]) on 02/19/2025 10:59:26 AM Referred By: Confirmed By: Luca Ring 02/19/251058 Date _ Luca Ring MD CC: Dr. Dragan Montiel DO; Dr. Orlando Ordoñez DO; No Primary Care Physician ~ Signed [facility] Other Phone: Eosinophil percentageOrdered By: Sanam Balderrama on 02-19-2025 Eosinophils/100 WBC (Bld) 2.5 % 0-5 [facility] Erythrocyte distribution wid th ratioOrdered By: Sanam Balderrama on 02-19-2025 Erythrocyte distribution width (RBC) [Ratio] 17.5 % High 11.6-14.6 [facility] Erythrocyte distribution wid th standard deviationOrdered By: Sanam Balderrama on 02-19-2025 Erythrocyte distribution width (RBC) [Ratio] 64.0 fl High 35.1-43.9 [facility] Glomerular filtration rate ( GFR) estimation/1.73 sq m using serum, plasma, or whole bOrdered By: Sanam Balderrama on 02-19-2025 GFR/1.73 sq M.predicted among non-blacks MDRD (S/P/Bld) [Vol rate/Area] 96 mL/min/{1.73_m2} >60 [facility] Comment on above: mL/min/1.73m2 CKD-EP I Creatinine Equation (2020) Hematocrit Auto (Bld) [Volum e fraction]Ordered By: Sanam Balderrama on 02-19-2025 Hematocrit (Bld) [Volume fraction] 30.6 % Low 37-47 [facility] Hemoglobin measurementOrdere d By: Sanam Balderrama on 02-19-2025 Hemoglobin (Bld) [Mass/Vol] 11.0 g/dL Low 12.0-15.0 [facility] Immature granulocytes/100 WB C Auto (Bld)Ordered By: Sanam Balderrama on 02-19-2025 Immature granulocytes/100 WBC (Bld) 0.700 % 0.0-0.9 [facility] Comment on above: IG% - Immature Granu locytes (promyelocytes, myelocytes and metamyelocytes) > 1% indicates that a LEFT SHIFT is Present. International normalized rat io (INR) calculationOrdered By: Sanam Balderrama on 02-19-2025 INR Coag (Bld) [Relative time] 1.2 {INR} [facility] Laboratory - Chemistry and C hemistry - challengeOrdered By: Sanam Balderrama on 02-19-2025 AST [Catalytic activity/Vol] 230 U/L High <32 [facility] MCV (mean corpuscular volume ) determinationOrdered By: Sanam Balderrama on 02-19-2025 MCV (RBC) [Entitic vol] 101.7 fL High 81-99 [facility] MR/CON.PCMFabián 02-19-2025 MR/CON.PCM.GI [facility] Medical Records Department [address] [place] [address] Consultation - GI 02/19/25 1735 MR#: [id number] Acct: [id number] Name: AALIYAH CARDENAS Rep #: [id number] : 1980 44 From: Josh Friend PCP: Care Physician,No Primary Status:DIS IN Location: [facility]3 [id number] HPI Consult Data Date of Consult: 02/19/25 HPI Narrative Reason for Consultation: Jaundice HPI Narrative: AALIYAH CARDENAS, is a 44 F who presents to the ER with abdominal and jaundice. She has a history of heavy, chronic alcohol consumption presents with a rapid onset of worsening jaundice over the past two weeks. Associated symptoms include anorexia, fatigue, weakness, nausea, and occasional vomiting. The patient's urine is darker and stools are cco in color. Her abdomen has become more distended recently, with associated tenderness. The patient has been drinking heavily for several years but reports abstaining in the days leading up to admission. She denies any hematemesis or coffee-ground emesis.she complains of fever, malaise, fatigue, anorexia, and weight loss. She also complains of new onset jaundice along with right upper quadrant abdominal pain and tenderness, abdominal distension, nausea, vomiting, dark urine, and light stools. She denies any episodes of confusion, altered mental status and seizures. She does admit to???proximal muscle weakness is noted. She patient reports heavy, long-standing alcohol use. Details of average daily consumption should be documented. She lives alone and reports recent stressors. There is no history of IV drug use or other risk factors for viral hepatitis at this time. Her white blood cell count is normal. However her liver enzymes and liver function tests are extremely elevated with a bilirubin of 10.6, AST of 400 and ALT at 150. INR is 1.2. Her BUN is 20 and creatinine is 1.0 US/Abdomen Limited IMPRESSION: 1. Somewhat limited exam. 2. Distended gallbladder with sludge. No biliary dilatation or definite evidence of acute cholecystitis. 3. Hepatomegaly with appearance of the parenchyma most frequently associated with hepatic steatosis or other chronic liver disease. Correlate with clinical and laboratory evaluation. CT/Abdomen/Pelvis W IV Cont ONLY IMPRESSION: 1. No acute or active inflammatory intra-abdominal pathology. 2. No evidence for acute cholecystitis or pancreatitis. No biliary ductal dilatation. 3. Hepatomegaly with severe fatty infiltration. Submucosal fat deposition throughout the colon presumably metabolic in nature and can be seen with insulin resistance. [facility] Alcohol abuse Depression Anxiety GERD (gastroesophageal reflux disease) Former smoker Home Medications ???Medication ???Instructions ???Recorded ???Last Taken ???Type omeprazole 20 mg tablet,delayed 20 mg PO DAILY 02/18/25 02/17/25 H istory release prednisone 20 mg tablet 20 mg PO BID #60 tabs 02/19/25 Unk nown Rx Allergy/AdvReac Type Severity Reaction Status Date / Time No Known Allergies Allergy Verified 02/18/25 12:56 Social History Smoking Status: Former smoker ROS Constitutional Constitutional: Denies fatigue, fever(s), poor appetite, weight gain or weight loss Gastrointestinal Gastrointestinal: Denies belching, bloating, change in bowel habits, change in stool character, chewing difficulty, coffee ground emesis, constipation, cramping, diarrhea, dyspepsia, dysphagia, early satiety, excessive flatus, fecal incontinence, heartburn, hematemesis, hematochezia, hemorrhoids, loose stools, melena, nausea, odynophagia, rectal bleeding, tenesmus, vomiting or weight changes Physical Exam Narrative General: Alert, oriented HEENT: Atraumatic, normocephalic Eyes: scleral icterus, normal conjunctiva, extraocular movements grossly intact Neck: Supple Respiratory: Clear to auscultation bilaterally, normal respiratory effort Cardiovascular: Regular rate and rhythm GI: Soft, somewhat tender to palpation more in epigastric to right upper quadrant without rebound, guarding, rigidity Extremities: No significant pitting edema Musculoskeletal: Moving all extremities Neuro: No overt focal neurological deficits Skin: No rashes appreciated Psych: Cooperative Const alert, oriented x3, no apparent distress and healthy appearing General Appearance: cooperative GI normal to inspection, nondistended, normoactive bowel sounds, soft to palpation, non-tender and non- distended Percussion: normal to percussion Rectal Exam: deferred Lab / Micro Data 02/19/25 05:15 02/19/25 05:15 Labs: Laboratory Results - last 24 hr 02/18/25 18:12: Lactic Acid 3.9 H* 02/19/25 05:15: WBC 7.3, RBC 3.01 L, Hgb 11.0 L, Hct 30.6 L, MCV 101.7 H, MCH 36.5 H, MCHC 35.9, RDW (more content not included)... Normal [facility] Magnesiumon 02-19-2025 Magnesium [Mass/Vol] 1.6 mg/dL Normal 1.5-2.2 [facility] Comment on above: Performed By: #### L 100.0100, L300.3900, L500.4050, L501.5200, L501.9520 ####[facility] [address] [place], [place], [address] Magnesium measurement (mass/ volume)Ordered By: Sanam Balderrama on 02-19-2025 Magnesium (Unsp spec) [Mass/Vol] 1.6 mg/dL 1.5-2.2 [facility] Mean corpuscular hemoglobin (MCH) determinationOrdered By: Sanam Balderrama on 02-19-2025 MCH (RBC) [Entitic mass] 36.5 pg High 27.0-32.0 [facility] Mean corpuscular hemoglobin concentration (MCHC) determinationOrdered By: Sanam Balderrama on 02-19-2025 MCHC (RBC) [Mass/Vol] 35.9 g/dL 32-36 [facility] Mean platelet volume determi nationOrdered By: Sanam Balderrama on 02-19-2025 Platelet mean volume (Bld) [Entitic vol] 10.6 fL 6.2-12.0 [facility] Monocyte percentageOrdered B y: Sanam Balderrama on 02-19-2025 Monocytes/100 WBC (Bld) 6.5 % 0-10 [facility] Neutrophil percentageOrdered By: Sanam Balderrama on 02-19-2025 Neutrophils/100 WBC (Bld) 80.2 % High 47-70 [facility] Nucleated red blood cell per centageOrdered By: Sanam Balderrama on 02-19-2025 Nucleated RBC/100 WBC (Bld) [Ratio] 0 % 0-5 [facility] Platelet countOrdered By: Li Balderrama on 02-19-2025 Platelets (Bld) [#/Vol] 170 10*3/uL 150-450 [facility] Potassium measurement (mass/ volume)Ordered By: Sanam Balderrama on 02-19-2025 Potassium (Unsp spec) [Mass/Vol] 3.5 mmol/L 3.3-5.1 [facility] Prothrombin Time w/INRon INR Coag (PPP) [Relative time] 1.2 {INR} Normal [facility] Comment on above: Performed By: #### L 100.0100, L300.3900, L500.4050, L501.5200, L501.9520 ####[facility] [address] [place], [address] PT Coag (PPP) [Time] 15.7 s High 11.7-14.9 [facility] Comment on above: Performed By: #### L 100.0100, L300.3900, L500.4050, L501.5200, L501.9520 ####[facility] [address] [place], [address] Prothrombin timeOrdered By: Sanam Balderrama on 02-19-2025 PT Coag (PPP) [Time] 15.7 s High 11.7-14.9 [facility] RBC Auto (Bld) [#/Vol]Ordere d By: Sanam Balderrama on 02-19-2025 RBC (Bld) [#/Vol] 3.01 10*6/uL Low 4.2-5.4 [facility] Serum creatinine measurement (mass/volume)Ordered By: Sanam Badlerrama on 02-19-2025 Creatinine [Mass/Vol] 0.77 mg/dL 0.70-1.20 [facility] Comment on above: Icterus present, Res ults may be affected. Serum globulin measurementOr dered By: Sanam Balderrama on 02-19-2025 Globulin (S) [Mass/Vol] 3.1 g/dL 2.2-4.2 [facility] Serum glucose measurement (m ass/volume)Ordered By: Sanam Balderrama on 02-19-2025 Glucose [Mass/Vol] 81 mg/dL 70-99 [facility] Serum or plasma alanine amador otransferase (ALT) measurementOrdered By: Sanam Balderrama on 02-19-2025 ALT [Catalytic activity/Vol] 71 U/L High <35 [facility] Serum or plasma albumin espinoza urement (mass/volume)Ordered By: Sanam Balderrama on 02-19-2025 Albumin [Mass/Vol] 3.0 g/dL Low 3.5-5.0 [facility] Serum or plasma albumin/glob ulin mass ratioOrdered By: Sanam Balderrama on 02-19-2025 Albumin/Globulin [Mass ratio] 1.0 {ratio} 0.9-2.4 [facility] Serum or plasma alkaline naveed sphatase measurementOrdered By: Sanam Balderrama on 02-19-2025 ALP [Catalytic activity/Vol] 308 U/L High 35-104 [facility] Serum or plasma calcium espinoza urement (mass/volume)Ordered By: Sanam Balderrama on 02-19-2025 Calcium [Mass/Vol] 7.9 mg/dL 7.6-11.0 [facility] Serum or plasma urea nitroge n measurement (mass/volume)Ordered By: Sanam Balderrama on 02-19-2025 Urea nitrogen [Mass/Vol] 5 mg/dL 4-19 [facility] Sodium levelOrdered By: Mayda Balderrama on 02-19-2025 Sodium [Moles/Vol] 135 mmol/L 133-145 [facility] TSH DL <= 0.005 mIU/L QnOrde red By: Sanam Balderrama on 02-19-2025 TSH Qn 7.250 uIU/mL High 0.300-4.200 [facility] Thyroid Stim Hormone (TSH)on 02-19-2025 TSH 7.250 uIU/mL High 0.300-4.200 [facility] Comment on above: Performed By: #### L 100.0100, L300.3900, L500.4050, L501.5200, L501.9520 ####[facility] [address] [place], [address] Total proteinOrdered By: Gracie Balderrama on 02-19-2025 Protein [Mass/Vol] 6.1 g/dL 5.9-8.4 [facility] White blood cell (WBC) count Ordered By: Sanam Balderrama on 02-19-2025 WBC (Bld) [#/Vol] 7.3 10*3/uL 4.4-11.0 [facility] 12 Lead EKGon 02-18-2025 12 Lead EKG [facility] Cardiovascular Services [address] [place] [address] 12 Lead EKG 02/18/25 1332 MR#: [id number] Acct: [id number] Name: AALIYAH CARDENAS DARINEL Rep #: [id number] : 1980 44 From: Luca Ring MD Attending Dr: Dr. Orlando Ordoñez DO Status: A DM IN Ordering Dr: Dragan Montiel DO Date: 5 Location: [facility] Sex: F C Admitted: 02/18/25 Test Reason : Blood Pressure : */* mmHG Vent. Rate : 103 BPM Atrial Rate : 103 BPM P-R Int : 126 ms QRS Dur : 66 ms QT Int : 362 ms P-R-T Axes : 53 26 -8 degrees QTcB Int : 474 ms Sinus tachycardia Nonspecific T wave abnormality Abnormal ECG Confirmed by Luca Ring ([id number]), television station manager SHARMAINE ENCISO ([id number]) on 02/19/2025 10:59:26 AM Referred By: Confirmed By: Luca Ring 02/19/25 105 Date Luca Ring MD CC: Dr. Dragan Montiel DO; Dr. Orlando Ordoñez DO; No Primary Care Physician Signed Normal [facility] Abdomen Limitedon 02-18-2025 Abdomen Limited [facility] Imaging Services [address] [place] [address] Abdomen Limited MR#: [id number] Acct: [id number] Name: AALIYAH CARDENASN Rep #: [id number] : 1980 F 44 From: Orlando Recinos MD PCP: Care Physician,No Primary Status: REG ER Study: Abdomen Limited Date of Exam: 02/18/25 Exam# [id number] Ordering Dr: Dragan Montiel DO PROCEDURE: ABDOMEN [...] 4. Additional description as above. Reading Location: [facility] CC: Dr. Dragan Montiel DO; No Primary Care Physician Consumer Marketing Analyst: Signed Normal [facility] Abdomen/Pelvis W IV Cont ONL Yon 02-18-2025 Abdomen/Pelvis W IV Cont ONLY [facility] Imaging Services [address] [place] [address] Abdomen/Pelvis W IV Cont ONLY MR#: [id number] Acct: [id number] Name: AALIYAH CARDENAS Rep #: [id number] : 1980 F 44 From: Shahab Ojeda MD PCP: Care Physician,No Primary Status: REG ER Study: Abdomen/Pelvis W IV Cont ONLY Date of Exam: Exam# [id number] Ordering Dr: Dragan Montiel DO PROCEDURE: CT ABDOMEN/PELVIS W IV CONT ONLY 02/18/2025 REASON FOR EXAM: RIGHT UPPER QUADRANT ABDOMINAL PAIN TECHNIQUE: Procedure Code: CTABDPELIV Modality: CT Procedure: ABDOMEN/PELVIS W IV CONT ONLY Coronal and Sagittal reconstruction series were provided. One or more dose reduction techniques were used (e.g., Automated exposure control, adjustment of the mA and/or kV according to patient size, use of iterative reconstruction technique. RADIATION DOSE SUMMARY: DLP: 1266.91 mGycm COMPARISON: Abdominal ultrasound same day 02/18/2025. FINDINGS: Lung bases: Clear. Liver: Hepatomegaly with severe hepatic steatosis. No focal lesion. Gallbladder: Unremarkable. No biliary ductal dilatation or pericholecystic inflammation. Spleen: Normal size and morphology. Pancreas: Unremarkable. Adrenals: Unremarkable. Kidneys: Unremarkable. No urolithiasis or hydronephrosis. Bladder: Unremarkable. Reproductive Organs: Grossly normal. Bilateral tubal ligation clips. Bowel: No evidence of bowel obstruction or active inflammatory process. Normal appendix. Diffuse submucosal fatty infiltration of the colon, likely metabolic such as with insulin resistance. Lymph nodes: No enlarged abdominopelvic lymph nodes. Vasculature: Major vascular structures are patent, normal in course and caliber. Peritoneum / Retroperitoneum: No significant ascites or free air. Bones: No significant abnormality. CT/Abdomen/Pelvis W IV Cont ONLY IMPRESSION: 1. No acute or active inflammatory intra-abdominal pathology. 2. No evidence for acute cholecystitis or pancreatitis. No biliary ductal dilatation. 3. Hepatomegaly with severe fatty infiltration. Submucosal fat deposition throughout the colon presumably metabolic in nature and can be seen with insulin resistance. Reading Location: [facility] CC: Dr. Dragan Montiel, DO; No Primary Care Physician Consumer Marketing Analyst: Signed Normal [facility] Absolute lymphocyte countOrd ered By: Dragan Montiel on 02-18-2025 Lymphocytes Auto (Unsp spec) [#/Vol] 0.76 10*3/uL Low 0.83-4.51 [facility] Absolute neutrophil countOrd ered By: Dragan Montiel on 02-18-2025 Neutrophils (Bld) [#/Vol] 8.3 10*3/uL High 2.0-7.7 [facility] Alcohol, Blood (Medical)-Ser umon 02-18-2025 SERUM ETOH < 10.1 Normal <=10.0 [facility] Comment on above: Result Comment: This test is for medical purposes only. The legal definition of intoxication varies according to local law. Performed By: #### L 501.9100 ####[facility] [address] [place], [address] Ammoniaon 02-18-2025 Ammonia (P) [Moles/Vol] 49.1 umol/L Normal 11-51 [facility] Comment on above: Performed By: #### L 300.3900, L503.5510 ####[facility] [address] [place], [address] Anion gap in Serum or Plasma Ordered By: Ann Klein Forensic CenterKenneth on 02-18-2025 Anion gap [Moles/Vol] 15 mmol/L 5-15 [facility] Automated lymphocyte count a s percentage of total leukocytesOrdered By: Dragan Montiel on 02-18-2025 Lymphocytes/100 WBC Auto (Unsp spec) 7.7 % Low 19-41 [facility] BUN/creatinine ratioOrdered By: [facility] on 02-18-2025 Urea nitrogen/Creatinine [Mass ratio] 6.0 mg/mg Low 10-20 [facility] Basic Metabolic Profile (BMP )on 02-18-2025 BUN/CRE 6.0 RATIO Low 10-20 [facility] Comment on above: Performed By: #### L 500.2500, L500.3400, L100.0100, L501.2450, L503.6005 ####[facility] [address] [place], [address] Calcium [Mass/Vol] 9.2 mg/dL Normal 7.6-11.0 [facility] Comment on above: Performed By: #### L 500.2500, L500.3400, L100.0100, L501.2450, L503.6005 ####[facility] [address] [place], [address] Chloride [Moles/Vol] 92 mmol/L Low 98-108 [facility] Comment on above: Performed By: #### L 500.2500, L500.3400, L100.0100, L501.2450, L503.6005 ####[facility] [address] [place], [address] CO2 [Moles/Vol] 26.7 mmol/L Normal 21.0-32.0 [facility] Comment on above: Performed By: #### L 500.2500, L500.3400, L100.0100, L501.2450, L503.6005 ####[facility] [address] [place], [address] Creatinine [Mass/Vol] 0.87 mg/dL Normal 0.70-1.20 [facility] Comment on above: Result Comment: Icte sabiha present, Results may be affected. Performed By: #### L 500.2500, L500.3400, L100.0100, L501.2450, L503.6005 ####[facility] [address] [place], [address] ECRCL 87.26 ml/min Normal 50-250 [facility] Comment on above: Performed By: #### L 500.2500, L500.3400, L100.0100, L501.2450, L503.6005 ####[facility] [address] [place], [address] GAP 15 Normal 5-15 [facility] Comment on above: Performed By: #### L 500.2500, L500.3400, L100.0100, L501.2450, L503.6005 ####[facility] [address] [place], [address] GFR/1.73 sq M.predicted among non-blacks MDRD (S/P/Bld) [Vol rate/Area] 84 mL/min/{1.73_m2} Normal >60 [facility] Comment on above: Result Comment: mL/m in/1.73m2 CKD-EPI Creatinine Equation (2020) Performed By: #### L 500.2500, L500.3400, L100.0100, L501.2450, L503.6005 ####[facility] [address] [place], [address] Glucose [Mass/Vol] 120 mg/dL High 70-99 [facility] Comment on above: Performed By: #### L 500.2500, L500.3400, L100.0100, L501.2450, L503.6005 ####[facility] [address] [place], [address] Potassium [Moles/Vol] 3.2 mmol/L Low 3.3-5.1 [facility] Comment on above: Performed By: #### L 500.2500, L500.3400, L100.0100, L501.2450, L503.6005 ####[facility] [address] [place], [address] Sodium [Moles/Vol] 135 mmol/L Normal 133-145 [facility] Comment on above: Performed By: #### L 500.2500, L500.3400, L100.0100, L501.2450, L503.6005 ####[facility] [address] [place], [address] Urea nitrogen [Mass/Vol] 5 mg/dL Normal 4-19 [facility] Comment on above: Performed By: #### L 500.2500, L500.3400, L100.0100, L501.2450, L503.6005 ####[facility] [address] [place], [address] Basophil percentageOrdered B y: Dragan Montiel on 02-18-2025 Basophils/100 WBC (Bld) 1.0 % 0-1 [facility] Bilirubin Test strip Ql (U)O rdered By: Dragan Montiel on 02-18-2025 Bilirubin Ql (U) 6 mg/dL High Negative [facility] Comment on above: COLOR OF URINE MAY A FFECT DIPSTICK RESULTS. Bilirubin directOrdered By: Dragan Montiel on 02-18-2025 Bilirubin.direct [Mass/Vol] 6.81 mg/dL High 0.00-0.30 [facility] Bilirubin, totalOrdered By: Dragan Montiel on 02-18-2025 Bilirubin [Mass/Vol] 10.30 mg/dL High 0.00-1.30 [facility] CBC W/Diff, Automatedon Absolute Lymph 0.76 X10 3/uL Low 0.83-4.51 [facility] Comment on above: Performed By: #### L 500.2500, L500.3400, L100.0100, L501.2450, L503.6005 ####[facility] [address] [place], [address] Absolute Neut 8.3 X10 3/uL High 2.0-7.7 [facility] Comment on above: Performed By: #### L 500.2500, L500.3400, L100.0100, L501.2450, L503.6005 ####[facility] [address] [place], [address] Basophils/100 WBC (Bld) 1.0 % Normal 0-1 [facility] Comment on above: Performed By: #### L 500.2500, L500.3400, L100.0100, L501.2450, L503.6005 ####[facility] [address] [place], [address] Eosinophils/100 WBC (Bld) 1.0 % Normal 0-5 [facility] Comment on above: Performed By: #### L 500.2500, L500.3400, L100.0100, L501.2450, L503.6005 ####[facility] [address] [place], [address] Erythrocyte distribution width (RBC) [Ratio] 17.3 % High 11.6-14.6 [facility] Comment on above: Performed By: #### L 500.2500, L500.3400, L100.0100, L501.2450, L503.6005 ####[facility] [address] [place], [address] Hematocrit (Bld) [Volume fraction] 38.3 % Normal 37-47 [facility] Comment on above: Performed By: #### L 500.2500, L500.3400, L100.0100, L501.2450, L503.6005 ####[facility] [address] [place], [address] Hemoglobin (Bld) [Mass/Vol] 13.8 g/dL Normal 12.0-15.0 [facility] Comment on above: Performed By: #### L 500.2500, L500.3400, L100.0100, L501.2450, L503.6005 ####[facility] [address] [place], [address] IG% 0.500 Normal 0.0-0.9 [facility] Comment on above: Result Comment: IG% - Immature Granulocytes (promyelocytes, myelocytes and metamyelocytes) > 1% indicates that a LEFT SHIFT is Present. Performed By: #### L 500.2500, L500.3400, L100.0100, L501.2450, L503.6005 ####[facility] [address] [place], [address] Lymphocytes/100 WBC (Bld) 7.7 % Low 19-41 [facility] Comment on above: Performed By: #### L 500.2500, L500.3400, L100.0100, L501.2450, L503.6005 ####[facility] [address] [place], [address] MCH (RBC) [Entitic mass] 36.2 pg High 27.0-32.0 [facility] Comment on above: Performed By: #### L 500.2500, L500.3400, L100.0100, L501.2450, L503.6005 ####[facility] [address] [place], [address] MCHC (RBC) [Mass/Vol] 36.0 g/dL Normal 32-36 [facility] Comment on above: Performed By: #### L 500.2500, L500.3400, L100.0100, L501.2450, L503.6005 ####[facility] [address] [place], [address] MCV (RBC) [Entitic vol] 100.5 fL High 81-99 [facility] Comment on above: Performed By: #### L 500.2500, L500.3400, L100.0100, L501.2450, L503.6005 ####[facility] [address] [place], [address] Monocytes/100 WBC (Bld) 6.0 % Normal 0-10 [facility] Comment on above: Performed By: #### L 500.2500, L500.3400, L100.0100, L501.2450, L503.6005 ####[facility] [address] [place], [address] Neutrophils/100 WBC (Bld) 83.8 % High 47-70 [facility] Comment on above: Performed By: #### L 500.2500, L500.3400, L100.0100, L501.2450, L503.6005 ####[facility] [address] [place], [address] Nucleated RBC (Bld) [#/Vol] 0 10*3/uL Normal 0-5 [facility] Comment on above: Performed By: #### L 500.2500, L500.3400, L100.0100, L501.2450, L503.6005 ####[facility] [address] [place], [address] Platelet mean volume (Bld) [Entitic vol] 10.1 fL Normal 6.2-12.0 [facility] Comment on above: Performed By: #### L 500.2500, L500.3400, L100.0100, L501.2450, L503.6005 ####[facility] [address] [place], [address] Platelets (Bld) [#/Vol] 196 10*3/uL Normal 150-450 [facility] Comment on above: Performed By: #### L 500.2500, L500.3400, L100.0100, L501.2450, L503.6005 ####[facility] [address] [place], [address] RBC (Bld) [#/Vol] 3.81 10*6/uL Low 4.2-5.4 [facility] Comment on above: Performed By: #### L 500.2500, L500.3400, L100.0100, L501.2450, L503.6005 ####[facility] [address] [place], [address] RDW SD 63.7 fl High 35.1-43.9 [facility] Comment on above: Performed By: #### L 500.2500, L500.3400, L100.0100, L501.2450, L503.6005 ####[facility] [address] [place], [address] WBC (Bld) [#/Vol] 9.9 10*3/uL Normal 4.4-11.0 [facility] Comment on above: Performed By: #### L 500.2500, L500.3400, L100.0100, L501.2450, L503.6005 ####[facility] [address] [place], [address] Carbon dioxide, total [Moles /volume] in Central venous bloodOrdered By: Dragan Montiel on 02-18-2025 CO2 [Moles/Vol] 26.7 mmol/L 21.0-32.0 [facility] Chloride assayOrdered By: Kobe Montiel on 02-18-2025 Chloride [Moles/Vol] 92 mmol/L Low 98-108 [facility] Emergency Department Summary on 02-18-[address] [facility] Medical Records Department [address] [place] [address] Emergency Department Summary 02/18/25 MR#: [id number] Acct: [id number] Name: AALIYAH CARDENAS Rep #: [id number] : 1980 44 From: Dragan Montiel DO [...] intact Psych: Cooperative, appropriate mood and affect PFSH PFS Home Medications ???Medication ???Instructions ???Recorded ???Last [...] is pe (more content not included)... Normal [facility] Eosinophil percentageOrdered By: Dragan Montiel on 02-18-2025 Eosinophils/100 WBC (Bld) 1.0 % 0-5 [facility] Erythrocyte distribution wid th ratioOrdered By: [place] Dinesh on 02-18-2025 Erythrocyte distribution width (RBC) [Ratio] 17.3 % High 11.6-14.6 [facility] Erythrocyte distribution wid th standard deviationOrdered By: Dragan Tonja Paul on 02-18-2025 Erythrocyte distribution width (RBC) [Ratio] 63.7 fl High 35.1-43.9 [facility] Glomerular filtration rate ( GFR) estimation/1.73 sq m using serum, plasma, or whole bOrdered By: Dragan Montiel on 02-18-2025 GFR/1.73 sq M.predicted among non-blacks MDRD (S/P/Bld) [Vol rate/Area] 84 mL/min/{1.73_m2} >60 [facility] Comment on above: mL/min/1.73m2 CKD-EP I Creatinine Equation (2020) H AND P Exam - [facility] 02-18-2025 H&P Exam - Hospitalist [facility] Medical Records Department [address] [place] [address] H P Exam - Hospitalist 02/18/25 1651 MR#: [id number] Acct: [id number] Name: AALIYAH CARDENAS Rep #: [id number] : 1980 44 From: Sanam Balderrama MD PCP: Care Physician,No Primary Status:REG ER Location: ED HPI - General General Date of Admission: 02/18/25 Date of Service: 02/18/25 Chief Complaint: Abd pain, poor PO intake HPI Narrative AALIYAH CARDENAS, is a 44-year-old female history of alcohol abuse and GERD presented to [facility] ED 02/18/2025 for dysuria and right upper quadrant abdominal pain over the past several weeks but have worsened further over the past 5 days. also states he noticed yellow discoloration of her eyes for the past week. Patient drinks a bottle of liquor every few days but does not think she is an alcoholic. Does endorse some abdominal bloating decreased p.o. intake. In the ED temp 98.2, heart rate initially 125 with a blood pressure 148/98, respiratory rate 16 pulse ox 100% on room air. CBC with white blood cell count 9.9, hemoglobin 13.8. BMP with potassium of 3.2 and a glucose of 120, INR 1.2 and lipase of 42. Liver profile did reveal a total bili of 10.3 with a direct bili 6.81, AST 324, ALT 100 and alk phos 426, alcohol level negative and ammonia 49. Lactic acid 3.3 and UA with bacteria, occult blood, 10-25 white blood cells but negative nitrite negative leuk esterase. Abdominal ultrasound somewhat limited but showed distended gallbladder with sludge with no definitive evidence of acute cholecystitis, also noted hepatomegaly with appearance of parenchyma most frequently associated with hepatic steatosis or other chronic liver diseases. ED physician contacted GI who felt that this was likely a manifestation of her alcohol abuse, recommended CT abdomen pelvis with IV contrast just to get baseline and better look at liver and to admit patient, did not think the MRCP was necessary at this time. Patient given Zosyn due to abnormal UA and significant elevation of her direct bili and total bili and hospitalist contacted for admission. Patient evaluated bedside. She reports several weeks of increasing right upper quadrant pain worsened over the past 3 to 5 days with yellowing of her eyes over the past 3 days and poor p.o. intake for a couple of weeks with nausea if she tries to eat at all, denies diarrhea and has been constipated, notes the pain in her abdomen is a pressure and is somewhat better if she just sits there but is worse if she tries to move or do any other activities so she has not been doing much in general. Does drink usually daily and will drink peach [place], bottle lasts her about 2 days. Denies any history of withdrawal seizures or DTs. Used to smoke but has subsequently quit smoking recently and now only have a cigarette occasionally. Denies cough or fever but has been having little bit of shortness of breath since she began having the abdominal pain. Dysuria has been present over the past week or 2 as well PFSH Home Medications ???Medication ???Instructions ???Recorded ???Last Taken ???Type omeprazole 20 mg tablet,delayed 20 mg PO DAILY 02/18/25 02/17/25 H istory release Allergy/AdvReac Type Severity Reaction Status Date / Time No Known Allergies Allergy Verified 02/18/25 12:56 Social History Smoking Status: Never smoker ROS ROS Narrative General: Denies fever/chills HENT: Denies headache, denies stuffy nose, denies sore throat EYES: Denies changes in vision Resp: Denies cough, some shortness of breath Cardiac: Denies chest pain GI: Right upper abdominal pressure, some constipation, poor p.o. with nausea if she tries to eat : Some burning on urination Extremity: Has had problems with intermittent swelling in her legs since at least last summer MSK: Feels generally weak and fatigued Neuro: Denies any numbness/tingling Heme: Denies any bleeding or bruising, does have the yellowing of sclera Skin: Denies rashes Psychiatric: No complaints voiced Vital Signs Vital Signs Vital Signs: 02/18/25 12:54 02/18/25 12:56 02/18/25 [...] 98 98 Oxygen Delivery Method Room Air Weight Weight: 85.531 kg Body Mass Index (BMI) 31.4 Physical Exam Narrative General: Alert, oriented HEENT: Atraumatic, normoc (more content not included)... Normal [facility] Hematocrit Auto (Bld) [Volum e fraction]Ordered By: Dragan Montiel on 02-18-2025 Hematocrit (Bld) [Volume fraction] 38.3 % 37-47 [facility] Hemoglobin measurementOrdere d By: Dragan Montiel on 02-18-2025 Hemoglobin (Bld) [Mass/Vol] 13.8 g/dL 12.0-15.0 [facility] Immature granulocytes/100 WB C Auto (Bld)Ordered By: Dragan Montiel on 02-18-2025 Immature granulocytes/100 WBC (Bld) 0.500 % 0.0-0.9 [facility] Comment on above: IG% - Immature Granu locytes (promyelocytes, myelocytes and metamyelocytes) > 1% indicates that a LEFT SHIFT is Present. International normalized rat io (INR) calculationOrdered By: Dragan Montiel on 02-18-2025 INR Coag (Bld) [Relative time] 1.2 {INR} [facility] Ketones Test strip Ql (U)Ord ered By: Dragan Montiel on 02-18-2025 Ketones Ql (U) 5 mg/dl High Negative [facility] Laboratory - Chemistry and C hemistry - challengeOrdered By: Dragan Montiel on 02-18-2025 AST [Catalytic activity/Vol] 324 U/L High <32 [facility] Lactic Acidon 02-18-2025 Lactate [Moles/Vol] 3.9 mmol/L Invalid Interpretation Code 0.0-2.0 [facility] Comment on above: Result Comment: Crit ical Result(s) Called at: 1858 by:??CEM SIU TO DAVID MORGAN Results read back by same. Performed By: #### L 503.6005 #### [facility] Laboratory [address] [place], [place], [id number] Lactate [Moles/Vol] 3.3 mmol/L Invalid Interpretation Code 0.0-2.0 [facility] Comment on above: Order Comment: Y Result Comment: Crit ical Result(s) Called at 02/18/2025-14:20 by Donavan Watson.??Results read back by same. Performed By: #### L 500.2500, L500.3400, L100.0100, L501.2450, L503.6005 ####[facility] [address] [place], [place], [id number] Lactic acid measurementOrder ed By: Dragan Montiel on 02-18-2025 Lactate [Moles/Vol] 3.9 mmol/L High 0.0-2.0 [facility] Comment on above: Critical Result(s) C alled at: 9 by: CEM MORGAN Results read back by same. Lactate [Moles/Vol] 3.3 mmol/L High 0.0-2.0 [facility] Comment on above: Critical Result(s) C alled at 02/18/2025-14:20 by Donavan Watson. Results read back by same. Lipaseon 02-18-2025 Lipase [Catalytic activity/Vol] 42 U/L Normal 13-75 [facility] Comment on above: Result Comment: Marlon hanley note: LIPASE revised reference range effective 22. New Lipase methodology. Expected to produce lower values than the previous assay method. NEW Reference Range: 13 - 75 U/L Performed By: #### L 500.2500, L500.3400, L100.0100, L501.2450, L503.6005 ####[facility] [address] [place], [address] Lipase measurementOrdered By : Dragan Montiel on 02-18-2025 Lipase [Catalytic activity/Vol] 42 U/L 13-75 [facility] Comment on above: Please note:LIPASE r evised reference range effective 22. New Lipase methodology. Expected to produce lower values than the previous assay method. NEW Reference Range: 13 - 75 U/L Liver Profileon 02-18-2025 Albumin [Mass/Vol] 3.7 g/dL Normal 3.5-5.0 [facility] Comment on above: Performed By: #### L 500.2500, L500.3400, L100.0100, L501.2450, L503.6005 ####[facility] [address] [place], [address] ALK PHOS 426 U/L High 35-104 [facility] Comment on above: Performed By: #### L 500.2500, L500.3400, L100.0100, L501.2450, L503.6005 ####[facility] [address] [place], [address] ALT [Catalytic activity/Vol] 100 U/L High <=34 [facility] Comment on above: Performed By: #### L 500.2500, L500.3400, L100.0100, L501.2450, L503.6005 ####[facility] [address] [place], [address] AST [Catalytic activity/Vol] 324 U/L High <=31 [facility] Comment on above: Performed By: #### L 500.2500, L500.3400, L100.0100, L501.2450, L503.6005 ####[facility] [address] [place], [address] Bilirubin [Mass/Vol] 10.30 mg/dL High 0.00-1.30 [facility] Comment on above: Performed By: #### L 500.2500, L500.3400, L100.0100, L501.2450, L503.6005 ####[facility] [address] [place], [address] Bilirubin.direct [Mass/Vol] 6.81 mg/dL High 0.00-0.30 [facility] Comment on above: Performed By: #### L 500.2500, L500.3400, L100.0100, L501.2450, L503.6005 ####[facility] [address] [place], [address] Globulin (S) [Mass/Vol] 4.3 g/dL High 2.2-4.2 [facility] Comment on above: Performed By: #### L 500.2500, L500.3400, L100.0100, L501.2450, L503.6005 ####[facility] [address] [place], [address] T PROT 8.0 g/dL Normal 5.9-8.4 [facility] Comment on above: Performed By: #### L 500.2500, L500.3400, L100.0100, L501.2450, L503.6005 ####[facility] [address] [place], [address] MCV (mean corpuscular volume ) determinationOrdered By: Dragan Montiel on 02-18-2025 MCV (RBC) [Entitic vol] 100.5 fL High 81-99 [facility] Mean corpuscular hemoglobin (MCH) determinationOrdered By: Dragan Montiel on 02-18-2025 MCH (RBC) [Entitic mass] 36.2 pg High 27.0-32.0 [facility] Mean corpuscular hemoglobin concentration (MCHC) determinationOrdered By: Dragan Motniel on 02-18-2025 MCHC (RBC) [Mass/Vol] 36.0 g/dL 32-36 [facility] Mean platelet volume determi nationOrdered By: Dragan Montiel on 02-18-2025 Platelet mean volume (Bld) [Entitic vol] 10.1 fL 6.2-12.0 [facility] Microscopic analysis of urin e for red blood cells (RBC)Ordered By: Dragan Montiel on 02-18-2025 Microscopic analysis of urine for red blood cells (RBC) 0 SEEN /hpf 0-5 [facility] Monocyte percentageOrdered B y: Dragan Montiel on 02-18-2025 Monocytes/100 WBC (Bld) 6.0 % 0-10 [facility] Mucus LM Ql (Urine sed)Order ed By: Dragan Montiel on 02-18-2025 Mucus Ql (Urine sed) 0 SEEN /hpf [facility] Neutrophil percentageOrdered By: Dragan Montiel on 02-18-2025 Neutrophils/100 WBC (Bld) 83.8 % High 47-70 [facility] Nitrite Test strip Ql (U)Ord ered By: Dragan Montiel on 02-18-2025 Nitrite Ql (U) Negative Negative [facility] No Panel InformationOrdered By: Sanam Balderrama on 02-18-2025 Hepatitis C Antibody Comment Comment . [facility] Comment on above: Not infected with HC V unless early or acute infection issuspected (which may be delayed in an immunocompromisedindividual), or other evidence exists to indicate HCVinfection.Performed at: - [address] [id number] Director: Gato Carrillo PhD, Phone: [phone] Nucleated red blood cell per centageOrdered By: Dragan Montiel on 02-18-2025 Nucleated RBC/100 WBC (Bld) [Ratio] 0 % 0-5 [facility] Platelet countOrdered By: Kobe Montiel on 02-18-2025 Platelets (Bld) [#/Vol] 196 10*3/uL 150-450 [facility] [facility] Potassium measurement (mass/ volume)Ordered By: Dragan Montiel on 02-18-2025 Potassium (Unsp spec) [Mass/Vol] 3.2 mmol/L Low 3.3-5.1 [facility] Protein Test strip Ql (U)Ord ered By: Dragan Montiel on 02-18-2025 Protein Ql (U) 100 mg/dl High Negative [facility] Prothrombin Time w/INRon INR Coag (PPP) [Relative time] 1.2 {INR} Normal [facility] Comment on above: Performed By: #### L 300.3900, L503.5510 ####[facility] [address] [place], [address] PT Coag (PPP) [Time] 15.1 s High 11.7-14.9 [facility] Comment on above: Performed By: #### L 300.3900, L503.5510 ####[facility] [address] [place], [address] Prothrombin timeOrdered By: Dragan Montiel on 02-18-2025 PT Coag (PPP) [Time] 15.1 s High 11.7-14.9 [facility] RBC Auto (Bld) [#/Vol]Ordere d By: Dragan Montiel on 02-18-2025 RBC (Bld) [#/Vol] 3.81 10*6/uL Low 4.2-5.4 [facility] Serum creatinine measurement (mass/volume)Ordered By: Dragan Montiel on 02-18-2025 Creatinine [Mass/Vol] 0.87 mg/dL 0.70-1.20 [facility] Comment on above: Icterus present, Res ults may be affected. Serum globulin measurementOr dered By: Dragan Montiel on 02-18-2025 Globulin (S) [Mass/Vol] 4.3 g/dL High 2.2-4.2 [facility] Serum glucose measurement (m ass/volume)Ordered By: Dragan Montiel on 02-18-2025 Glucose [Mass/Vol] 120 mg/dL High 70-99 [facility] Serum or plasma alanine amador otransferase (ALT) measurementOrdered By: Dragan Montiel on 02-18-2025 ALT [Catalytic activity/Vol] 100 U/L High <35 [facility] Serum or plasma albumin espinoza urement (mass/volume)Ordered By: Dragan Paul on 02-18-2025 Albumin [Mass/Vol] 3.7 g/dL 3.5-5.0 [facility] Serum or plasma alkaline naveed sphatase measurementOrdered By: Dragan Montiel on 02-18-2025 ALP [Catalytic activity/Vol] 426 U/L High 35-104 [facility] Serum or plasma calcium espinoza urement (mass/volume)Ordered By: Dragan Paul on 02-18-2025 Calcium [Mass/Vol] 9.2 mg/dL 7.6-11.0 [facility] Serum or plasma ethanol espinoza urement (mass/volume)Ordered By: Dragan Paul on 02-18-2025 Ethanol [Mass/Vol] mg/dL <10.1 [facility] Comment on above: This test is for med ical purposes only. The legal definition of intoxication varies according to local law. Serum or plasma hepatitis B virus surface antigen detection by immunoassayOrdered By: Sanam Balderrama on 02-18-2025 HBV surface Ag IA Ql Negative Negative [facility] Serum or plasma urea nitroge n measurement (mass/volume)Ordered By: Dragan Montiel on 02-18-2025 Urea nitrogen [Mass/Vol] 5 mg/dL 4-19 [facility] Sodium levelOrdered By: Mejia Montiel on 02-18-2025 Sodium [Moles/Vol] 135 mmol/L 133-145 [facility] Squamous epithelial cells de tection in urine sediment by light microscopyOrdered By: Dragan Montiel on 02-18-2025 Epithelial cells.squamous LM Ql (Urine sed) 5-10 SEEN /hpf 5-10 [facility] Total proteinOrdered By: Florencio Montiel on 02-18-2025 Protein [Mass/Vol] 8.0 g/dL 5.9-8.4 [facility] Urinalysis, Completeon 02-18 BACTERIA 3+ /hpf Normal None Seen [facility] Comment on above: Order Comment: CLEAN CATCH Performed By: #### L 400.0001 ####[facility] [address] [place], [address] EPI,SQUAMOUS 5-10 SEEN Normal 5-10 [facility] Comment on above: Order Comment: CLEAN CATCH Performed By: #### L 400.0001 ####[facility] [address] [place], [address] WBC 10-25 SEEN Normal 0-5 [facility] Comment on above: Order Comment: CLEAN CATCH Performed By: #### L 400.0001 ####[facility] [address] [place], [address] Mucus Ql (Urine sed) 0 SEEN Normal [facility] Comment on above: Order Comment: CLEAN CATCH Performed By: #### L 400.0001 ####[facility] [address] [place], [address] RBC 0 SEEN Normal 0-5 [facility] Comment on above: Order Comment: CLEAN CATCH Performed By: #### L 400.0001 ####[facility] [address] [place], [address] Urine clarityOrdered By: Florencio Montiel on 02-18-2025 Clarity (U) Turbid Clear [facility] Urine color determinationOrd ered By: Dragan Montiel on 02-18-2025 Color (U) SEE COMMENT BELOW Yellow [facility] Comment on above: Visual Urine Color: ORANGE Urine cultureOrdered By: Florencio Montiel on 02-18-2025 Bacteria identified Cx Nom (U) Alpha hemolytic organism Abnormal [facility] Urine glucose detectionOrder ed By: Dragan Montiel on 02-18-2025 Glucose Ql (U) Normal mg/dl Normal [facility] Urine leukocyte esterase det ection by dipstickOrdered By: Dragan Montiel on 02-18-2025 Leukocyte esterase Test strip Ql (U) Negative Negative [facility] Urine pHOrdered By: Dragan Cooper on 02-18-2025 pH (U) 5.0 [pH] 5.0 - 8.0 [facility] Urine sediment bacteria coun t by microscopy (number/high power field)Ordered By: Dragan Montiel on 02-18-2025 Bacteria LM.HPF (Urine sed) [#/Area] 3 /[HPF] None Seen [facility] Urine specific gravity measu rementOrdered By: Dragan Montiel on 02-18-2025 Specific gravity (U) [Rel density] 1.020 1.002-1.030 [facility] Urine urobilinogen measureme ntOrdered By: Dragan Montiel on 02-18-2025 Urobilinogen Ql (U) 12 mg/dl High Normal [facility] Venous blood ammonia measure mentOrdered By: Dragan Montiel on 02-18-2025 Ammonia (P) [Moles/Vol] 49.1 umol/L 11-51 [facility] White blood cell (WBC) count Ordered By: Dragan Montiel on 02-18-2025 WBC (Bld) [#/Vol] 9.9 10*3/uL 4.4-11.0 [facility] White blood cell countOrdere d By: Dragan Montiel on 02-18-2025 White blood cell count 10-25 SEEN /hpf 0-5 [facility] CNPNon 07-04-2023 CNPN Telephone ([facility]) AALIYAH SHERMAN ([id number]) 1980 F JAYLEN Date Time Provider Department 07/04/23 CONCEPCION GOFF During your visit today, we recorded the following information about you: Caty SeanMorisdi 07/04/2023 10:08 AM Signed Aaliyah is calling Concepcion Goff PA-C today to request a call to advise the lab results from the [facility] in clinic on 07/03/2023 Please call number below which has been verified Patient has been identified by name and birthdate. Duration of symptoms: days Person calling: self Call patient at: at home [phone] (home) Was an appointment scheduled: No Closing statement: Symptom Call: Thank you for calling [facility], your call is very important. A nurse will call in approximately 2-4 hours during business hours. If this is an emergency, please contact 911. Leann Byrne [facility] Ximena Huang APRN.CNP 07/04/2023 10:15 AM Signed Spoke to patient. [...] 11/23/2013 Depression, major (HCC) [F32.9] 11/23/2013 Dyspareunia [[id number]] 01/23/2014 Chronic pelvic pain in female [R10.2, G89.29] 01/23/2014 Encounter Status:Closed by XIMENA HUANG on 07/04/23 [facility] CNCOon 07-03-2023 CNCO Letter Text [facility] CNOVon 07-03-2023 CNOV Office Visit ([facility] ) AALIYAH SHERMAN ([id number]) 1980 F JAYLEN Date Time Provider Department 07/03/23 1:00 PM CONCEPCION GOFF During your visit today, we recorded the following information about you: Temperature Pulse Blood pressure Weight 98.5 degrees 85/minute 164/95 89.4 kg Concepcion Goff PA-C 07/03/2023 1:27 PM Signed Aaliyah Sherman is a 42 year old female with a complaint of cough, nasal congestion, rhinorrhea, fever up to 100.5, chills x 3 days. Works at [employer]. Diarrhea today. Had one episode of vomiting [...] AND RSV NAAT, ROUTINE [[id number]] Order #: [id number]. #:[id number] Prescriptions as of 07/03/2023 - buPROPion XL [...] 11/23/2013 Depression, major (HCC) [F32.9] 11/23/2013 Dyspareunia [[id number]] 01/23/2014 Chronic pelvic pain in female [R10.2, G89.29] 01/23/2014 Encounter Status:Closed by CONCEPCION GOFF on 07/03/[address] [facility] COVID AND INFLUENZA A/B AND RSV NAAT, ROUTINEon 07-03-2023 SARS-CoV-2 (COVID-19) RNA ELGIN+probe Ql (Unsp spec) COVID 19 RESULT: Not detected The method used is RT-PCR or an equivalent NAAT method. Reference Range (the expected result in uninfected individuals): Not detected INFLUENZA A PCR: Detected INFLUENZA B PCR: Not detected RSV PCR: Not detected Abnormal [facility] Comment on above: Performed By: #### C VFLRS #### [facility] CLIA [id number] [address] [place] [address] [place] Phone Noitavonnen 05-21-2021 Phone DripDrop - From: Elizabeth Sheffield To: Shirin Johnson; Sent: 04/30/2021 10:56:44 EST Subject: re [facility] 04[place]16 Pt is calling back, this is the first day of her period and she was told to call to get scheduled for IUD. No available appts. [phone] From: Shirin Johnson To: Elizabeth Sheffield; Sent: 04/30/2021 11:22:14 EST Subject: RE: re msg 04/16 Is patient aware to call back next month? From: Elizabeth Sheffield To: Shirin Johnson; Sent: 04/30/2021 12:54:55 EST Subject: RE: re msg 04/16 she was under the impression that Dr would fit her in to an appt, so I dont think she does From: Shirin Johnson To: [facility]; Sent: 04/30/2021 13:15:44 EST Subject: FW: re msg 04/16 I LVM for patient- Please push patient through to the office Patient has not returned call. Normal [facility] Amb Office-Progress Notes-Pr ovideron 04-19-2021 [...] 12/08/2020 Family History Breast cancer..: Grandmother. Normal [facility] Phone Msgon 04-16-2021 Phone Msg - From: Shirin Johnson To: [facility] [email or web address] Sent: 04/13/2021 09:06:40 EDT Subject: PA Will you please PA the patient for the Mirena for Dr. Betancourt From: Leandra Motta ([facility] [employer]) To: Shirin Johnson; Sent: 04/16/2021 13:36:53 EDT Subject: RE: PA Spoke with Erika and pt is covered under [employer] for insertion/removal. No copay. Calendar year benefits. REF# [id number] From: Shirin Johnson To: [facility] [employer] [facility]; Sent: 04/16/2021 15:50:51 EDT Subject: RE: PA Patient made aware and advised to call on the first day of her period to get her scheduled Normal [facility] Ambulatory Clinical Summaryo n 04-13-2021 Ambulatory Clinical Summary ROSALBA, AALIYAH :1980 Visit Date:04/13/2021 Ambulatory Visit Instructions Your Diagnosis Abnormal uterine bleeding (AUB) Menorrhagia Your Care Team Attending Physician - SERENA ARREDONDO Primary Care Physician - ADDIE FAMILY PHYSICIAN, 837 Procedures Performed Last pap [...] call to get immediate medical attention! 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 Findings reviewed with patient. _ Normal [facility] Comment on above: Order Comment: Order ed on Fin# [id number] Result Comment: Tech nologist: DM Dictated By: [...] 12/08/2020 Family History Breast cancer..: Grandmother. Normal [facility] SURGICAL PATH REPORTon 04-03 SURGICAL PATH REPORT [facility] Department of Pathology [address] [place] [address] Name: AALIYAH SHERMAN : 1980 [facility] [id number] Number: Gender: Female Location: [facility]. Admit 40 years Attending SERENA ARREDONDO Age: Provider: Ordering SERENA ARREDONDO Provider: Consulting: Surgical Pathology Report ACCESSION: COLLECTED DATE/TIME: RECEIVED DATE/TIME: PATHOLOGIST: [id number] 03/31/2021 10:40 EDT 04/01/2021 08:31 EDT MATTEO [...] one cassette. MP/ww 04/01/2021 Codes CPT CODE: 53536 Print Date/ 04/03/2021 16:09 EDT Number: Time: Normal [facility] Comment on above: Performed By: #### [id number] ####[facility] [id number] [place] [id number] Medical Director: Kristian Arellano MD [facility] Clinical Summary AALIYAH SHERMAN :1980 Visit Date:03/31/2021 Ambulatory Visit Instructions Your Diagnosis Abnormal uterine bleeding (AUB) Pre-procedure lab exam Tobacco use Tests Performed AMB Urine POC 6[address] US HYSTERSONOGRAPHY OFFICE READ -- Results Pending [...] for visit Day With Date Time Where [facility] Established Patient 2 Week Follow Up- Discuss Results Tuesday Serena Betancourt DO April 13, 2021 08:20 am EDT Sandra LEIJA Medications What How Much When Why Instructions Unchanged norethindrone (Aygestin 5 mg oral tablet) 1 Tabs Oral DAILY Abnormal uterine bleeding (AUB) Unchanged progesterone (Prometrium 100 mg oral capsule) 1 Capsules Oral AT BEDTIME Dysmenorrhea Test Results AMB Urine POC 59364 (03/31/2021) U beta hCG Ql - Negative [...] call to get immediate medical attention! Normal [facility] Phone Msgon 03-04-2021 Phone g - From: Jasmyne Leon RN To: Jasmyne Leon RN; Sent: 03/04/2021 10:57:29 EDT Pt notified of pap and hpv results- showed signs of BV but pt is not symptomatic Normal [facility] THIN PREP IMAGE SEND OUTon 0 02-28-2021 THIN PREP IMAGE SEND OUT See Report Normal [facility] Comment on above: Order Comment: Order ed on Fin# [id number] Performed By: #### C [id number] ####[facility] [address] [place], [place] [id number] Medical Director: Kristian Arellano MD GP HPVon 02-19-2021 GP HPV Negative Normal [facility] Comment on above: Order Comment: Order ed on Fin# [id number] Result Comment: This HPV assay is being performed via a second generation NAAT that utilizes target capture, turbo electric operator mediated amplification and dual kenetic assay technologies. Performed By: #### C [id number] #### [facility] Services [address] [place] [address] Pipe Buffer: Kristian Arellano MD Amb Office-Progress Notes-Pr ovideron 02-17-2021 Amb Office-Progress Notes-Provider Assessment/Plan 1. Well woman exam Z01.419 2. 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 Extremities: No clubbing, Cyanosis or edema [employer] EXAM: Breast exam: normal bilateral breast tissue, [...] no masses Pelvic muscles: normal muscle tauntness/support [employer] Additional Details Menstrual History Menstrual StatusMenarcheal Last Menstrual Osdbxs7912/25/2020 OB History History (2,0,0,2) # 1 Baby [...] 12/08/2020 Family History Breast cancer..: Grandmother. Normal [facility] Ambulatory Clinical Summaryo n 02-17-2021 Ambulatory Clinical Summary AALIYAH SHERMAN :1980 Visit Date:02/17/2021 Ambulatory Visit Instructions Your Diagnosis Well woman exam Abnormal uterine bleeding (AUB) Screening mammogram, encounter for Cervical cancer screening Menorrhagia Tobacco use Your Care Team Attending Physician - JOHNNA MARY-SERENA ADKINS Primary Care Physician - NO FAMILY PHYSICIAN, [...] for visit Day With Date Time Where [facility] - 40 POSS Tuesday Ultrasound - [facility] March 31, 2021 10:00 am EDT [facility]/ Endometrial Biopsy POSS Tuesday Serena Betancourt DO March 31, 2021 10:30 am EDT [facility]/ You Need to Schedule the Following Appointments GP HPV, ROUTINE, 02/17/2021, Specimen type: Cervical, Dx: Cervical cancer screening THIN PREP IMAGE SEND OUT, ROUTINE, 02/17/2021, Specimen type: L[employer]OR ASSEMBLER Spec, Dx: Cervical cancer screening MAMM DIGITAL SCRN BILATERAL, 02/17/2021, Routine, SCREENING, Screening mammogram, encounter for Medications What How Much When Why Instructions New norethindrone (Aygestin 5 mg oral tablet) 1 Tabs Oral DAILY Abnormal uterine bleeding (AUB) Pickup at [facility] Unchanged progesterone (Prometrium 100 mg oral capsule) 1 Capsules Oral AT BEDTIME Dysmenorrhea Pharmacy Information [facility]: [address] [place], [place] [id number] [phone] Allergies No Known Allergies No Known Medication [...] call to get immediate medical attention! Normal [facility] Amb Office-Progress Notes-Pr ovideron 12-12-2020 [...] and oriented x 3. Mood is normal. [employer] Additional Details Menstrual History Last Menstrual Gterkx3611/19/2020 OB History History (2,0,0,2) # 1 Baby [...] 12/08/2020 Family History Breast cancer..: Grandmother. Normal [facility] Ambulatory Clinical Summaryo n 12-08-2020 Ambulatory Clinical Summary AALIYAH SHERMAN :1980 Visit Date:12/08/2020 Ambulatory Visit Instructions Your [...] Capsules Oral AT BEDTIME Dysmenorrhea Pickup at [facility] Pharmacy Information [facility]: [address] [place], [place] [phone] Allergies No Known Medication Allergies Problems Historical [...] call to get immediate medical attention! Normal [facility] Vital Signs Date Time Vital Sign Value Performing Clinician Facility 02-28-2025 11:11-0400 Body height 165.[address] Dragan Montiel DO Work Phone: [facility] 02-28-2025 11:11-0400 Body mass index (BMI) [Ratio] 37.3 kg/m2 Dr. Dragan Montiel DO Work Phone: [facility] 02-28-2025 11:11-0400 Body temperature 97.9 [degF] Dr. Dragan Montiel DO Work Phone: [facility] 02-28-2025 11:11-0400 Body weight 101.[address] Dragan Montiel DO Work Phone: 4(444)650-299951 [place] [address] 02-28-2025 11:11-0400 Diastolic blood pressure 94 mm[Hg] Dr. Dragan Montiel DO Work Phone: 6(250)938-407751 [place] [address] 02-28-2025 11:11-0400 Heart rate 76 /min Dr. Dragan Montiel DO Work Phone: 4(986)834-310451 [place] [address] 02-28-2025 11:11-0400 Respiratory rate 16 /min Dr. Dragan Montiel DO Work Phone: 6(371)735-602151 [place] [address] 02-28-2025 11:11-0400 SaO2% (BldA) [Mass fraction] 98 % Dr. Dragan Montiel DO Work Phone: 4(144)483-482651 [place] [address] 02-28-2025 11:11-0400 Systolic blood pressure 151 mm[Hg] Dr. Dragan Montiel DO Work Phone: 7(215)729-892851 [place] [address] 02-19-2025 14:00-0400 Body temperature 97.3 [degF] Dr. Dragan Montiel DO Work Phone: 8(227)341-022351 [place] [address] 02-19-2025 14:00-0400 Diastolic blood pressure 81 mm[Hg] Dr. Dragan Montiel DO Work Phone: 7(326)191-946451 [place] [address] 02-19-2025 14:00-0400 Heart rate 80 /min Dr. Dragan Montiel DO Work Phone: 1(225)320-635451 [place] [address] 02-19-2025 14:00-0400 Respiratory rate 18 /min Dr. Dragan Montiel DO Work Phone: 3(796)413-516451 [place] [address] 02-19-2025 14:00-0400 SaO2% (BldA) [Mass fraction] 96 % Dr. Dragan Montiel DO Work Phone: 1(330)588-710451 [place] [address] 02-19-2025 14:00-0400 Systolic blood pressure 118 mm[Hg] Dr. Dragan Montiel DO Work Phone: 6(538)406-392951 [place] [address] 02-18-2025 17:39-0400 Body height 165.[address] Dragan Montiel DO Work Phone: 8(899)326-727351 [place] [address] 02-18-2025 17:39-0400 Body mass index (BMI) [Ratio] 34.2 kg/m2 Dr. Dragan Montiel DO Work Phone: 8(334)716-836431 [place] [address] 02-18-2025 17:39-0400 Body weight 93.[address] Dragan Montiel DO Work Phone: 4(710)381-651231 [place] [address] 02-18-2025 16:19-0400 Body temperature 98.8 [degF] Dr. Dragan Montiel DO Work Phone: 0(665)381-211551 [place] [address] 02-18-2025 16:19-0400 Diastolic blood pressure 74 mm[Hg] Dr. Dragan Montiel DO Work Phone: 7(246)793-388251 [place] [address] 02-18-2025 16:19-0400 Heart rate 92 /min Dr. Dragan Montiel DO Work Phone: 0(744)172-373651 [place] [address] 02-18-2025 16:19-0400 Respiratory rate 16 /min Dr. Dragan Montiel DO Work Phone: 8(129)095-296951 [place] [address] 02-18-2025 16:19-0400 SaO2% (BldA) [Mass fraction] 98 % Dr. Dragan Montiel DO Work Phone: 1(351)507-911051 [place] [address] 02-18-2025 16:19-0400 Systolic blood pressure 115 mm[Hg] Dr. Dragan Montiel DO Work Phone: [facility] 02-18-2025 12:54-0400 Body height 165.[address] Dragan Montiel DO Work Phone: [facility] 02-18-2025 12:54-0400 Body mass index (BMI) [Ratio] 31.4 kg/m2 Dr. Dragan Montiel DO Work Phone: [facility] 02-18-2025 12:54-0400 Body weight 85.[address] Dragan Montiel DO Work Phone: [facility] 07-03-2023 13:15-0500 Body temperature 98.49 [degF] Concepcion Goff PA-C Work Phone: [facility] 07-03-2023 13:15-0500 Body weight 89.35 kg Concepcion Qureshie PA-C Work Phone: [facility] 07-03-2023 13:15-0500 Diastolic blood pressure 95 mm[Hg] Concepcion Goff PA-C Work Phone: [facility] 07-03-2023 13:15-0500 Heart rate 85 /min Concepcion Qureshie PA-C Work Phone: [facility] 07-03-2023 13:15-0500 SaO2% (BldA) [Mass fraction] 100 % Concepcion Qureshie PA-C Work Phone: [facility] 07-03-2023 13:15-0500 Systolic blood pressure 164 mm[Hg] Concepcion Goff PA-C Work Phone: [facility] Encounters Encounter Date Encounter Type Care Provider Facility Start: 03-07-2025 ambulatory Radha Bain ty:[facility] Start: 03-05-2025 End: 03-05-2025 Patient encounter procedure Radha PHAN -[facility] Work Phone: Start: 03-05-2025 End: 03-05-[address] Dragan Montiel DO Work Phone: [facility] Start: 02-28-2025 End: 02-28-2025 Patient encounter procedure Radha PHAN -[facility] Work Phone: Start: 02-28-2025 End: 02-28-[address] Dragan Montiel DO Work Phone: [facility] Start: 02-19-2025 Non-patient / Non-visit Josh Trotter DO -[facility] Start: 02-19-2025 Non-patient / Non-visit Dr. Orlando Ordoñez DO [facility] Work Phone: Start: 02-18-2025 ambulatory No Primary Car e Physician Facility:[facility] Start: 02-18-2025 End: 02-19-2025 Evaluation and management of inpatient Dr. Sanam Balderrama MD -[facility] Surgical 3 Work Phone: Start: 07-03-2023 End: 07-03-2023 ambulatory Facility:[facility] Start: 07-03-2023 End: 07-03-2023 Patient encounter procedure Concepcion Goff PA-C Work Phone: [facility] Comment on above: Flu-like symptoms (P rimary Dx) Start: 11-19-2016 End: 11-19-2016 Emergency department patient visit KATTY ULLOA MD Facility:[facility] HEALTHCARE Procedures Date Procedure Procedure Detail Performing Clinician Start: 02-19-[address] Dragan Montiel DO Work Phone: Start: 02-18-2025 Hepatitis A virus an tibody, IgM type Dr. Dragan Montiel DO Work Phone: Comment on above: A negative anti-HAV IgM result suggests no recent orcurrent HAV infection. Start: 02-18-2025 Hepatitis B core ant ibody measurement, IgM type Dr. Dragan Montiel DO Work Phone: Start: 02-18-2025 Hepatitis C antibody measurement Dr. Dragan Montiel DO Work Phone: Start: 02-18-2025 Computed tomography of abdomen and pelvis with intravenous contrast Dr. Dragan Montiel DO Work Phone: Start: 02-18-2025 Urnls dip stick/tabl et reagent auto microscopy Dr. Dragan Montiel DO Work Phone: Start: 02-18-[address] Draagn Montiel DO Work Phone: Start: 02-18-[address] Dragan Montiel DO Work Phone: Start: 02-18-[address] Dragan Montiel DO Work Phone: Plan of Treatment Date Care Activity Detail Author Start: 03-05-2025 Ultrasonography of abdomen Abdomen L imited [facility] Start: 03-05-2025 US Abdomen limited [facility] Start: 02-19-2025 Patient discharge [facility] Start: 02-18-2025 Application of intermittent pneumatic compression device [facility] Start: 02-18-2025 Following clinical p athway protocol [facility] Start: 02-18-2025 Assessment of risk o f venous thromboembolism [facility] Start: 02-18-2025 Inhalation therapy procedure [facility] Start: 02-18-2025 Insertion of cathete r into peripheral vein [facility] Start: 02-18-2025 Providing care accor ding to standard [facility] Start: 02-18-2025 Provision of activit y privileges [facility] Start: 02-18-2025 Referral to gastroenterology service [facility] Start: 02-18-2025 [facility] Start: 02-18-2025 Verification routine [facility] Start: 02-18-2025 Admission procedure [facility] Start: 02-18-2025 Hospital admission, emergency, from emergency room, medical nature [facility] Start: 02-18-2025 [facility] Start: 02-18-2025 Bacteria identified in Urine by Culture Urine Culture [facility] Start: 08-07-2024 Urine microalbumin profile DTa P,Tdap,Td Vaccine (2 - Td or Tdap) [facility] Start: 02-18-2023 Influenza vaccination Influenza Vacc ine (#1) [facility] Start: 01-23-2019 Screening for malign ant neoplasm of cervix [facility] Start: 2018 Screening for malign ant neoplasm of breast Mammogram Screening [facility] Start: 08-07-2015 Pneumococcal vaccination Pneum ococcal Vaccine (2 of 2 - PCV) [facility] Start: 1996 Hepatitis C screening Hepatitis C Sc reening [facility] Start: 1996 HIV screening HIV Screening [facility] Start: 03-28-1979 Covid-19 Vaccine (#1) Covid-19 Vacci ne (#1) [facility] Start: 1978 Hepatitis B Vaccine (1 of 3 - 3-dose series) Hepatitis B Vaccine (1 of 3 - 3-dose series) [facility] Basic metabolic 2008 panel with ionized calcium - Serum or Plasma [facility] CBC W Auto Different ial panel - Blood [facility] CBC W Auto Different ial panel - Blood [facility] COVID & INFLUENZA A/ B & RSV NAAT, ROUTINE COVID & INFLUENZA A/B & RSV NAAT, ROUTINE Microbiology Routine Flu-like symptoms Ordered: 07/03/2023 [facility] Work Phone: Comment on above: Ordered: 07/03/2023 Hepatic function panel [facility] Hepatic function panel [facility] Hepatitis A virus Ig M Ab [Presence] in Serum [facility] Hepatitis B core ant ibody measurement, IgM type [facility] Hepatitis B surface antigen measurement [facility] Hepatitis B virus mcfarland rface Ab [Presence] in Serum [facility] Hepatitis C antibody measurement [facility] Patient Education RAD RN Paracentesis Dc [facility] Work Phone: Prothrombin time [facility] Urine culture [facility] Immunizations Immunization Date Immunization Notes Care Provider Fa hilda 08-07-2014 pneumococcal polysaccharide vaccine, 23 valent Concepcion Goff PA-C Work Phone: [facility] Work Phone: 08-07-2014 tetanus toxoid, redu jesús diphtheria toxoid, and acellular pertussis vaccine, adsorbed Concepcion Goff PA-C Work Phone: [facility] Work Phone: 04-09-2014 influenza, seasonal, injectable Concepcion Goff PA-C Work Phone: [facility] Work Phone: 04-09-2014 influenza virus vacc ine, unspecified formulation Concepcion Goff PA-C Work Phone: [facility] Payers Date Payer Category Payer Self-pay Unknown [id number] Unknown [id number] [id number] Unknown [id number] [id number] Unknown [id number] 2.16.8 [id number] Unknown [id number] 2.16.8 [id number] Unknown [id number] 2.16.8 [id number] Unknown [id number] 2.16.8 [id number] Unknown [id number] 2.16.8 [id number] Unknown [id number] [id number] [id number] Social History Date Type Detail Facility Start: 01-30-2014 End: 02-28-2025 Tobacco smoking status IDIS Smokes tobacco daily [facility] History of tobacco use Cigarette Smoker [facility] Start: 01-30-2014 End: 07-03-2023 Cigarettes smoked current (pack per day) - Reported 0.5 [facility] Start: 01-30-2014 Tobacco use and exposure Smokeless tobacco non-user [facility] Start: 07-03-2023 Alcohol intake Current drinke r of alcohol (finding) [facility] Start: 07-03-2023 Tobacco use panel [facility] Start: 1980 Sex Assigned At Not on file [facility] Start: 02-18-2025 Tobacco smoking stat [facility] Never smoked tobacco (finding) [facility] Start: 1980 Sex Assigned At Female W [facility] Start: 02-19-2025 Tobacco smoking stat [facility] Ex-smoker (finding) [facility] Functional Status Date Assessment Result Facility 02-19-2025 Functional status Ambulates [facility] Work Phone: Mental Status Date Assessment Result Facility 02-19-2025 Cognitive function Voice/Name [facility] Work Phone: Clinical Notes 07-03-2023 to 02-19-2025 Note Date & Type Note Facility 02-19-2025 Note [facility] Medical Records Department [address] [place] [address] Discharge Summary 02/19/25 1423 MR#: [id number] Acct: [id number] Name: AALIYAH CARDENAS Rep #: [id number] : 1980 44 From: Orlando Ordoñez DO PCP: Care Physician,No Primary Status:DIS IN Location: [place] [id number] Providers Date of Admission: 02/18/25 Date of Discharge: 02/19/25 Primary Care Physician: No Primary Care Phys Consultations 02/18/25 17:39 Consult: Gastroenterology Routine Consulting Provider: [facility] Reason for Consult: elevated bili and LFTs EMERGENT Consult: No MD Notified: Yes Date Notified: 02/18/25 Time Notified: 17:02 Method of Notification: ED Physician Initiated Reason For Visit: ABD PAIN, ELEVATED LFTS AND BILI Diagnosis Discharge Diagnosis (1) Elevated liver function tests: Status: Acute Code(s): R79.89 - Other specified abnormal findings of blood chemistry Plan 1. Alcoholic hepatitis #2 GERD Medications at Discharge Home Medications omeprazole 20 mg tablet,delayed release 20 mg PO DAILY 02/18/25 prednisone 20 mg tablet 20 mg PO BID #60 tabs 02/19/25 Hospital Course Operations None Procedures None Summary of Care Provided Minutes Spent on Discharge: 30 Hospital Course: This 44-year-old white female was seen in the emergency room at [facility] for evaluation of dysuria and right upper quadrant abdominal pain. She had also noted a discoloration of her skin over the past several days. Patient admitted to a daily intake of alcohol. Lab work obtained revealed normal CBC, patient's chemistry was abnormal for a bilirubin of 10.3, alkaline phosphatase of 426, AST of 324 and an ALT of 100. Patient's lactic acid was elevated at 3.3, her lipase was normal. CT of the abdomen pelvis showed no evidence for cholecystitis or pancreatitis, there was hepatomegaly with severe fatty liver infiltration, there was no acute or active inflammatory intra-abdominal pathology. Patient's urine showed +3 bacteria but it was not a good specimen as it had 5-10 squamous cells present, there were 10-25 WBCs seen. Patient was admitted to [place] [address], she was seen in consultation by gastroenterology felt that the patient had alcoholic hepatitis. Patient's urine culture came back showing low numbers of alphahemolytic organism she was not felt to have a UTI. On 02/19/2025, patient was seen and examined: On examination she appeared in good health and spirits, she does not appear to be in any distress. Vital signs as documented. Skin warm and dry and without overt rashes. Patient appeared jaundiced. Neck without JVD, thyroid appears normal, trachea is midline, neck is supple. Lungs clear, normal air movement was noted. Heart exam notable for regular rhythm, normal sounds and absence of murmurs, rubs or gallops. Abdomen unremarkable and without evidence of organomegaly, masses, or abdominal aortic enlargement, bowel sounds are present in all 4 quadrants, no abdominal tenderness was noted. Extremities nonedematous, no cyanosis was noted, no clubbing was noted. Neuro: Cranial nerves II through XII are grossly intact, no focal motor deficits were noted, sensation to light touch and pinprick is intact, motor exam 5/5 throughout. Psych: Patient is alert and oriented x3, she does not appear anxious or depressed, she does not appear agitated. On 02/19/2025, patient was seen and examined and felt to be in stable condition for discharge home. Weight / BMI Weight Weight: 93.44 kg Body Mass Index (BMI) 34.2 ABG / Lab / Microbiology Data 02/19/25 05:15 02/19/25 05:15 Laboratory: Laboratory Results - last 24 hr 02/18/25 14:11: Urine RBC 0 SEEN, Urine WBC 10-25 SEEN, Ur Squamous Epith Cells 5-10 SEEN, Urine Bacteria 3+, Urine Mucus 0 SEEN 02/18/25 18:12: Lactic Acid 3.9 H* 02/19/25 05:15: WBC 7.3, RBC 3.01 L, Hgb 11.0 L, Hct 30.6 L, MCV 101.7 H, MCH 36.5 H, MCHC 35.9, RDW Std Deviation 64.0 H, RDW Coeff of Chrissy 17.5 H, Plt Count 170, MPV 10.6, Immature Gran % (Auto) 0.700, Neut % (Auto) 80.2 H, Lymph % (Auto) 9.3 L, Gray % (Auto) 6.5, Eos % (Auto) 2.5, Baso % (Auto) 0.8, Absolute Neuts (auto) 5.9, Absolute Lymphs (auto) 0.68 L, Nucleated RBC % 0, PT 15.7 H, INR 1.2, Sodium 135, Potassium 3.5, Chloride 99, Carbon Dioxide 23.9, Anion Gap 12, BUN 5, Creatinine 0.77, Estim Creat Clear Calc 103.16, Est GFR (MDRD) Non-Af 96, BUN/Creatinine Ratio 6.7 L , Glucose 81, Calcium 7.9, Magnesium 1.6, Total Bilirubin 10.30 H, AST 230 H, ALT 71 H, Alkaline Phosphatase 308 H, Total Protein 6.1, Albumin 3.0 L, Globulin 3.1, Albumin/Globulin Ratio 1.0, TSH 7.250 H Microbiology: Microbiology 02/18/25 14:11 Urine, Clean Catch Urine Culture - Final Alpha hemolytic organism Radiography Diagnostic Testing: Radiology Impression Abdomen Ul (more content not included)... [facility] 02-19-2025 Discharge summary [facility] 02-19-2025 Hospital Discharg e instructions Additional Instructions Avoid alcohol intake Date of Discharge: 02/19/25 [facility] Work Phone: 02-18-2025 History and physical note Note Date/Time February 18, 2025 5:05pm [facility] Medical Records Department [address] [place] [address] H&P Exam - Hospitalist 02/18/25 1651 MR#: [id number] Acct: [id number] Name: AALIYAH CARDENAS Rep #:[id number] : 1980 44 From: Sanam Balderrama MD PCP: Care Physician,No Primary Status :REG ER Location: ED HPI - General General Date of Admission: 02/18/25 Date of Service: 02/18/25 Chief Complaint: Abd pain, poor PO intake HPI Narrative AALIYAH CARDENAS, is a 44-year-old female history of alcohol abuse and GERD presented to [facility] ED 02/18/2025 for dysuria and right upper quadrant abdominal pain over the past several weeks but have worsened further over the past 5 days. also states he noticed yellow discoloration of her eyes for the past week. Patient drinks a bottle of liquor every few days but does not think she is an alcoholic. Does endorse some abdominal bloating decreased p.o. intake. In the ED temp 98.2, heart rate initially 125 with a blood pressure 148/98, respiratory rate 16 pulse ox 100% on room air. CBC with white blood cell count 9.9, hemoglobin 13.8. BMP with potassium of 3.2 and a glucose of 120, INR 1.2 and lipase of 42. Liver profile did reveal a total biliof 10.3 with a direct bili 6.81, AST 324, ALT 100 and alk phos 426, alcohol level negative and ammonia 49. Lactic acid 3.3 and UA with bacteria, occult blood, 10-25 white blood cells but negative nitrite negative leuk esterase. Abdominal ultrasound somewhat limited but showed distended gallbladder with sludge with no definitive evidence of acute cholecystitis, also noted hepatomegaly with appearance of parenchyma most frequently associated with hepatic steatosis or other chronic liver diseases. ED physician contacted GI who felt that this was likely a manifestation of her alcohol abuse, recommended CT abdomen pelvis with IV contrast just to get baseline and better look at liverand to admit patient, did not think the MRCP was necessary at this time. Patient given Zosyn due to abnormal UA and significant elevation of her direct bili and total bili and hospitalist contacted for admission. Patient evaluated bedside. She reports several weeks of increasing right upper quadrant pain worsened over the past 3 to 5 days with yellowing of her eyes over the past 3 days and poor p.o. intake for a couple of weeks with nausea if she tries to eat at all, denies diarrhea and has been constipated, notes the pain in her abdomen is a pressure and is somewhat better if she just sits there but is worse if she tries to move or do any other activities so she has not been doing much in general. Does drink usually daily and will drink peach [place], bottle lasts her about 2 days. Denies any history of withdrawal seizures or DTs. Used to smoke but has subsequently quit smoking recently and now only have a cigarette occasionally. Denies cough or fever but has been having little bit of shortnessof breath since she began having the abdominal pain. Dysuria has been present over the past week or 2 as well PFSH Home Medications ?Medication ?Instructions ?Recorded ?Last Taken ?Type omeprazole 20 mg tablet,delayed 20 mg PO DAILY 5 02/17/25 History release Allergy/AdvReac Type Severity Reaction Status Date / Time No Known Allergies Allergy Verified 02/18/25 12:56 Social History Smoking Status: Never smoker ROS ROS Narrative General: Denies fever/chills HENT: Denies headache, denies stuffy nose, denies sore throat EYES: Denies changes in vision Resp: Denies cough, some shortness of breath Cardiac: Denies chest pain GI: Right upper abdominal pressure, some constipation, poor p.o. with nausea if she tries to eat : Some burning on urination Extremity: Has had problems with intermittent swelling in her legs since at least last summer MSK: Feels generally weak and fatigued Neuro: Denies any numbness/tingling Heme: Denies any bleeding or bruising, does have the yellowing of sclera Skin: Denies rashes Psychiatric: No complaints voiced Vital Signs Vital Signs Vital Signs: 02/18/25 12:54 02/18/25 12:56 02/18/25 [...] 98 98 Oxygen Delivery Method Room Air Weight Weight: 85.531 kg Body Mass Index (BMI) 31.4 Physical Exam Narrative General: Alert, oriented HEENT: Atraumatic, normocephalic Eyes: scleral icterus, normal conjunctiva, extraocular movements grossly intact Neck: Supple Respiratory: Clear to auscultation bilaterally, normal respiratory effort Cardiovascular: Regular rate and rhythm GI: Soft, somewhat tender to palpation more in epigastric to right upper quadrant without rebound, guarding, rigidity Extremities: No significant pitting edema Musculoskeletal: Moving all extremities Neuro: No overt focal neurological deficits Skin: No rashes appreciated Psych: Cooperative Results Lab / Micro Data 02/18/25 13:48 02/18/25 13:48 Labs: Laboratory Results - last 24 hr 02/18/25 13:48: WBC 9.9, RBC 3.81 L, Hgb 13.8, Hct 38.3, MCV 100.5 H, MCH 36.2 H, MCHC 36.0, RDW Std Deviation 63.7 H, RDW Coeff of Chrissy 17.3 H, Plt Count 196, MPV 10.1, Immature Gran % (Auto) 0.500, Neut % (Auto) 83.8 H, Lymph % (Auto) 7.7L, Gray % (Auto) 6.0, Eos % (Auto) 1.0, Baso % (Auto) 1.0, Absolute Neuts (auto)8.3 H, Absolute Lymphs (auto) 0.76 L, Nucleated RBC % 0, PT 15.1 H, INR 1.2, Sodium 135, Potassium 3.2 L, Chloride 92 L, Carbon Dioxide 26.7, Anion Gap 15, BUN 5, Creatinine 0.87, Estim Creat Clear Calc 87.26, Est GFR (MDRD) Non-Af 84, BUN/Creatinine Ratio 6.0 L, Glucose 120 H, Lactic Acid 3.3 H*, Calcium 9.2, Total Bilirubin 10.30 H, Direct Bilirubin 6.81 H, AST 324 H, ALT 100 H, Alkaline Phosphatase 426 H, Ammonia 49.1, Total Protein 8.0, Albumin 3.7, Globulin 4.3 H,Lipase 42, Ethyl Alcohol < 10.1 02/18/25 14:11: Urine Color SEE COMMENT BELOW, Urine Clarity Turbid, Urine pH 5.0, Ur Specific Thornton 1.020, Urine Protein 100 H, Urine Glucose (UA) Normal, Urine Ketones 5 H, Urine Occult Blood 150 H, Urine Nitrite Negative, Urine Bilirubin 6 H, Urine Urobilinogen 12 H, Ur Leukocyte Esterase Negative, Urine RBC 0 SEEN, Urine WBC 10-25 SEEN, Ur Squamous Epith Cells 5-10 SEEN, Urine Bacteria 3+, Urine Mucus 0 SEEN Imaging Radiology Impression Abdomen Ultrasound 02/18/25 13:20 IMPRESSION: 1. Somewhat limited exam. 2. Distended gallbladder with sludge. No biliary dilatation or definite evidence of acute cholecystitis. 3. Hepatomegaly with appearance of the parenchyma most frequently associated with hepatic steatosis or other chronic liver disease. Correlate with clinical and laboratory evaluation. 4. Additional description as above. Reading Location: [id number] Assessment & Plan Assessment/Plan (1) Elevated liver function tests: PLAN: Plan # Abnormal liver function tests -Liver profile did reveal a total bili of 10.3 with a direct bili 6.81, AST 324,ALT 100 and alk phos 426 -No previous labs available in our system - Abdominal ultrasound somewhat limited but showed distended gallbladder with sludge with no definitive evidence of acute cholecystitis, also noted hepatomegaly with appearance of parenchyma most frequently associated with hepatic steatosis or other chronic liver diseases -GI suspicious for alcoholic hepatitis given history and symptoms -Also check hepatitis panel -GI consult -Will continue Zosyn started in the ED, do feel it is reasonable at this time -IV fluids - Will start patient on transitional diet, will make her n.p.o. at midnight in the event she does need further imaging or evaluation tomorrow # Abnormal UA - There is concern patient may have UTI in the ED given her complaints of dysuria and bacteria in the urine -Patient does have some white cells but it is reported negative leuk esterase and nitrite -Does have some squamous cells -Bacteria is 3+ -Patient placed on Zosyn -Will continue for now given all of the above though lower suspicion for actual UTI, de-escalate as tolerated -Urine culture ordered and pending #Hypokalemia -Replace -Repeat in the AM # Heavy alcohol use - Will start CIWA with as needed coverage -Thiamine and folate #GERD -Continue PPI #DVT ppx: SCDs Sanam Balderrama MD Charges/Coding Visit Charges Inpatient E&M: 64881 Init Hosp L2 02/18/25 1705 <Electronically signed by Sanam Balderrama MD> Cosigner Signature (if applicable): CC: Dr. Sanam Balderrama MD; No Primary Care Physician~ Signed [facility] Work Phone: [phone]) 803-859009-01-2025 Discharge summary Author Dragan Montiel [facility] Note Date/Time February 18, 2025 4:58pm [facility] Medical Records Department [address] [place] [address] Emergency Department Summary 02/18/25 MR#: [id number] Acct: [id number] Name: AALIYAH CARDENAS Rep #:[id number] : 1980 44 From: Dragan Pemberton ggett DO PCP: Care Physician,No Primary Status :REG ER Location: ED HPI HPI - Female History of Present Illness Chief Complaint: Complaint Narrative Narrative: Chief complaint and HPI: 44-year-old female with past medical history of alcoholuse presents for evaluation of dysuria and right upper quadrant abdominal pain. Onset of symptoms several weeks but worsened in the last 5 days. On presentation, patient is jaundice which I brought to her and her 's attention. states he has been noticing yellowing discoloration of her eyes for the past week. She states that she drinks a bottle of liquor every fewdays. Does not feel that she is an [...] on the chart. Reviewed. Physical exam: Gen: A&O x3, NAD Head: Normocephalic, atraumatic Eyes: + [...] intact Psych: Cooperative, appropriate mood and [facility] Medications ?Medication ?Instructions ?Recorded ?Last Taken ?Type omeprazole 20 mg tablet,delayed 20 mg PO DAILY 5 02/17/25 History release Allergy/AdvReac Type Severity Reaction Status Date [...] brought to her and her 's attention. Husbandstates he has been noticing yellowing discoloration of [...] hyperbilirubinemia with a direct of 6.81, AST of324, ALT of 100. Ammonia unremarkable. Lipase unremarkable. [...] the patient after CT abdomen pelvis is performed. Patient was updated of all the results and confirmed understanding of the plan. CT abdomen pelvis pending at this time. EKG: Interpreted by me/EM physician: EKG shows sinus tachycardia nonspecific ST changes. Heart rate 103 Impression: 1. Hyperbilirubinemia 2. Transaminitis 3. Suspect alcoholic hepatitis 4. UTI 6. Hypokalemia with dehydration 7. History of alcohol abuse Lab Data Labs: Laboratory Results - last 24 hr 02/18/25 02/18/25 13:48 14:11 WBC 9.9 RBC 3.81 L Hgb 13.8 Hct 38.3 MCV 100.5 H MCH 36.2 H MCHC 36.0 RDW Std Deviation 63.7 H RDW Coeff of Chrissy 17.3 H Plt Count 196 MPV 10.1 Immature Gran % (Auto) 0.500 Neut % (Auto) 83.8 H Lymph % (Auto) 7.7 L Gray % (Auto) 6.0 Eos % (Auto) 1.0 Baso % (Auto) 1.0 Absolute Neuts (auto) 8.3 H Absolute Lymphs (auto) 0.76 L Nucleated RBC % 0 PT 15.1 H INR 1.2 Sodium 135 Potassium 3.2 L Chloride 92 L Carbon Dioxide 26.7 Anion Gap 15 BUN 5 Creatinine 0.87 Estim Creat Clear Calc 87.26 Est GFR (MDRD) Non-Af 84 BUN/Creatinine Ratio 6.0 L Glucose 120 H Lactic Acid 3.3 H* Calcium 9.2 Total Bilirubin 10.30 H Direct Bilirubin 6.81 H AST 324 H ALT 100 H Alkaline Phosphatase 426 H Ammonia 49.1 Total Protein 8.0 Albumin 3.7 Globulin 4.3 H Lipase 42 Urine Color SEE COMMENT BELOW Urine Clarity Turbid Urine pH 5.0 Ur Specific Thornton 1.020 Urine Protein 100 H Urine Glucose (UA) Normal Urine Ketones 5 H Urine Occult Blood 150 H Urine Nitrite Negative Urine Bilirubin 6 H Urine Urobilinogen 12 H Ur Leukocyte Esterase Negative Urine RBC 0 SEEN Urine WBC 10-25 SEEN Ur Squamous Epith Cells 5-10 SEEN Urine Bacteria 3+ Urine Mucus 0 SEEN Ethyl Alcohol < 10.1 Radiography Diagnostic Testing: Clinical Impression(s) from Imaging Studies Abdomen Ultrasound 02/18/25 13:20 IMPRESSION: 1. Somewhat limited exam. 2. Distended gallbladder with sludge. No biliary dilatation or definite evidence of acute cholecystitis. 3. Hepatomegaly with appearance of the parenchyma most frequently associated with hepatic steatosis or other chronic liver disease. Correlate with clinical and laboratory evaluation. 4. Additional description as above. Reading Location: [facility] Discharge Plan Triage Chief Complaint: Complaint ED Provider: Dragan Montiel Dx/Rx/DC Orders Prescriptions: No Action omeprazole 20 mg tablet,delayed release (DR/EC) 20 mg PO DAILY Primary Care Provider: Care Physician,Addie Primary Referrals: Fadi Lawrence MD [STAFF PHYSICIAN] - Print Language: Lithuanian What to do if you have Problems For any increased pain, shortness of breath, bleeding, nausea or vomiting, chestpain, or any unexpected problems, contact your Primary Care Provider. Call [facility] ([phone]) or report to the closest Emergency Room. Call 911 if necessary. 02/18/25 1594 <Electronically signed by Dragan Montiel DO> Cosigner Signature (if applicable): CC: No Primary Care Physician ~ Signed ADDENDUM by Dr. Dragan Montiel DO on 02/18/[address] abdomen pelvis shows no acute intra-abdominal pathology. No acute cholecystitis pancreatitis. No biliary ductal dilation. Hepatomegaly with severe fatty infiltration. Submucosal fat deposits throughout the colon presumably metabolic in nature and can be seen with insulin resistance. 02/18/25 1658<Electronically signed by Dragan Montiel DO> Cosigner Signature (if applicable): cc: No Primary Care Physician ~* Signed [facility] Work Phone: 1(309) 720-432109-01-2025 Evaluation note* Diagnosis Onset Date Resolution Status Admit Date Elevated liver function tests acute February 18, 2025 4:51pm [facility] Work Phone: 1(729) 986-350509-01-2025 Evaluation note* Diagnosis Onset Date Resolution Status Admit Date Alcoholic hepatitis acute Septe 2024 4:51pm Hepatomegaly acute February 4:51pm Elevated liver function tests inacti ve February 18, 2025 4:51pm Alcoholic hepatitis acute Septe 2024 10:47am Hepatomegaly acute February 282024 10:47am [facility] Work Phone: 1(152) 713-908009-01-2025 Evaluation note* Diagnosis Onset Date Resolution Status Admit Date Alcoholic hepatitis acute Septe 2024 4:51pm Hepatomegaly acute February 4:51pm Elevated liver function tests inacti ve February 18, 2025 4:51pm Alcoholic hepatitis acute Septe 2024 10:47am Ascites acute February 10:47am Edema acute February 10:47am Hepatomegaly acute February 282024 10:47am Jaundice acute February 10:47am Weight gain acute February 10:47am [facility] Work Phone: 1(893) 908-380109-01-2025 History and physical note [facility] Medical Records Department [address] [place] [address] H&P Exam - Hospitalist 02/18/251650 MR#: [id number] Acct: [id number] Name: AALIYAH CARDENAS Rep #:[id number] : 1980 44 From: Sanam Balderrama MD PCP: Care Physician,No Primary Status :REG ER Location: ED HPI - General General Date of Admission: 02/18/25 Date of Service: 02/18/25 Chief Complaint: Abd pain, poor PO intake HPI Narrative AALIYAH CARDENAS, is a 44-year-old female history of alcohol abuse and GERD presented to [facility] ED 02/18/2025 for dysuria and right upper quadrant abdominal pain over the past several weeks but have worsened further over the past 5 days. also states he noticed yellow discoloration of her eyes for the past week. Patient drinks a bottle of liquor every few days but does not think she is an alcoholic. Does endorse some abdominal bloating decreased p.o. intake. In the ED temp98.2, heart rate initially 125 with a blood pressure 148/98, respiratory rate 16 pulse ox 100% on room air. CBC with white blood cell count 9.9, hemoglobin 13.8. BMP with potassium of 3.2 and a glucose of 120, INR 1.2 and lipase of 42. Liver profile did reveal a total biliof 10.3 with a direct bili6.81, AST 324, ALT 100 and alk phos 426, alcohol level negative and ammonia 49. Lactic acid 3.3 andUA with bacteria, occult blood, 10- 25 white blood cells but negative nitrite negative leuk esterase. Abdominal ultrasound somewhat limited but showed distended gallbladder with sludge with no definitive evidence of acute cholecystitis, also noted hepatomegaly with appearance of parenchyma most frequently associated with hepatic steatosis or other chronic liver diseases. ED physician contacted GI who felt that this was likely a manifestation of her alcohol abuse, recommended CT abdomen pelvis with IV contrast just to get baseline and better look at liverand to admit patient, did not think the MRCP was necessary at this time. Patient given Zosyn due to abnormal UA and significant elevation ofher direct bili and total bili and hospitalist contacted for admission. Patient evaluated bedside. She reports several weeks of increasing right upper quadrant pain worsened over the past 3 to 5 dayswith yellowing of her eyes over the past 3 days and poor p.o. intake for a couple of weeks with nausea if she tries to eat at all, denies diarrhea and has been constipated, notes the pain in her abdomen is a pressure and is somewhat better if she just sits there but is worse if she tries to move ordo any other activities so she has not been doing much in general. Does drink usually daily and will drink peach [place], bottle lasts her about 2 days. Denies any history of withdrawal seizures or DTs. Used to smoke but has subsequently quit smoking recently and now only have a cigarette occasionally. Denies cough or fever but has been having little bit of shortnessof breath since she began havingthe abdominal pain. Dysuria has been present over the past week or 2 as well PFSH Home Medications ?Medication ?Instructions ?Recorded ?Last Taken ?Type omeprazole 20 mg tablet,delayed 20 mg PO DAILY 5 02/17/25 History release Allergy/AdvReac Type Severity Reaction Status Date / Time No Known Allergies Allergy Verified 02/18/25 12:56 Social History Smoking Status: Never smoker ROS ROS Narrative General: Denies fever/chills HENT: Denies headache, denies stuffy nose, denies sore throat EYES: Denies changes in vision Resp: Denies cough, some shortness of breath Cardiac: Denies chest pain GI: Right upper abdominal pressure, some constipation, poor p.o. with nausea if she tries to eat : Some burning on urination Extremity: Has had problems with intermittent swelling in her legs since at least last summer MSK: Feels generally weak and fatigued Neuro: Denies any numbness/tingling Heme: Denies any bleeding or bruising, does have the yellowing of sclera Skin: Denies rashes Psychiatric: No complaints voiced Vital Signs Vital Signs Vital Signs: 02/18/25 12:54 02/18/25 12:56 02/18/25 [...] 98 98 Oxygen Delivery Method Room Air Weight Weight: 85.531 kg Body Mass Index (BMI) 31.4 Physical Exam Narrative General: Alert, oriented HEENT: Atraumatic, normocephalic Eyes: scleral icterus, normal conjunctiva, extraocular movements grossly intact Neck: Supple Respiratory: Clear to auscultation bilaterally, normal respiratory effort Cardiovascular: Regular rate and rhythm GI: Soft, somewhat tender to palpation more in epigastric to right upper quadrant without rebound, guarding, rigidity Extremities: No significant pitting edema Musculoskeletal: Moving all extremities Neuro: No overt focal neurological deficits Skin: No rashes appreciated Psych: Cooperative Results Lab / Micro Data 02/18/25 13:48 02/18/25 13:48 Labs: Laboratory Results - last 24 hr 02/18/25 13:48: WBC 9.9, RBC 3.81 L, Hgb 13.8, Hct 38.3, MCV 100.5 H, MCH 36.2 H, MCHC 36.0, RDW Std Deviation 63.7 H, RDW Coeff of Chrissy 17.3 H, Plt Count 196, MPV 10.1, Immature Gran % (Auto) 0.500, Neut % (Auto) 83.8 H, Lymph % (Auto) 7.7L, Gray % (Auto) 6.0, Eos % (Auto) 1.0, Baso % (Auto) 1.0, Absolute Neuts (auto)8.3 H, Absolute Lymphs (auto) 0.76 L, Nucleated RBC % 0, PT 15.1 H, INR 1.2, Sodium 135, Potassium 3.2 L, Chloride 92 L, Carbon Dioxide 26.7, Anion Gap 15, BUN 5, Creatinine 0.87, Estim Creat Clear Calc 87.26, Est GFR (MDRD) Non-Af 84, BUN/Creatinine Ratio 6.0 L, Glucose 120 H, Lactic Acid 3.3 H*, Calcium 9.2, Total Bilirubin 10.30 H, Direct Bilirubin 6.81 H, AST 324 H, ALT 100H, Alkaline Phosphatase 426 H, Ammonia 49.1, Total Protein 8.0, Albumin 3.7, Globulin 4.3 H,Lipase 42, Ethyl Alcohol < 10.1 02/18/25 14:11: Urine Color SEE COMMENT BELOW, Urine Clarity Turbid, Urine pH 5.0, Ur Specific Thornton 1.020, Urine Protein 100 H, Urine Glucose (UA) Normal, Urine Ketones 5 H, Urine Occult Blood 150H, Urine Nitrite Negative, Urine Bilirubin 6 H, Urine Urobilinogen 12 H, Ur Leukocyte Esterase Negative, Urine RBC 0 SEEN, Urine WBC 10-25 SEEN, Ur Squamous Epith Cells 5-10 SEEN, Urine Bacteria 3+, Urine Mucus 0 SEEN Imaging Radiology Impression Abdomen Ultrasound 02/18/25 13:20 IMPRESSION: 1. Somewhat limited exam. 2. Distended gallbladder with sludge. No biliary dilatation or definite evidence of acute cholecystitis. 3. Hepatomegaly with appearance of the parenchyma most frequently associated with hepatic steatosisor other chronic liver disease. Correlate with clinical and laboratory evaluation. 4. Additional description as above. Reading Location: [id number] Assessment & Plan Assessment/Plan (1) Elevated liver function tests: PLAN: Plan # Abnormal liver function tests -Liver profile did reveal a total bili of 10.3 with a direct bili 6.81, AST 324,ALT 100 and alk phos 426 -No previous labs available in our system - Abdominal ultrasound somewhat limited but showed distended gallbladder with sludge with no definitive evidence of acute cholecystitis, also noted hepatomegaly with appearance of parenchyma most frequently associated with hepatic steatosis or other chronic liver diseases -GI suspicious for alcoholic hepatitis given history and symptoms -Also check hepatitis panel -GI consult -Will continue Zosyn started in the ED, do feel it is reasonable at this time -IV fluids - Will start patient on transitional diet, will make her n.p.o. at midnight in the event she does need further imaging or evaluation tomorrow # Abnormal UA - There is concern patient may have UTI in the ED given her complaints of dysuria and bacteria in the urine -Patient does have some white cells but it is reported negative leuk esterase and nitrite -Does have some squamous cells -Bacteria is 3+ -Patient placed on Zosyn -Will continue for now given all of the above though lower suspicion for actual UTI, de-escalate astolerated -Urine culture ordered and pending #Hypokalemia -Replace -Repeat in the AM # Heavy alcohol use - Will start CIWA with as needed coverage -Thiamine and folate #GERD -Continue PPI #DVT ppx: SCDs Sanam Balderrama MD Charges/Coding Visit Charges Inpatient E&M: 97090 Init Hosp L2 02/18/25 1705 Cosigner Signature (if applicable): CC: Dr. Sanam Balderrama MD; No Primary Care Physician~ Signed [facility]09-01-2025 Discharge summary [facility] Medical Records Department [address] [place] [address] Emergency Department Summary 02/18/25 MR#: [id number] Acct: [id number] Name: AALIYAH CARDENAS Rep #:[id number] : 1980 44 From: Dragan sherwoodett DO PCP: Care Physician,No Primary Status :REG ER Location: ED HPI HPI - Female History of Present Illness Chief Complaint: Complaint Narrative Narrative: Chief complaint and HPI: 44-year-old female with past medical history of alcoholuse presents for evaluation of dysuria and right upper quadrant abdominal pain. Onset of symptoms several weeks but worsened in the last 5 days. On presentation, patient is jaundice which I brought to her and her 's attention. states he has been noticing yellowing discoloration of her eyes for the past week. She states that she drinks a bottle of liquor every fewdays. Does not feel that she is an [...] on the chart. Reviewed. Physical exam: Gen: A&O x3, NAD Head: Normocephalic, atraumatic Eyes: + sclera icterus, conjunctiva clear, PERRL ENT: Mildly dry mucous membranes Neck: Trachea midline, No JVD CV: Tachycardic, regular rhythm, no murmurs, no peripheral edema Resp: Lungs CTA BL, no w/r/c GI: Abd soft, mildly distended, tender to palpation in the right upper quadrant and epigastrium, norebound or rigidity Msc: Full ROM, no deformity Skin: Warm, dry, jaundice Neuro: Alert, oriented, grossly intact, sensation intact Psych: Cooperative, appropriate mood and affect PFSH PFS Home Medications ?Medication ?Instructions ?Recorded ?Last Taken ?Type omeprazole 20 mg tablet,delayed 20 mg PO DAILY 5 02/17/25 History release Allergy/AdvReac Type Severity Reaction Status Date [...] brought to her and her 's attention. Husbandstates he has been noticing yellowing discoloration of her eyes for the past week. She states that shedrinks a bottle of liquor every few days. [...] acid is elevated secondary to dehydration as wellas UTI. Will cover broadly with Zosyn. Urine culture sent. NS bolus running. Patient has hyperbilirubinemia with a direct of 6.81, AST of324, ALT of 100. Ammonia unremarkable. Lipase unremarkable. Abdominal ultrasound shows distended gallbladder with sludge. No biliary dilation or acute cholecystitis. Common bile duct measures 3 mm. Biliary tree unremarkable. Patient has hepatomegaly with hepaticsteatosis or other chronic liver. Pancreas partially obscured [...] the patient after CT abdomen pelvis is performed. Patient was updated of all the results and confirmed understanding of the plan. CT abdomen pelvis pending at this time. EKG: Interpreted by me/EM physician: EKG shows sinus tachycardia nonspecific ST changes. Heart rate 103 Impression: 1. Hyperbilirubinemia 2. Transaminitis 3. Suspect alcoholic hepatitis 4. UTI 6. Hypokalemia with dehydration 7. History of alcohol abuse Lab Data Labs: Laboratory Results - last 24 hr 02/18/25 02/18/25 13:48 14:11 WBC 9.9 RBC 3.81 L Hgb 13.8 Hct 38.3 MCV 100.5 H MCH 36.2 H MCHC 36.0 RDW Std Deviation 63.7 H RDW Coeff of Chrissy 17.3 H Plt Count 196 MPV 10.1 Immature Gran % (Auto) 0.500 Neut % (Auto) 83.8 H Lymph % (Auto) 7.7 L Gray % (Auto) 6.0 Eos % (Auto) 1.0 Baso % (Auto) 1.0 Absolute Neuts (auto) 8.3 H Absolute Lymphs (auto) 0.76 L Nucleated RBC % 0 PT 15.1 H INR 1.2 Sodium 135 Potassium 3.2 L Chloride 92 L Carbon Dioxide 26.7 Anion Gap 15 BUN 5 Creatinine 0.87 Estim Creat Clear Calc 87.26 Est GFR (MDRD) Non-Af 84 BUN/Creatinine Ratio 6.0 L Glucose 120 H Lactic Acid 3.3 H* Calcium 9.2 Total Bilirubin 10.30 H Direct Bilirubin 6.81 H AST 324 H ALT 100 H Alkaline Phosphatase 426 H Ammonia 49.1 Total Protein 8.0 Albumin 3.7 Globulin 4.3 H Lipase 42 Urine Color SEE COMMENT BELOW Urine Clarity Turbid Urine pH 5.0 Ur Specific Thornton 1.020 Urine Protein 100 H Urine Glucose (UA) Normal Urine Ketones 5 H Urine Occult Blood 150 H Urine Nitrite Negative Urine Bilirubin 6 H Urine Urobilinogen 12 H Ur Leukocyte Esterase Negative Urine RBC 0 SEEN Urine WBC 10-25 SEEN Ur Squamous Epith Cells 5-10 SEEN Urine Bacteria 3+ Urine Mucus 0 SEEN Ethyl Alcohol < 10.1 Radiography Diagnostic Testing: Clinical Impression(s) from Imaging Studies Abdomen Ultrasound 02/18/25 13:20 IMPRESSION: 1. Somewhat limited exam. 2. Distended gallbladder with sludge. No biliary dilatation or definite evidence of acute cholecystitis. 3. Hepatomegaly with appearance of the parenchyma most frequently associated with hepatic steatosisor other chronic liver disease. Correlate with clinical and laboratory evaluation. 4. Additional description as above. Reading Location: [facility] Discharge Plan Triage Chief Complaint: Complaint ED Provider: Dragan Montiel Dx/Rx/DC Orders Prescriptions: No Action omeprazole 20 mg tablet,delayed release (DR/EC) 20 mg PO DAILY Primary Care Provider: Care Physician,No Primary Referrals: Fadi Lawrence MD [STAFF PHYSICIAN] - Print Language: Lithuanian What to do if you have Problems For any increased pain, shortness of breath, bleeding, nausea or vomiting, chestpain, or any unexpected problems, contact your Primary Care Provider. Call [facility] ([phone]) or report tothe closest Emergency Room. Call 911 if necessary. 02/18/25 1626 Cosigner Signature (if applicable): CC: No Primary Care Physician ~ Signed ADDENDUM by Dr. Dragan Montiel DO on 02/18/[address] abdomen pelvis shows no acute intra-abdominal pathology. No acute cholecystitis pancreatitis. Nobiliary ductal dilation. Hepatomegaly with severe fatty infiltration. Submucosal fat deposits throughout the colon presumably metabolic in nature and can be seen with insulin resistance. 02/18/25 1658 Cosigner Signature (if applicable): cc: No Primary Care Physician ~* Signed [facility]09-01-2025 Radiology Diagnostic study note [facility] Imaging Services [address] [place] [address] Abdomen/Pelvis W IV Cont ONLY MR#: [id number] Acct: [id number] Name: AALIYAH CARDENAS Rep #: [id number] : 1980 F 44 From: Steven Ojeda MD PCP: Care Physician,No Primary Status: REG ER Study:Abdomen/Pelvis W IV Cont ONLY Date of E xam: 02/18/25 Exam# [id number] Ordering Dr: Dragan Rockwell DO PROCEDURE: CT ABDOMEN/PELVIS W IV CONT ONLY 02/18/2025 REASON FOR EXAM: RIGHT UPPER QUADRANT ABDOMINAL PAIN TECHNIQUE: Procedure Code: CTABDPELIV Modality: CT Procedure: ABDOMEN/PELVIS W IV CONT ONLY Coronal and Sagittal reconstruction series were provided. One or more dose reduction techniques were used (e.g., Automated exposure control, adjustment of the mA and/or kV according to patient size, use of iterative reconstruction technique. RADIATION DOSE SUMMARY: DLP: 1266.91 mGycm COMPARISON: Abdominal ultrasound same day 02/18/2025. FINDINGS: Lung bases: Clear. Liver: Hepatomegaly with severe hepatic steatosis. No focal lesion. Gallbladder: Unremarkable. No biliary ductal dilatation or pericholecystic inflammation. Spleen: Normal size and morphology. Pancreas: Unremarkable. Adrenals: Unremarkable. Kidneys: Unremarkable. No urolithiasis or hydronephrosis. Bladder: Unremarkable. Reproductive Organs: Grossly normal. Bilateral tubal ligation clips. Bowel: No evidence of bowel obstruction or active inflammatory process. Normal appendix. Diffuse submucosal fatty infiltration of the colon, likely metabolic such as with insulin resistance. Lymph nodes: No enlarged abdominopelvic lymph nodes. Vasculature: Major vascular structures are patent, normal in course and caliber. Peritoneum / Retroperitoneum: No significant ascites or free air. Bones: No significant abnormality. CT/Abdomen/Pelvis W IV Cont ONLY IMPRESSION: 1. No acute or active inflammatory intra-abdominal pathology. 2. No evidence for acute cholecystitis or pancreatitis. No biliary ductal dilatation. 3. Hepatomegaly with severe fatty infiltration. Submucosal fat deposition throughout the colon presumably metabolic in nature and can be seen with insulin resistance. Reading Location: [facility] CC: Dr. Dragan Montiel DO; No Primary Care Physician ~ Consumer Marketing Analyst: Signed [facility]09-01-2025 Radiology Diagnostic study note [facility] Imaging Services [address] [place] [address] Abdomen Limited MR#: [id number] Acct: [id number] Name: AALIYAH CARDENAS Rep #: [id number] : 1980 F 44 From: Gilda Recinos MD PCP: Care Physician,No Primary Status: REG ER Study:Abdomen Limited Date of Exam: 07/14 Exam# [id number] Ordering Dr: Dragan Rockwell DO PROCEDURE: ABDOMEN LIMITED 02/18/2025 REASON FOR EXAM: PAIN, JAUNDICE TECHNIQUE: Procedure Code: USABDL Modality: US Procedure: ABDOMEN LIMITED COMPARISON: None FINDINGS: Exam limited by soft tissue attenuation, shadowing bowel gas, and suboptimal penetration of the echogenic liver. Liver: LEFT lobe not visible. Echogenic. 22.0 cm in length. Gallbladder: Distended without visualized stones, significant wall thickening orpericholecystic fluid. Sludge is present. Reportedly, sonographic Jj's [...] the parenchyma most frequently associated with hepatic steatosisor other chronic liver disease. Correlate with clinical and laboratory evaluation. 4. Additional description as above. Reading Location: [id number] CC: Dr. Dragan Montiel, ; No Primary Care Physician ~ Consumer Marketing Analyst: Signed [facility]01-14-2024 NoteHNO ID: [id number] Author: CONCEPCION GOFF PA-C Service: ? Author Type: Physician Fuel System Maintenance Worker Type: Progress Notes Filed: 07/03/2023 13:27 Note Text: Aaliyah Sherman is a 42 year old female with a complaint of cough, nasal congestion, rhinorrhea, fever up to 100.5, chills x 3 days. Works at [employer]. Diarrhea today. Had one episode of vomiting [...] INFLUENZA A/B AND RSV NAAT, ROUTINE LI [facility]01-14-2024 History of Present illness Narrative* Concepcion Goff PA-Altagracia - 07/03/2023 1:21 PM EST Aaliyah Sherman is a 42 year old female with a complaint of cough, nasal congestion, rhinorrhea, fever up to 100.5, chills x 3 days. Works at [employer]. Diarrhea today. Had one episode of vomiting [...] ROUTINE Concepcion Goff PA-C documented in this encounterMer[facility] HospitalDischar summary Author Orlando Ordoñez [facility] Note Date/Time February 19, 2025 2:22pm [facility] Medical Records Department [address] [place] [address] Instructions for Home/Discharge Instructions 02/19/25 1412 MR#: [id number] Acct: [id number] Name: AALIYAH CARDENAS Rep #:[id number] : 1980 44 From: Orlando Ordoñez DO PCP: Care Physician,No Primary Status :ADM IN Discharge Instructions DC O2, CPAP, BIPAP needs Home O2 Discharge instructions: No Dressing / Incision Discharge Activity: Return to Normal Activity Weight Bearing Status: Full weight bearing Follow Up Care Test Results: Test results from this visit will be discussed in further detail at your follow- up appointment, if applicable. Discharge Plan Admission Admit Date/Time: 02/18/25 16:51 Primary Reason for Your Visit: alcohol induced hepatitis Attending Provider: Orlando Ordoñez Primary Care Provider: Care Physician,No Primary Consulting Providers: Anselmo Guan; Josh Trotter; Yola Galo; Radha Sands; Gena Josue; Sanam Balderrama Instructions Additional Instructions / Restrictions: Avoid alcohol intake Discharge Orders/Prescriptions Prescriptions: New prednisone 20 mg tablet 20 mg PO BID Qty: 60 1RF Rx Instructions: begin tonite Continued omeprazole 20 mg tablet,delayed release (DR/EC) 20 mg PO DAILY Referrals / Follow Up: Josh Trotter DO [Med Staff - Active Staff] - See Referral Note (office will call you to schedule the appointment, call by this Tuesday if you don't hear fromthe office) Fadi Lawrence MD [STAFF PHYSICIAN] - In 1 Week (Have him recheck your liver enzymes) Care Physician,No Primary [Primary Care Provider] - Disposition Disposition (needs filled in before D/C Order can be placed): Home, Self Care 02/19/25 1422<Electronically signed by Orlando Ordoñez DO>Orlando Ordoñez DO CC: PRODUCT DEVELOPMENT COORDINATORGeorgeC Yola Galo; PRODUCT DEVELOPMENT COORDINATORGeorgeC Radha Sands; Dr. Sanam Balderrama MD; Dr. Anselmo Guan MD; LI Dias; No Primary Care Physician; Josh Trotter DO ~ Signed [facility] Work Phone: Evaluation note* Diagnosis Flu-like symptoms- Primary Other general symptoms documented in this encounter [facility]* Diagnosis Onset Date Resolution Status Admit Date Elevated liver function tests acute February 18, 2025 4:51pm [facility] Work Phone: History and physical note Author Sanam Balderrama [facility] Note Date/Time February 18, 2025 5:05pm [facility] System Medical Records Department [address] [place] [address] H&P Exam - Hospitalist 02/18/25 1651 MR#: [id number] Acct: [id number] Name: AALIYAH CARDENAS Rep #:[id number] : 1980 44 From: Sanam Balderrama MD PCP: Care Physician,No Primary Status :REG ER Location: ED HPI - General General Date of Admission: 02/18/25 Date of Service: 02/18/25 Chief Complaint: Abd pain, poor PO intake HPI Narrative AALIYAH CARDENAS, is a 44-year-old female history of alcohol abuse and GERD presented to [facility] ED 02/18/2025 for dysuria and right upper quadrant abdominal pain over the past several weeks but have worsened further over the past 5 days. also states he noticed yellow discoloration of her eyes for the past week. Patient drinks a bottle of liquor every few days but does not think she is an alcoholic. Does endorse some abdominal bloating decreased p.o. intake. In the ED temp 98.2, heart rate initially 125 with a blood pressure 148/98, respiratory rate 16 pulse ox 100% on room air. CBC with white blood cell count 9.9, hemoglobin 13.8. BMP with potassium of 3.2 and a glucose of 120, INR 1.2 and lipase of 42. Liver profile did reveal a total biliof 10.3 with a direct bili 6.81, AST 324, ALT 100 and alk phos 426, alcohol level negative and ammonia 49. Lactic acid 3.3 and UA with bacteria, occult blood, 10-25 white blood cells but negative nitrite negative leuk esterase. Abdominal ultrasound somewhat limited but showed distended gallbladder with sludge with no definitive evidence of acute cholecystitis, also noted hepatomegaly with appearance of parenchyma most frequently associated with hepatic steatosis or other chronic liver diseases. ED physician contacted GI who felt that this was likely a manifestation of her alcohol abuse, recommended CT abdomen pelvis with IV contrast just to get baseline and better look at liverand to admit patient, did not think the MRCP was necessary at this time. Patient given Zosyn due to abnormal UA and significant elevation of her direct bili and total bili and hospitalist contacted for admission. Patient evaluated bedside. She reports several weeks of increasing right upper quadrant pain worsened over the past 3 to 5 days with yellowing of her eyes over the past 3 days and poor p.o. intake for a couple of weeks with nausea if she tries to eat at all, denies diarrhea and has been constipated, notes the pain in her abdomen is a pressure and is somewhat better if she just sits there but is worse if she tries to move or do any other activities so she has not been doing much in general. Does drink usually daily and will drink peach [place], bottle lasts her about 2 days. Denies any history of withdrawal seizures or DTs. Used to smoke but has subsequently quit smoking recently and now only have a cigarette occasionally. Denies cough or fever but has been having little bit of shortnessof breath since she began having the abdominal pain. Dysuria has been present over the past week or 2 as well PFSH Home Medications ?Medication ?Instructions ?Recorded ?Last Taken ?Type omeprazole 20 mg tablet,delayed 20 mg PO DAILY 5 02/17/25 History release Allergy/AdvReac Type Severity Reaction Status Date / Time No Known Allergies Allergy Verified 02/18/25 12:56 Social History Smoking Status: Never smoker ROS ROS Narrative General: Denies fever/chills HENT: Denies headache, denies stuffy nose, denies sore throat EYES: Denies changes in vision Resp: Denies cough, some shortness of breath Cardiac: Denies chest pain GI: Right upper abdominal pressure, some constipation, poor p.o. with nausea if she tries to eat : Some burning on urination Extremity: Has had problems with intermittent swelling in her legs since at least last summer MSK: Feels generally weak and fatigued Neuro: Denies any numbness/tingling Heme: Denies any bleeding or bruising, does have the yellowing of sclera Skin: Denies rashes Psychiatric: No complaints voiced Vital Signs Vital Signs Vital Signs: 02/18/25 12:54 02/18/25 12:56 02/18/25 [...] 98 98 Oxygen Delivery Method Room Air Weight Weight: 85.531 kg Body Mass Index (BMI) 31.4 Physical Exam Narrative General: Alert, oriented HEENT: Atraumatic, normocephalic Eyes: scleral icterus, normal conjunctiva, extraocular movements grossly intact Neck: Supple Respiratory: Clear to auscultation bilaterally, normal respiratory effort Cardiovascular: Regular rate and rhythm GI: Soft, somewhat tender to palpation more in epigastric to right upper quadrant without rebound, guarding, rigidity Extremities: No significant pitting edema Musculoskeletal: Moving all extremities Neuro: No overt focal neurological deficits Skin: No rashes appreciated Psych: Cooperative Results Lab / Micro Data 02/18/25 13:48 02/18/25 13:48 Labs: Laboratory Results - last 24 hr 02/18/25 13:48: WBC 9.9, RBC 3.81 L, Hgb 13.8, Hct 38.3, MCV 100.5 H, MCH 36.2 H, MCHC 36.0, RDW Std Deviation 63.7 H, RDW Coeff of Chrissy 17.3 H, Plt Count 196, MPV 10.1, Immature Gran % (Auto) 0.500, Neut % (Auto) 83.8 H, Lymph % (Auto) 7.7L, Gray % (Auto) 6.0, Eos % (Auto) 1.0, Baso % (Auto) 1.0, Absolute Neuts (auto)8.3 H, Absolute Lymphs (auto) 0.76 L, Nucleated RBC % 0, PT 15.1 H, INR 1.2, Sodium 135, Potassium 3.2 L, Chloride 92 L, Carbon Dioxide 26.7, Anion Gap 15, BUN 5, Creatinine 0.87, Estim Creat Clear Calc 87.26, Est GFR (MDRD) Non-Af 84, BUN/Creatinine Ratio 6.0 L, Glucose 120 H, Lactic Acid 3.3 H*, Calcium 9.2, Total Bilirubin 10.30 H, Direct Bilirubin 6.81 H, AST 324 H, ALT 100 H, Alkaline Phosphatase 426 H, Ammonia 49.1, Total Protein 8.0, Albumin 3.7, Globulin 4.3 H,Lipase 42, Ethyl Alcohol < 10.1 02/18/25 14:11: Urine Color SEE COMMENT BELOW, Urine Clarity Turbid, Urine pH 5.0, Ur Specific Thornton 1.020, Urine Protein 100 H, Urine Glucose (UA) Normal, Urine Ketones 5 H, Urine Occult Blood 150 H, Urine Nitrite Negative, Urine Bilirubin 6 H, Urine Urobilinogen 12 H, Ur Leukocyte Esterase Negative, Urine RBC 0 SEEN, Urine WBC 10-25 SEEN, Ur Squamous Epith Cells 5-10 SEEN, Urine Bacteria 3+, Urine Mucus 0 SEEN Imaging Radiology Impression Abdomen Ultrasound 02/18/25 13:20 IMPRESSION: 1. Somewhat limited exam. 2. Distended gallbladder with sludge. No biliary dilatation or definite evidence of acute cholecystitis. 3. Hepatomegaly with appearance of the parenchyma most frequently associated with hepatic steatosis or other chronic liver disease. Correlate with clinical and laboratory evaluation. 4. Additional description as above. Reading Location: [id number] Assessment & Plan Assessment/Plan (1) Elevated liver function tests: PLAN: Plan # Abnormal liver function tests -Liver profile did reveal a total bili of 10.3 with a direct bili 6.81, AST 324,ALT 100 and alk phos 426 -No previous labs available in our system - Abdominal ultrasound somewhat limited but showed distended gallbladder with sludge with no definitive evidence of acute cholecystitis, also noted hepatomegaly with appearance of parenchyma most frequently associated with hepatic steatosis or other chronic liver diseases -GI suspicious for alcoholic hepatitis given history and symptoms -Also check hepatitis panel -GI consult -Will continue Zosyn started in the ED, do feel it is reasonable at this time -IV fluids - Will start patient on transitional diet, will make her n.p.o. at midnight in the event she does need further imaging or evaluation tomorrow # Abnormal UA - There is concern patient may have UTI in the ED given her complaints of dysuria and bacteria in the urine -Patient does have some white cells but it is reported negative leuk esterase and nitrite -Does have some squamous cells -Bacteria is 3+ -Patient placed on Zosyn -Will continue for now given all of the above though lower suspicion for actual UTI, de-escalate as tolerated -Urine culture ordered and pending #Hypokalemia -Replace -Repeat in the AM # Heavy alcohol use - Will start CIWA with as needed coverage -Thiamine and folate #GERD -Continue PPI #DVT ppx: SCDs Sanam Balderrama MD Charges/Coding Visit Charges Inpatient E&M: 46112 Init Hosp L2 02/18/25 1705 <Electronically signed by Sanam Balderrama MD> Cosigner Signature (if applicable): CC: Dr. Sanam Balderrama MD; No Primary Care Physician~ Signed [facility] Work Phone: Reason for referral (narrative)No reason for referral information availableWSelect Medical [facility] Work Phone: Summary Purpose Family History No Family History Records FoundNo Family History Records FoundNo Family History Records FoundNo Family History Records Found Advance Directives No Advanced Directives Records Found Advance Directive Response Recorded Date/ Time Do you have a Healthcare Power of Hand Box Coverer? No February 18, 2025 12:54pm Advance Directive Response Recorded Date/ Time Do you have a Healthcare Power of Hand Box Coverer? No February 18, 2025 5:39pm Chief Complaint and Reason for Visit Chief Complaint Admit Date ABD PAIN, ELEVATED LFTS AND BILI Septemb er 2024 4:51pm Reason for Visit Admit Date Elevated liver function tests February 18, 2025 4:51pm Chief Complaint Admit Date ABD PAIN, ELEVATED LFTS AND BILI Septemb er 2024 4:51pm ABD PAIN, ELEVATED LFTS AND BILI Septemb er 2024 2:23pm ABD PAIN, ELEVATED LFTS AND BILI Septemb er 2024 5:39pm elevated liver enzymes February 28 025 10:47am Reason for Visit Admit Date Alcoholic hepatitis February 18, 2025 4:51pm Hepatomegaly February 18, 2025 4:51pm Elevated liver function tests February 18, 2025 4:51pm Alcoholic hepatitis February 28, 2025 10:47am Hepatomegaly February 28, 2025 10:47am Chief Complaint Admit Date ABD PAIN, ELEVATED LFTS AND BILI Septemb er 2024 4:51pm ABD PAIN, ELEVATED LFTS AND BILI Septemb er 2024 2:23pm ABD PAIN, ELEVATED LFTS AND BILI Septemb er 2024 5:39pm elevated liver enzymes February 28 10:47am E-ORDER February 28, 2025 11:41am ASCITES March 05, 2025 8:47am Reason for Visit Admit Date Alcoholic hepatitis February 18, 2025 4:51pm Hepatomegaly February 18, 2025 4:51pm Elevated liver function tests February 18, 2025 4:51pm Alcoholic hepatitis February 28, 2025 10:47am Ascites February 28, 2025 10:47am Edema February 28, 2025 10:47am Hepatomegaly February 28, 2025 10:47am Jaundice February 28, 2025 10:47am Weight gain February 28, 2025 10:47am Additional Source Comments INFORMATION SOURCE (unrecogn ized section and content) DATE CREATED AUTHOR 12/14/2017 [facility] [employer] DATE CREATED AUTHOR AUTHOR'S ORGANIZ ATION 05/22/2021 [facility] DATE CREATED AUTHOR AUTHOR'S ORGANIZ ATION 07/04/2023 [facility] DATE CREATED AUTHOR AUTHOR'S ORGANIZ ATION 03/07/2025 [facility] Source Comments (unrecognize d section and content) In the event this informatio n is protected by the Federal Confidentiality of Alcohol and Drug Abuse Patient Records regulations: The Federal rules restrict any use of the information to criminally investigate or prosecute any alcohol or drug abuse patient.[facility] Reason for Visit (unrecogniz ed section and content) Reason Comments Viral Syndrome Symptoms started on the 11 cough, body aches diarrhea No diarrhea this morning, headache, head congestion. Specialty Diagnoses / Procedures Referred By Contac t Referred To Contact Internal Medicine / WALK-IN CLINIC Diagnoses cough, some body aches, diarrhea onset 06/30 Procedures NEW SAME DAY Self Walk In [address] [place] [address] Referral ID Status Reason Start Date Expiration Date Visits Requested Visits Authorized [id number] Pending Review Financial Clearance Required - Self Pay 07/03/2023 10/01/2023 1 1 Care Teams (unrecognized sec tion and content) Team Status: Active Member Role/Relationship Status Dates No Primary Care Physician Primary Care Provider Active Team Status: Active Member Role/Relationship Status Dates Dr. Dragan Montiel DO Emergency Provider Activ e Start: February 18, 2025 No Primary Care Physician Primary Care Provider Active Start: February 18, 2025 Dr. Sanam Balderrama MD Admit Provider Active Star t: February 18, 2025 Dr. Sanam Balderrama MD Attending Provider Active Start: February 18, 2025 Team Status: Inactive Member Role/Relationship Status Dates Dr. Dragan Montiel DO Emergency Provider Activ e Start: February 18, 2025 End: February 19, 2025 No Primary Care Physician Primary Care Provider Active Start: February 18, 2025 End: February 19, 2025 Dr. Sanam Balderrama MD Admit Provider Active Star t: February 18, 2025 End: February 19, 2025 Dr. Sanam Balderrama MD Other Provider Active Star t: February 18, 2025 End: February 19, 2025 Dr. Anselmo Guan MD Other Provider Active Sta rt: February 18, 2025 End: February 19, 2025 Dr. Josh Trotter DO Other Provider Active St art: February 18, 2025 End: February 19, 2025 EMILIE Fajardo Other Provider Active Start : February 18, 2025 End: February 19, 2025 EMILIE Osorio Other Provider Active St art: February 18, 2025 End: February 19, 2025 LI Dias Other Provider Active Star t: February 18, 2025 End: February 19, 2025 Dr. Orlando Ordoñez DO Attending Provider Active Start: February 18, 2025 End: February 19, 2025 Team Status: Active Member Role/Relationship Status Dates Dr. Dragan Montiel , DO Emergency Provider Activ e Start: February 19, 2025 No Primary Care Physician Primary Care Provider Active Start: February 19, 2025 Dr. Sanam Balderrama MD Admit Provider Active Star t: February 19, 2025 Dr. Sanam Balderrama MD Other Provider Active Star t: February 19, 2025 Dr. Anselmo Guan MD Other Provider Active Sta rt: February 19, 2025 Dr. Josh Trotter , Other Provider Active St art: February 19, 2025 EMILIE Fajardo Other Provider Active Start : February 19, 2025 EMILIE Osorio Other Provider Active St art: February 19, 2025 LI Dias Other Provider Active Star t: February 19, 2025 Dr. Orlando Ordoñez , Attending Provider Active Start: February 19, 2025 Dr. Orlando Ordoñez , DO Other Provider Active S tart: February 19, 2025 Team Status: Active Member Role/Relationship Status Dates Dr. Dragan Montiel DO Emergency Provider Activ e Start: February 19, 2025 No Primary Care Physician Primary Care Provider Active Start: February 19, 2025 Dr. Sanam Balderrama MD Admit Provider Active Star t: February 19, 2025 Dr. Sanam Balderrama MD Other Provider Active Star t: February 19, 2025 Dr. Anselmo Guan MD Other Provider Active Sta rt: February 19, 2025 Dr. Josh Trotter DO Attending Provider Active Start: February 19, 2025 Dr. Josh Trotter , DO Other Provider Active St art: February 19, 2025 EMILIE Fajardo Other Provider Active Start : February 19, 2025 EMILIE Osorio Other Provider Active St art: February 19, 2025 LI Dias Other Provider Active Star t: February 19, 2025 Dr. Orlando Ordoñez , DO Other Provider Active S tart: February 19, 2025 Team Status: Inactive Member Role/Relationship Status Dates No Primary Care Physician Primary Care Provider Active Start: February 28, 2025 End: February 28, 2025 No Primary Care Physician Referring Provider Active Start: February 28, 2025 End: February 28, 2025 EMILIE Osorio Attending Provider Active Start: February 28, 2025 End: February 28, 2025 Team Status: Active Member Role/Relationship Status Dates No Primary Care Physician Primary Care Provider Active Start: February 28, 2025 EMILIE Osorio Attending Provider Active Start: February 28, 2025 EMILIE Osorio Referring Provider Active Start: February 28, 2025 Team Status: Inactive Member Role/Relationship Status Dates No Primary Care Physician Primary Care Provider Active Start: March 05, 2025 End: March 05, 2025 EMILIE Osorio Attending Provider Active Start: March 05, 2025 End: March 05, 2025 EMILIE Osorio Referring Provider Active Start: March 05, 2025 End: March 05, 2025 Goals (unrecognized section and content) Goals may be documented in a n alternate sectionGoals may be documented in an alternate sectionGoals may be documented in an alternate sectionGoals may be documented in an alternate section FOR RECORDS PERTAINING TO PATIENTS WHO ARE [...] BE BASED ON THE PRIMARY CLINICAL RECORDS. [facility]. provides no warranty or guarantee of the accuracy or completeness of information in this document.
== END | disposition home or self-care (01) ==
LOC: LAB 14:22
PROVIDERS: Referring Provider Nurse Practitioner Acute Care; Visit Provider Nurse Practitioner Acute Care
DX: K70.10 Alcoholic hepatitis without ascites (principal); R18.8 Other ascites; R63.5 Abnormal weight gain; R16.0 Hepatomegaly, not elsewhere classified
CPT/HCPCS: 36415; 80048; 80076; 85025

== ENCOUNTER → 2025-03-13 | Outpatient (CLI) | payer SELFPAY ==
[2025-03-13 12:14] LABS: Prothrombin Time (Protime)PT. 14.6 SECONDS (11.7-14.9)
[2025-03-13 12:22] LABS: Hematocrit 41.9 % (37-47); Hemoglobin 13.9 g/dL (12.0-15.0); Immature Granulocytes Count 0.140 X10^3/uL (0.0-0.0); Mean Corp Hgb Conc 33.2 g/dL (32-36); Mean Corpuscular Volume 107.2 fL (81-99); Mean Platelet Vol. 10.9 fl (6.2-12.0); NRBC Flagged by Analyzer 0 % (0-5); Platelet Count 232 K/mm3 (150-450); RBC Distribution Width CV 13.8 % (11.6-14.6); RBC Distribution Width SD 54.6 fl (35.1-43.9); Red Blood Count 3.91 M/mm3 (4.2-5.4); White Blood Count 18.2 K/mm3 (4.4-11.0)
[2025-03-13 12:48] LABS: AST(SGOT) 280 U/L (<=31); Alanine Aminotransfer ALT/SGPT 413 U/L (<=34); Albumin, Serum 4.2 g/dL (3.5-5.0); Alkaline Phosphatase 211 U/L (35-104); Anion Gap 15 (5-15); BUN 18 mg/dL (4-19); BUN/Creat Ratio 23.7 RATIO (10-20); Calcium,Total 9.9 mg/dL (7.6-11.0); Carbon Dioxide 23.0 mmol/L (21.0-32.0); Chloride 99 mmol/L (98-108); Globulin 3.1 g/dL (2.2-4.2); Glucose 111 mg/dL (70-99); Potassium 3.6 mmol/L (3.3-5.1)
== END | disposition home or self-care (01) ==
LOC: LAB 11:30
PROVIDERS: Referring Provider Nurse Practitioner Acute Care; Visit Provider Nurse Practitioner Acute Care
DX: K70.10 Alcoholic hepatitis without ascites (principal); R74.01 Elevation of levels of liver transaminase levels
CPT/HCPCS: 36415; 80053; 84443; 85025; 85610

== ENCOUNTER → 2025-04-18 | Outpatient (CLI) | payer SELFPAY ==
[2025-04-18 14:28] LABS: Hematocrit 47.3 % (37-47); Hemoglobin 15.9 g/dL (12.0-15.0); Immature Granulocytes Count 0.040 X10^3/uL (0.0-0.0); Mean Corp Hgb Conc 33.6 g/dL (32-36); Mean Corpuscular Volume 98.3 fL (81-99); Mean Platelet Vol. 10.0 fl (6.2-12.0); NRBC Flagged by Analyzer 0 % (0-5); Platelet Count 224 K/mm3 (150-450); RBC Distribution Width CV 12.6 % (11.6-14.6); RBC Distribution Width SD 45.6 fl (35.1-43.9); Red Blood Count 4.81 M/mm3 (4.2-5.4); White Blood Count 8.3 K/mm3 (4.4-11.0)
[2025-04-18 14:41] LABS: Prothrombin Time (Protime)PT. 15.1 SECONDS (11.7-14.9)
[2025-04-18 15:24] LABS: AST(SGOT) 38 U/L (<=31); Alanine Aminotransfer ALT/SGPT 41 U/L (<=34); Albumin, Serum 4.0 g/dL (3.5-5.0); Alkaline Phosphatase 106 U/L (35-104); Anion Gap 13 (5-15); BUN 11 mg/dL (4-19); BUN/Creat Ratio 13.7 RATIO (10-20); Bilirubin, Direct 0.42 mg/dL (0.00-0.30); Calcium,Total 9.8 mg/dL (7.6-11.0); Carbon Dioxide 23.3 mmol/L (21.0-32.0); Chloride 102 mmol/L (98-108); Cholesterol 173 mg/dL (<=200); Ferritin 129 ng/mL (22-378); Globulin 3.4 g/dL (2.2-4.2); Glucose 99 mg/dL (70-99); Low Density Lipoprotein Calc. 119 mg/dL; Potassium 4.2 mmol/L (3.3-5.1); Triglycerides 129 mg/dL; Very Low Density Lipoprotein 26 mg/dL (5-40); Vitamin D,25 Hydroxy 18.9 ng/mL (30-100); cholesterol:hdl ratio screen 5.67
[2025-04-18 16:06] LABS: CRP 13.90 mg/L (0.0-3.0); Iron 61 ug/dL (50-170); Iron Binding Capacity,Total 324 ug/dL (250-450); Iron Binding Capacity,Unsat 263 ug/dL (228-428)
[2025-04-20 14:08] LABS: Anti-Smooth Muscle ABS 7 Units (0-19)
[2025-04-22 09:08] LABS: ANTINUCLEAR ANTIBODIES DIRECT Negative (Negative)
== END | disposition home or self-care (01) ==
PROVIDERS: Internal Medicine; Referring Provider Nurse Practitioner Acute Care; Visit Provider Nurse Practitioner Acute Care
DX: R74.01 Elevation of levels of liver transaminase levels (principal); K70.10 Alcoholic hepatitis without ascites; R60.9 Edema, unspecified; R16.0 Hepatomegaly, not elsewhere classified
CPT/HCPCS: 36415; 80053; 80061; 82248; 82306; 82728; 83036; 83516; 83540; 83550; 85025; 85610; 86038; 86140; 86225; 86235